=== PATIENT | female | born 1950 | race Caucasian/White ===

== ENCOUNTER → 2018-04-07 11:29 | Outpatient (CLI) | payer MEDICARE, SELFPAY ==
[2018-04-07 12:25] LABS: Anion Gap 7 (5-15); BUN 40 mg/dL (7-18); BUN/Creat Ratio 31.7 RATIO (10-20); Calcium,Total 9.1 mg/dL (8.5-10.1); Chloride 108 mmol/L (98-107); Creatinine, Serum 1.26 mg/dL (0.55-1.02); EST Glomerular Filtration Rate 45 mL/min (>60); Est Glom Filt Rate - Afr Amer 54 mL/min (>60); Glucose 165 mg/dL (74-106); Sodium Level 139 mmol/L (136-145)
== END ==
PROVIDERS: Family Provider Internal Medicine; PCP Internal Medicine; Visit Provider Internal Medicine Cardiovascular Disease
DX: I48.0 Paroxysmal atrial fibrillation (principal)
CPT/HCPCS: 36415; 80048

== ENCOUNTER 2022-05-28 03:11 | Inpatient (IN) | payer MEDICARE, SELFPAY ==
[2022-05-28] VITALS (16 sets, daily range): BP systolic 100–156; BP diastolic 58–86; PULSE 77–112; RESP 18–20; TEMP 36.8–37.6; O2SAT 89–95; BMI 37.7
--- NOTE | 2022-05-28 03:07 | PCM.HP.STD ---
HPI - General General Date of Admission: 05/28/22 Date of Service: 05/28/22 Chief Complaint: Fall, loss of balance with subsequent left femur fracture with severe pain HPI Narrative CHIQUIS STEVENS, is a 71 F who is directly admitted [facility] ED as direct admit for fall with subsequent left femur fracture. Patient had left TKR [place] [address] Niño. On 8 morning, she felt like going to bathroom for voiding urine, walked few steps on walker and then lost balance and fell down. She said she fell on the left knee and has bruise around the left knee. She did not lose loss of consciousness but had severe pain 10/10 on distal thigh/around the knee area at that time. Subsequently patient was taken to [facility], ED where they found left distal femur fracture above left knee prosthesis. I talked to ED physician Dr. Mckeon over there and he said he contacted Dr. Gerard and he would like to do surgery in [facility] therefore patient is being transferred here. Patient denies chest pain, shortness of breath, syncope, abdominal pain, dysuria or new lower urinary tract symptoms. Basic labs, imaging, EKG done in [facility] reviewed and discussed in assessment plan. [facility] Medical History Anemia Cancer Chronic back pain Chronic kidney disease, stage III (moderate) Essential (primary) hypertension High cholesterol Hyperkalemia Hyperlipidemia Osteoporosis Paroxysmal atrial fibrillation Post-menopausal Secondary pulmonary arterial hypertension Type II diabetes mellitus Home Medications aspirin 81 mg chewable tablet 81 mg PO DAILY@0800 03/04/16 [History Last Taken 03/03/16] calcium carbonate 500 mg-vitamin D3 5 mcg (200 unit) tablet 1 tab PO DAILY 03/04/16 [History Last Taken 03/03/16] gabapentin 100 mg capsule 100 mg PO TIDCM 03/04/16 [History Last Taken 03/03/16] insulin NPH isoph U-100 human 100 unit/mL (3 mL) subcutaneous pen 10 units subcut DINNER 03/04/16 [History Last Taken 03/03/16] pravastatin 20 mg tablet 10 mg PO QHS 04/11/20 [History Last Taken Unknown] acetaminophen 500 mg tablet 1,000 mg PO BID PRN Pain 05/28/22 [History Last Taken Unknown] apixaban 5 mg tablet (Eliquis) 5 mg PO BID 05/28/22 [History Last Taken Unknown] daptomycin 500 mg IV push QODAY 05/28/22 [History Last Taken Unknown] diltiazem HCl 360 mg capsule,extended release 24 hr 360 mg PO DAILY 05/28/22 [History Last Taken Unknown] ertapenem 1 gram solution for injection 0.5 g IV DAILY 05/28/22 [History Last Taken Unknown] hydrocodone-acetaminophen 5-325mg 5mg-325mg 1 tab PO Q8H PRN Pain 05/28/22 [History Last Taken Unknown] insulin NPH isoph U-100 human 100 unit/mL subcutaneous suspension (Humulin N NPH U-100 Insulin (isophane susp)) 20 unit subcut BREAKFAST 05/28/22 [History Last Taken Unknown] insulin lispro 100 unit/mL subcutaneous cartridge 5 unit subcut BREAKFAST 05/28/22 [History Last Taken Unknown] insulin lispro 100 unit/mL subcutaneous cartridge See Protocol subcut ACHS 05/28/22 [History Last Taken Unknown] latanoprost 0.005 % eye drops 1 drp EACH EYE QHS 05/28/22 [History Last Taken Unknown] losartan 25 mg PO/SL DAILY 05/28/22 [History Last Taken Unknown] metoprolol tartrate 50 mg tablet 50 mg PO Q8H 05/28/22 [History Last Taken Unknown] pantoprazole 40 mg tablet,delayed release (Protonix) 40 mg PO QHS 05/28/22 [History Last Taken Unknown] senna-docusate sodium tablet 1 tab PO BID PRN Constipation 05/28/22 [History Last Taken Unknown] Allergy/AdvReac Type Severity Reaction Status Date / Time amoxicillin [From Augmentin] Allergy PT UNSURE Verified 05/28/22 02:16 OF REACTION clavulanic acid Allergy PT UNSURE Verified 05/28/22 02:16 [From Augmentin] OF REACTION Penicillins Allergy Rash Verified 04/11/19 11:03 simvastatin [From Zocor] Allergy Rash Verified 04/11/19 11:03 lisinopril AdvReac Intermediate HYPERKALEMI Verified 04/11/19 11:03 A atorvastatin calcium AdvReac Pain in Verified 04/11/19 11:03 [From Lipitor] joints Family History Father Negative for ASCVD Mother Negative for ASCVD Surgical History History of knee replacement, total Hx of cataract surgery Social History Smoking Status: Never smoker ROS ROS Narrative Constitutional: No fever. No LOC HEENT: Reports systems reviewed and no addt'l complaints, except as documented Respiratory/Chest: Denies chest pain, shortness of breath at rest or with exertion Gastrointestinal: Denies coffee ground emesis, hematemesis or vomiting Genitourinary: Denies burning urination or new urinary tract symptoms Musculoskeletal: Left TKR 2.5. Walks on walker, loss of balance, left knee pain, current 5-6/10 intensity controlled on pain medication Neurologic: Denies seizure-like activity. No numbness or tingling or acute symptoms. skin: No ulcer. No rash Endocrinology: Reports systems reviewed and no addt'l complaints, except as documented Hematologic/Lymphatic: Reports systems reviewed and no addt'l complaints, except as documented Rest 14 ROS are negative except as mentioned in HPI Vital Signs Vital Signs Vital Signs: 05/28/22 01:49 05/28/22 02:09 Temperature 98.3 F Temperature Source Oral Pulse Rate 90 Respiratory Rate 20 H Respiratory Effort Normal Respiratory Depth Normal Respiratory Pattern Normal Blood Pressure 101/84 H Blood Pressure Mean 89 Blood Pressure Source Monitor Blood Pressure Position Semi-Fowlers Blood Pressure Location Left Forearm Pulse Ox 93 Oxygen Delivery Method Room Air Room Air Weight Weight: 204 lb 12.951 oz Body Mass Index (BMI) 37.7 Physical Exam Narrative General: Alert, Oriented x3, Cooperative, obesity grade 3, BMI 37.7 kg per metered square HEENT: Atraumatic, PERRLA, EOMI, Normocephalic Oral: Oral mucosa dry. No Gingival or Mucosal Lesions/ Ulcerations Neck: Supple, No JVD, Negative Carotid Bruits Lungs: Air entry diminished in bilateral lung bases. No crepitation/rhonchi Cardiovascular: Irregular rhythm, A. fib, Normal S1, Normal S2, No murmurs Abdomen: Bowel Sounds Present, Soft, Non Tender, Non-Distended : No renal angle tenderness. No suprapubic tenderness. Extremities: No edema, Capillary Refill Less than 3 Seconds Skin: No rashes, No breakdown Musculoskeletal: Tenderness over left distal thigh and knee. Mild bruise over medial aspect of left knee. ROM severely limited over the left knee Neurological: Cranial nerves II-XII grossly intact, DTR 2+/4 and Symmetrical, Neuro grossly intact Psych/Mental Status: flat affect Assessment & Plan Assessment/Plan (1) Closed fracture of left distal femur: (2) Paroxysmal atrial fibrillation: PLAN: Plan This is a 71-year-old female who is directly admitted on monitored bed from [facility] ED after diagnosis of left distal femur periprosthetic fracture 1. Left distal femur periprosthetic fracture: X-ray of left femur shows left distal femur periprosthetic fracture, pathological due to osteoporosis. Patient pain is controlled on pain medication currently 5-6/[address] Gerard, orthopedic surgeon consulted from [facility] ED physician. Patient took last dose of Eliquis in the evening of 05/27/2022 therefore needs 48 hours to renal clearance. Chest x-ray degenerative view shows no acute disease. Twelve-lead EKG on May 27, 2022 A. fib at 97 bpm. QTc 416 ms. ACS NSQIP risk calculated. Patient is at average risk for serious or any complication, renal failure and return to the OR. She had below average risk for pneumonia, cardiac complication, SSRI, UTI, VTE, and . No prior history of DVT/PE incentive spirometry ordered. Hold Eliquis. In SNF, patient has been walking on walker but could not calculate exact physical/functional capacity, probably less than or equal to 4 METS. Overall, it seems patient is at moderate perioperative risk for left distal femur fracture. 2. Paroxysmal A. fib/flutter on Eliquis: As mentioned above will hold Eliquis. Rate is controlled. Continue diltiazem 360 mg extended release and metoprolol tartrate 50 mg every 8 hourly. Denies history of AR/coronary artery disease or pacemaker. 3. CKD stage IIIb: BUN/creatinine 36/1.55, improved from 55/2.62 on 05/25/2022. Patient does not have clinical symptoms of UTI. UA is negative, microanalysis not indicated. Avoid nephrotoxic, diuretic. Anesthesiologist to avoid medications which are renally dependent for excretion 4. Hypertension: Current BP is 101/84. Antihypertensive medications continued with holding parameter. 5. Diabetes mellitus type 2: Patient home regimen of NPH insulin continued. Accu-Chek AC images cover with Humalog sliding scale. Glucose 194 in BMP. Last glucose check in [facility] 168. 6. Secondary pulmonary artery hypertension: Patient is not on a specific medication for that. 2D echo is ordered. 7. Dyslipidemia: Continue statin. 8. VTE prophylaxis: Bilateral SCDs. I think she will be good for 48 hours as DVT prophylaxis. Resume Eliquis when appropriate, preferably 24 hours after surgery if hemostasis is well controlled Living will/advanced directive/end of life care: Patient does have living will, signed by PCP in the chart. I reviewed it personally. Patient does not have designated power of student finance advisor for health but her niece is next of kin. After discussion of benefits/risks procedures involved with full code, DNR CC arrest and DNR CC, the patient is decided for DNR CC arrest with no intubation Patient doesn't want artificial life support including intubation, tube feed, ventilator and/chest compression, central venous catheter, vasopressor and DC shock if needed Total time spent in [id number] encounter in discussion of advanced directive 16 minutes. Charges/Coding Visit Charges Inpatient E&M: 77694 Init Hosp L3 Procedures Hospitalists Procedures: 42906 Advncd Care Plan 30 Min
[2022-05-28] MEDS: 0.45% Normal Saline 1,000 ML 75 ML IV ×2 (03:31→20:20)
[2022-05-28] MEDS: 0.9% Saline Lock 10 ML Syringe IV (03:31)
--- NOTE | 2022-05-28 03:48 | NURSING ---
Per conversation with Renetta at [facility]. Pt fell on 05/27/22 in the morning. Her last dose of Eliquis was given 05/27/22 between 1999 & 2029.
[2022-05-28] MEDS: Senna/Docusate Sodium 1 Tablet 2 TABLET PO ×2 (03:53→22:35)
[2022-05-28 03:55] LABS: Bedside Glucose 75 mg/dL (74-106)
[2022-05-28] MEDS: oxyCODONE 5 MG Tablet PO ×2 (05:50→16:46)
--- NOTE | 2022-05-28 05:55 | ECHOCS_ITS ---
Reason For Study: PRE OP Procedure This was a 2D Doppler, Color Flow transthoracic echocardiogram. Exam performed portable in patient room. Left Ventricle Normal LV size. The estimated ejection fraction is 65 %. Diastolic function is indeterminate. No regional wall motion abnormalities noted. Right Ventricle Normal RV size. Normal systolic function. Atria The left atrium is moderately enlarged. The right atrium is moderately enlarged. No doppler evidence for ASD. Mitral Valve There is moderate to severe mitral annular calcification. There is no mitral valve stenosis. Moderate (2+) mitral valve insufficiency. Tricuspid Valve There is no tricuspid stenosis. Moderate (2+) tricuspid valve insufficiency. Pulmonary artery systolic pressure is 65 mmHg. Aortic Valve Trisinus/trileaflet aortic valve. There is no aortic stenosis. No aortic valve insufficiency. Pulmonic Valve There is no pulmonic valvular stenosis. No pulmonic valve insufficiency. Great Vessels Normal aortic root. Pericardium/Pleural No pericardial effusion. MMode/2D Measurements & Calculations LVIDd: 4.6 cm IVSd: 1.3 cm Ao root diam: 3.4 cm LVIDs: 3.0 cm LVPWd: 1.6 cm RVDd: 2.3 cm FS: 34.5 % LAV(MOD-sp4): 43.0 ml LVAd ap4: 16.5 cm2 SV(MOD-sp4): 19.3 ml LVLd ap4: 6.2 cm EDV(MOD-sp4): 35.4 ml EDV(sp4-el): 36.8 ml LVAs ap4: 10.2 cm2 LVLs ap4: 5.4 cm ESV(MOD-sp4): 16.1 ml ESV(sp4-el): 16.2 ml EF(MOD-sp4): 54.6 % EF(sp4-el): 55.9 % SV(sp4-el): 20.6 ml LA A4 area: 17.1 cm2 LA dimension(2D): 4.2 cm RA A4 area: 23.3 cm2 Doppler Measurements & Calculations MV E max cady: 133.9 cm/sec Ao V2 max: 127.9 cm/sec LV V1 max: 96.7 cm/sec Ao max P.6 mmHg LV V1 max P.8 mmHg Ao V2 mean: 96.6 cm/sec LV V1 mean P.3 mmHg Ao mean P.1 mmHg LV V1 mean: 71.3 cm/sec Ao V2 VTI: 25.0 cm LV V1 VTI: 18.0 cm PA V2 max: 87.6 cm/sec TR max cady: 374.7 cm/sec TR max P.2 mmHg ECHO/Echo Complete W/ Contrast Interpretation Summary The estimated ejection fraction is 65 %. Diastolic function is indeterminate. The left atrium is moderately enlarged. The right atrium is moderately enlarged. Moderate (2+) mitral valve insufficiency. Moderate (2+) tricuspid valve insufficiency. Ordering Physician: Jairo Harris Performed By: Cecilia Payton RCS
[2022-05-28 06:56] LABS: Absolute Lymphocyte Count 1.14 X10^3/uL (0.83-4.51); Absolute Neutrophil Count 4.9 X10^3/uL (2.0-7.7); Basophil# 0.02 X10^3/uL; Basophil% 0.3 % (0-1); Eosinophil# 0.31 X10^3/uL; Eosinophils% 4.3 % (0-5); Hemoglobin 7.6 g/dL (12.0-15.0); Lymphocyte # 1.14 X10^3/ul (0.83-4.51); Lymphocyte % 15.9 % (19-41); Mean Corp Hgb Conc 30.4 g/dL (32-36); Mean Corpuscular Hgb 34.2 pg (27.0-32.0); Mean Corpuscular Volume 112.6 fL (81-99); Mean Platelet Vol. 9.4 fl (6.2-12.0); Monocyte# 0.78 X10^3/uL; Monocyte% 10.9 % (0-10); NRBC Flagged by Analyzer 0 % (0-5); Neutrophil # 4.87 X10^3/uL (2.7-7.7); Neutrophil % 67.9 % (47-70); Platelet Count 279 K/mm3 (150-450); RBC Distribution Width CV 15.9 % (11.6-14.6); RBC Distribution Width SD 64.1 fl (35.1-43.9); Red Blood Count 2.22 M/mm3 (4.2-5.4); White Blood Count 7.2 K/mm3 (4.4-11.0)
[2022-05-28 07:18] LABS: Anion Gap 5 (5-15); BUN 37 mg/dL (7-18); BUN/Creat Ratio 25.7 RATIO (10-20); Calcium,Total 8.8 mg/dL (8.5-10.1); Chloride 115 mmol/L (98-107); Creatinine, Serum 1.44 mg/dL (0.55-1.02); EST Glomerular Filtration Rate 38 mL/min (>60); Est Glom Filt Rate - Afr Amer 46 mL/min (>60); Estimated Creatinine Clearance 26.65 ml/min; Glucose 130 mg/dL (74-106); Phosphorus 3.8 mg/dL (2.5-4.9); Potassium 4.8 mmol/L (3.5-5.1); Sodium Level 143 mmol/L (136-145)
[2022-05-28 08:06] LABS: Ferritin 266 ng/mL (8-252); Iron 30 ug/dL (50-170); Iron Binding Capacity,Total 275 ug/dL (250-450); PERCENT IRON SATURATION 10.9 % (15.0-55.0)
--- NOTE | 2022-05-28 08:33 | CON.PCM_ITS ---
Assessment & Plan Assessment/Plan (1) Infection of lumbar spine: PLAN: Continue ertapenem (2) Closed fracture of left distal femur: PLAN: Natural history of the disease process and treatment options were discusse d the patient. Patient has number of confounding factors. I explained to the patient available treatment options include nonoperative treatment which likely would lead to nonunion and other medical comorbidities being exacerbated due to prolonged immobility as well as significant pain. Likelihood of returning to ambulatory status is low with proceeding to nonoperative treatment. We discussed open reduction internal fixation however, I explained that the fracture is distal and involves minimal distal bone with the prosthesis and would likely have difficult time with healing and appropriate fixation which would require significant/prolonged time of immobilization leading to similar issues with exacerbation of medical comorbidities and difficulty with returning to ambulatory status. Finally we discussed distal femoral placement as an appropriate treatment option for distal femur fracture. At this time I felt that this would be the best way to mobilize the patient and avoid exacerbation of her medical comorbidities. We have elected to proceed with this procedure. Risk and benefits of this procedure were discussed the patient including but onto blood loss, DVTs, PEs, nervous damage, infection, the risk of anesthesia loss of life. Patient is high risk for transfusion based on her anemia. I have discussed the medical team they will transfuse as appropriate. Based on the ant icipated blood loss with surgery and her history of anticoagulants I would recommend preoperative transfusion in preparation for surgical intervention. Additionally patient has active treatment for a spine infection she is receiving ertapenem will continue on these antibiotics. This places her at increased risk for infection with this procedure she will need continued antibiotic coverage for her spine infection postoperatively. Patient demonstrates an understanding of these treatment options and would like to move forward and has been adequately consented for distal femoral replacement. Plan will be to proceed with surgery tomorrow afternoon after patient has been off Eliquis for 2 days. (3) Paroxysmal atrial fibrillation: PLAN: Per medicine service, hold anticoagulation. If bridging is necessary bridge appropriately (4) Chronic kidney disease, stage III (moderate): PLAN: Per primary service (5) Anemia: PLAN: Per primary service, recommend preoperative optimization with transfusion based on anticipated blood loss (6) Type II diabetes mellitus: PLAN: Per primary service, recommend tight glucose control. HPI Consult Data Date of Consult: 05/28/22 HPI Narrative HPI Narrative: CHIQUIS STEVENS, is a 71 F who presents today with left knee pain. Patient normally lives at home however at this time she is being treated for a spine infection with IV antibiotics, she currently has a PICC line in, and mikecristin Roy. She is on ertapenem. She uses a walker for ambulation. She got up to go to the bathroom last evening and fell. Patient does not report any loss of consciousness or dizziness. It appears to been a mechanical fall or related to weakness. She had pain in her left knee and was unable to bear weight. She presented to the [facility] where the physician in the emergency department noted she had a periprosthetic distal femur fracture. Due to the complexity of the planned surgical intervention as well as the patient she was transferred to [facility] for further care. She is been admitted to the hospitalist service. Currently she reports 6 out of 10 pain better with pain medications worse with motion. She is resting comfortable with her knee in extension. She has a Davis catheter in from the emergency department. She has a PICC line in her right arm. She is getting ertapenem. She denies any associated numbness and tingling. She has significant medical comorbidities including atrial fibrillation for which she is taking Eliquis. She did get her Eliquis dose last evening. Additionally, she has significant anemia noted today and has chronic renal disease. [facility] Medical History (Updated 05/28/22 @ 08:[address] Rashi Gerard MD) Anemia Cancer Chronic back pain Chronic kidney disease, stage III (moderate) Essential (primary) hypertension High cholesterol Hyperkalemia Hyperlipidemia Osteoporosis Paroxysmal atrial fibrillation Post-menopausal Secondary pulmonary arterial hypertension Type II diabetes mellitus Home Medications aspirin 81 mg chewable tablet 81 mg PO DAILY@0800 03/04/16 [History Last Taken 03/03/16] calcium carbonate 500 mg-vitamin D3 5 mcg (200 unit) tablet 1 tab PO DAILY 03/04/16 [History Last Taken 03/03/16] gabapentin 100 mg capsule 100 mg PO TIDCM 03/04/16 [History Last Taken 03/03/16] insulin NPH isoph U-100 human 100 unit/mL (3 mL) subcutaneous pen 10 units subcut DINNER 03/04/16 [History Last Taken 03/03/16] pravastatin 20 mg tablet 10 mg PO QHS 04/11/20 [History Last Taken Unknown] acetaminophen 500 mg tablet 1,000 mg PO BID PRN Pain 05/28/22 [History Last Taken Unknown] apixaban 5 mg tablet (Eliquis) 5 mg PO BID 05/28/22 [History Last Taken Unknown] daptomycin 500 mg IV push QODAY 05/28/22 [History Last Taken Unknown] diltiazem HCl 360 mg capsule,extended release 24 hr 360 mg PO DAILY 05/28/22 [History Last Taken Unknown] ertapenem 1 gram solution for injection 0.5 g IV DAILY 05/28/22 [History Last Taken Unknown] hydrocodone-acetaminophen 5-325mg 5mg-325mg 1 tab PO Q8H PRN Pain 05/28/22 [History Last Taken Unknown] insulin NPH isoph U-100 human 100 unit/mL subcutaneous suspension (Humulin N NPH U-100 Insulin (isophane susp)) 20 unit subcut BREAKFAST 05/28/22 [History Last Taken Unknown] insulin lispro 100 unit/mL subcutaneous cartridge 5 unit subcut BREAKFAST 05/28/22 [History Last Taken Unknown] insulin lispro 100 unit/mL subcutaneous cartridge See Protocol subcut ACHS 05/28/22 [History Last Taken Unknown] latanoprost 0.005 % eye drops 1 drp EACH EYE QHS 05/28/22 [History Last Taken Unknown] losartan 25 mg PO/SL DAILY 05/28/22 [History Last Taken Unknown] metoprolol tartrate 50 mg tablet 50 mg PO Q8H 05/28/22 [History Last Taken Unknown] pantoprazole 40 mg tablet,delayed release (Protonix) 40 mg PO QHS 05/28/22 [History Last Taken Unknown] senna-docusate sodium tablet 1 tab PO BID PRN Constipation 05/28/22 [History Last Taken Unknown] Allergy/AdvReac Type Severity Reaction Status Date / Time amoxicillin [From Augmentin] Allergy PT UNSURE Verified 05/28/22 02:16 OF REACTION clavulanic acid Allergy PT UNSURE Verified 05/28/22 02:16 [From Augmentin] OF REACTION Penicillins Allergy Rash Verified 04/11/19 11:03 simvastatin [From Zocor] Allergy Rash Verified 04/11/19 11:03 lisinopril AdvReac Intermediate HYPERKALEMI Verified 04/11/19 11:03 A atorvastatin calcium AdvReac Pain in Verified 04/11/19 11:03 [From Lipitor] joints Family History Father Negative for ASCVD Mother Negative for ASCVD Surgical History History of knee replacement, total Hx of cataract surgery Social History Smoking Status: Never smoker ROS Constitutional Constitutional: Reports systems reviewed and no addt'l complaints, except as documented Eyes Eyes: Reports systems reviewed and no addt'l complaints, except as documented ENT HEENT: Reports systems reviewed and no addt'l complaints, except as documented Cardiovascular Cardiovascular: Reports systems reviewed and no addt'l complaints, except as documented Respiratory/Chest Respiratory/Chest: Reports systems reviewed and no addt'l complaints, except as documented Gastrointestinal Gastrointestinal: Reports systems reviewed and no addt'l complaints, except as documented Genitourinary Genitourinary: Reports systems reviewed and no addt'l complaints, except as documented Musculoskeletal Musculoskeletal: Reports systems reviewed and no addt'l complaints, except as documented Integumentary Integumentary: Reports systems reviewed and no addt'l complaints, except as doc umented Neurologic Neurologic: Reports systems reviewed and no addt'l complaints, except as documented Psychiatric Psychiatric: Reports systems reviewed and no addt'l complaints, except as documented Endocrine Endocrinology: Reports systems reviewed and no addt'l complaints, except as documented Hematologic/Lymphatic Hematologic/Lymphatic: Reports systems reviewed and no addt'l complaints, except as documented Allergic/Immunologic Allergic/Immunologic: Reports systems reviewed and no addt'l complaints, except as documented Physical Exam Const alert and oriented x3 Constitutional Narrative: Obese General Appearance: cooperative Orientation / Consciousness: awake HEENT normocephalic Eyes PERRL Neck No nuchal rigidity Resp normal respiratory effort Cardio Negative for diaphoretic Jugular Venous Distention: Negative for JVD GI non-distended GI Narrative: Obese Narrative: Davis catheter in place Back/Spine Back/Spine Narrative: There was no assistance was unable to roll the patient. Extremity Extremity Narrative: Left lower extremity: Ecchymosis and swelling over the distal thigh. Tenderness palpation around the knee and distal thigh. Range of motion and strength exam were deferred secondary to pain. Positive dorsiflexion EHL plantar flexion. Sensations intact light touch saphenous, sural, supers peroneal, deep peroneal tibial nerve distributions. Calves are soft and supple with no streaking or cords. Skin no jaundice Neuro oriented x3 Psych affect normal Medical Records Data Attestation: I reviewed the patient's medical records Lab / Micro Data Attestation: I reviewed the patient's lab results. Result Diagrams: 05/28/22 05:45 05/28/22 05:45 Labs: Laboratory Results - last 24 hr 05/28/22 03:33: POC Glucose 75 05/28/22 05:45: WBC 7.2, RBC 2.22 L, Hgb 7.6 L, Hct 25.0 L, MCV 112.6 H, MCH 34.2 H, MCHC 30.4 L, RDW Std Deviation 64.1 H, RDW Coeff of Sherif 15.9 H, Plt Count 279, MPV 9.4, Immature Gran % (Auto) 0.700, Neut % (Auto) 67.9, Lymph % (Auto) 15.9 L, Wilbarger % (Auto) 10.9 H, Eos % (Auto) 4.3, Baso % (Auto) 0.3, Absolute Neuts (auto) 4.9, Absolute Lymphs (auto) 1.14, Nucleated RBC % 0 05/28/22 05:45: Sodium 143, Potassium 4.8, Chloride 115 H, Carbon Dioxide 23.0, Anion Gap 5, BUN 37 H, Creatinine 1.44 H, Estim Creat Clear Calc 26.65, Est GFR (MDRD) Af Amer 46 L, Est GFR (MDRD) Non-Af 38 L, BUN/Creatinine Ratio 25.7 H, Glucose 130 H, Calcium 8.8, Phosphorus 3.8, Magnesium 2.0 05/28/22 05:45: Iron 30 L, TIBC 275, Iron Saturation 10.9 L, Ferritin 266 H
[2022-05-28 08:50] LABS: Bedside Glucose 118 mg/dL (74-106)
[2022-05-28] MEDS: Aspirin 81 MG TAB.CHEW PO (08:56)
[2022-05-28] MEDS: Metoprolol Tartrate 50 MG Tablet PO ×3 (08:56→23:48)
[2022-05-28] MEDS: dilTIAZem CD 180 MG Capsule 360 MG PO (08:56)
[2022-05-28] MEDS: Calcium Carb/Vitamin D 1 TABLET Tablet PO (08:56)
[2022-05-28] MEDS: Pantoprazole Sodium 40 MG Tablet PO (08:57)
[2022-05-28] MEDS: Acetaminophen 325 MG Tablet 650 MG PO ×2 (08:58→16:45)
[2022-05-28] MEDS: Gabapentin 100 MG Capsule PO ×3 (08:59→16:46)
[2022-05-28] MEDS: Insulin NPH Human 100 UNITS/ML PEN 20 UNITS SC (09:00)
[2022-05-28] MEDS: Nystatin Powder 15gm Bottle 1 APPLIC TOPICAL ×2 (11:20→22:33)
[2022-05-28 11:45] LABS: Bedside Glucose 84 mg/dL (74-106)
--- NOTE | 2022-05-28 12:07 | NURSING ---
Patient and caregiver Esta at bedside, declines to sign operation consent at this time, states they would like to give more consideration to option since they have spoken directly with Dr. Gerard.
--- NOTE | 2022-05-28 12:09 | CASEMGMT ---
Social Work NOLAN met with pt and two nieces Francisco and Jocy. NOLAN introduced self and role of SW. Pt had been living at home alone and independently with niece Francisco across the drive from her. Last pt was admitted to [facility] for 6 weeks of IV ATB. Pt fell at SNF and now presents with femur fx. Pt and family state they have met with ortho and are considering options for femur fx. Per pt and family, currently the plan will be for pt to return to [facility]. NOLAN spoke with pt regarding advance directives and pt does not have these documents but would like to complete. NOLAN assisted pt in completing Living Will and Health care POA naming her niece Francisco Baxter. Originals given to pt and copies placed on pt chart. NOLAN will assist pt in returning to [facility] when pt is ready for d/c. GENEVIEVE Padgett
--- NOTE | 2022-05-28 12:21 | PN.HOSP_ITS ---
Subjective Subjective Patient seen and examined. She complained of pain in her left hip, especially with movement. She has no other complaints. hb is 7.6. She denies any history of anemia, or any dark stools or bright red blood per rectum, or any coffee ground emesis. She also denies any history of PUDx. Review of systems is otherwise n egative. Objective Data Objective Data Vital Signs: Vital Signs Temp Pulse Resp BP Pulse Ox O2 Del Method 98.5 F 102 H 20 H 142/78 H 93 Room Air 05/28/22 08:13 05/28/22 12:04 05/28/22 08:13 05/28/22 08:13 05/28/22 08:13 05/28/22 08:13 Oxygen Delivery Method Room Air Weight: 207 lb 3.752 oz Body Mass Index (BMI) 37.7 Intake & Output: Intake and Output for Last 24 Hours 05/26/22 05/27/22 05/28/22 23:59 23:59 23:59 Intake Total 400 / 400 Output Total 300 / 300 Balance 100 / 100 Lab / Micro Data Result Diagrams: 05/28/22 05:45 05/28/22 05:45 Labs: Laboratory Results - last 24 hr 05/28/22 03:33: POC Glucose 75 05/28/22 05:45: WBC 7.2, RBC 2.22 L, Hgb 7.6 L, Hct 25.0 L, MCV 112.6 H, MCH 34.2 H, MCHC 30.4 L, RDW Std Deviation 64.1 H, RDW Coeff of Sherif 15.9 H, Plt Count 279, MPV 9.4, Immature Gran % (Auto) 0.700, Neut % (Auto) 67.9, Lymph % (Auto) 15.9 L, [place] % (Auto) 10.9 H, Eos % (Auto) 4.3, Baso % (Auto) 0.3, Absolute Neuts (auto) 4.9, Absolute Lymphs (auto) 1.14, Nucleated RBC % 0 05/28/22 05:45: Sodium 143, Potassium 4.8, Chloride 115 H, Carbon Dioxide 23.0, Anion Gap 5, BUN 37 H, Creatinine 1.44 H, Estim Creat Clear Calc 26.65, Est GFR (MDRD) Af Amer 46 L, Est GFR (MDRD) Non-Af 38 L, BUN/Creatinine Ratio 25.7 H, Glucose 130 H, Calcium 8.8, Phosphorus 3.8, Magnesium 2.0 05/28/22 05:45: Iron 30 L, TIBC 275, Iron Saturation 10.9 L, Ferritin 266 H 05/28/22 08:05: POC Glucose 118 H 05/28/22 11:22: POC Glucose 84 Physical Exam Const alert, oriented x3 and no apparent distress HEENT head/scalp atraumatic and moist oral mucous membranes Head and Scalp: normocephalic Mouth: oral and palatal mucosa normal Eyes PERRL, EOMs intact bilaterally and conjunctivae normal Neck no lymphadenopathy and supple Resp normal respiratory effort, no retractions, no use of accessory muscles and clear to auscultation bilaterally Cardio regular rate, regular rhythm, S1 normal heart sound, S2 normal heart sound and no murmurs GI normal to inspection, nondistended, normoactive bowel sounds, soft to palpation and non-tender Extremity Extremity Narrative: LLE externally rotated Neuro oriented x3, CN's II-XII intact bilaterally and no focal motor deficits Sensorium / Orientation: awake Psych affect normal Assessment & Plan Assessment/Plan (1) Closed fracture of left distal femur: PLAN: Plan #Left distal femoral fracture due to mechanical fall * orthopedic surgery on board * for surgery tomorrow * eliquis on hold * PT/OT on board * fall precautions * continue current pain meds * #Anemia * Hemoglobin is 7.6. Patient denies any history of peptic ulcer disease * Iron panel ordered. Stool for occult blood also ordered. Iron panel showed low iron level of 13 with TIBC of 275 and iron saturation of only 10.9 with ferritin only mildly elevated at 266. * Stool for occult blood is pending. We will check vitamin B12 and folate as well as anemia appears to be a macrocytic anemia. * Start on p.o. pantoprazole 40 mg daily. * Transfuse with 1 unit of packed red blood cells to optimize patient prior to surgery. * Will likely benefit from follow-up with gastroenterology on outpatient basis for further work-up * #Paroxysmal A. fib: Eliquis on hold. On Cardizem and metoprolol. #Hypertension: on metoprolol #Type 2 diabetes mellitus; on NPH insulin 10 units qhs and 20 units qam. Insulin sliding scale. Accu-Cheks ACH S. #Dyslipidemia: On statin #CKD stage IIIb: Creatinine is 1.44. Previous labs from 2018 showed creatinine of 1.26. Will monitor. DVT prophylaxis: SCDs Charges/Coding Visit Charges Inpatient E&M: 21034 Subs Hosp L3
--- NOTE | 2022-05-28 12:56 | CASEMGMT ---
Discharge Automatic Toe Laster Teresa rice/[employer] production assistant faxed patient update to mandi arceo. Teresa Del Toro Discharge Automatic Toe Laster
[2022-05-28 14:02] LABS: Vitamin B12 591 pg/mL (211-911)
[2022-05-28 16:45] LABS: Bedside Glucose 116 mg/dL (74-106)
[2022-05-28] MEDS: Insulin NPH Human 100 UNITS/ML PEN 10 UNITS SC (16:46)
--- NOTE | 2022-05-28 18:55 | NURSING ---
blood done, NS flush bag infusing to flush line.
[2022-05-28] MEDS: Pravastatin 20 MG Tablet 10 MG PO (22:34)
[2022-05-28] MEDS: Latanoprost 0.005% 1 Bottle 1 DRP EACH EYE (22:35)
[2022-05-29] VITALS (48 sets, daily range): BP systolic 45–150; BP diastolic 23–92; PULSE 38–120; RESP 14–28; TEMP 35.4–37.7; O2SAT 88–100; BMI 38.2
[2022-05-29 00:10] LABS: Bedside Glucose 143 mg/dL (74-106)
[2022-05-29 05:57] LABS: Absolute Lymphocyte Count 1.05 X10^3/uL (0.83-4.51); Basophil# 0.04 X10^3/uL; Basophil% 0.5 % (0-1); Eosinophil# 0.29 X10^3/uL; Eosinophils% 3.5 % (0-5); Hematocrit 25.3 % (37-47); Hemoglobin 8.3 g/dL (12.0-15.0); Lymphocyte # 1.05 X10^3/ul (0.83-4.51); Lymphocyte % 12.5 % (19-41); Mean Corp Hgb Conc 32.8 g/dL (32-36); Mean Corpuscular Hgb 34.2 pg (27.0-32.0); Mean Corpuscular Volume 104.1 fL (81-99); Mean Platelet Vol. 9.4 fl (6.2-12.0); Monocyte# 0.96 X10^3/uL; Monocyte% 11.5 % (0-10); NRBC Flagged by Analyzer 0.4 % (0-5); Neutrophil # 5.97 X10^3/uL (2.7-7.7); Neutrophil % 71.3 % (47-70); POSITIVE MORPHOLOGY YES; Platelet Count 252 K/mm3 (150-450); RBC Distribution Width CV 19.2 % (11.6-14.6); Red Blood Count 2.43 M/mm3 (4.2-5.4); White Blood Count 8.4 K/mm3 (4.4-11.0)
[2022-05-29 06:00] LABS: Differential Indicated SCAN CRITERIA MET
[2022-05-29] MEDS: oxyCODONE 5 MG Tablet PO ×2 (06:05→23:07)
[2022-05-29] MEDS: Acetaminophen 325 MG Tablet 650 MG PO (06:05)
[2022-05-29 06:21] LABS: Anisocytosis 2+; Macrocytosis 2+
[2022-05-29 06:30] LABS: Bedside Glucose 133 mg/dL (74-106)
[2022-05-29 06:30] LABS: International Normalized Ratio 1.5; Partial Thromboplast Time 37.5 Seconds (24.1-36.2); Prothrombin Time (Protime)PT. 17.5 SECONDS (11.7-14.9)
[2022-05-29 06:38] LABS: Anion Gap 6 (5-15); BUN 30 mg/dL (7-18); BUN/Creat Ratio 24.2 RATIO (10-20); Calcium,Total 8.2 mg/dL (8.5-10.1); Chloride 111 mmol/L (98-107); Creatinine, Serum 1.24 mg/dL (0.55-1.02); EST Glomerular Filtration Rate 45 mL/min (>60); Est Glom Filt Rate - Afr Amer 55 mL/min (>60); Estimated Creatinine Clearance 30.95 ml/min; Glucose 129 mg/dL (74-106); Potassium 5.1 mmol/L (3.5-5.1); Sodium Level 140 mmol/L (136-145)
[2022-05-29 07:38] LABS: Hemoglobin A1c 6.9 % (3.8-5.6)
[2022-05-29] MEDS: Gabapentin 100 MG Capsule PO (07:50)
[2022-05-29] MEDS: Metoprolol Tartrate 50 MG Tablet PO (08:04)
[2022-05-29] MEDS: 0.45% Normal Saline 1,000 ML 75 ML IV (09:02)
[2022-05-29] MEDS: dilTIAZem CD 180 MG Capsule 360 MG PO (09:03)
[2022-05-29] MEDS: Nystatin Powder 15gm Bottle 1 APPLIC TOPICAL ×2 (09:11→23:15)
[2022-05-29] MEDS: Calcium Carb/Vitamin D 1 TABLET Tablet PO (09:11)
[2022-05-29] MEDS: Pantoprazole Sodium 40 MG Tablet PO (09:11)
[2022-05-29] MEDS: Senna/Docusate Sodium 1 Tablet 2 TABLET PO (09:12)
--- NOTE | 2022-05-29 09:32 | PN.HOSP_ITS ---
Subjective Subjective Patient seen and examined. Her caretakers were by her bedside. She had no active complaints and had an uneventful night. Review of systems is otherwise negative. hb is up to 8.6 today after she was transfused with 1 unit of PRBC. She is a bit tachycardic today. REview of systems is otherwise negative. Objective Data Objective Data Vital Signs: Vital Signs Temp Pulse Resp BP Pulse Ox O2 Del Method O2 Flow Rate 99 F 116 H 18 116/65 96 Nasal Cannula 2 05/29/22 07:59 05/29/22 08:04 05/29/22 07:59 05/29/22 08:04 05/29/22 07:59 05/29/22 07:59 05/29/22 07:43 Oxygen Flow Rate (L/min) 2 Oxygen Delivery Method Nasal Cannula Weight: 207 lb 14.334 oz Body Mass Index (BMI) 37.7 Intake & Output: Intake and Output for Last 24 Hours 05/27/22 05/28/22 05/29/22 23:59 23:59 23:59 Intake Total 2120.75 / 2120.75 918.75 / 918.75 Output Total 1125 / 1125 500 / 500 Balance 995.75 / 995.75 418.75 / 418.75 Lab / Micro Data Result Diagrams: 05/29/22 04:59 05/29/22 04:59 Labs: Laboratory Results - last 24 hr 05/28/22 11:22: POC Glucose 84 05/28/22 13:20: Blood Type O NEGATIVE, Antibody Screen NEGATIVE, Crossmatch See Detail 05/28/22 13:20: Vitamin B12 591 05/28/22 16:19: POC Glucose 116 H 05/28/22 22:25: POC Glucose 143 H 05/29/22 04:59: PT 17.5 H, INR 1.5, APTT 37.5 H 05/29/22 04:59: Hemoglobin A1c 6.9 H 05/29/22 04:59: WBC 8.4, RBC 2.43 L, Hgb 8.3 L, Hct 25.3 L, MCV 104.1 H D, MCH 34.2 H, MCHC 32.8 D, RDW Std Deviation 72.0 H, RDW Coeff of Sherif 19.2 H, Plt Count 252, MPV 9.4, Immature Gran % (Auto) 0.700, Neut % (Auto) 71.3 H, Lymph % (Auto) 12.5 L, [place] % (Auto) 11.5 H, Eos % (Auto) 3.5, Baso % (Auto) 0.5, Absolute Neuts (auto) 6.0, Absolute Lymphs (auto) 1.05, Nucleated RBC % 0.4, Anisocytosis 2+, Macrocytosis 2+ 05/29/22 04:59: Sodium 140, Potassium 5.1, Chloride 111 H, Carbon Dioxide 23.0, Anion Gap 6, BUN 30 H, Creatinine 1.24 H, Estim Creat Clear Calc 30.95, Est GFR (MDRD) Af Amer 55 L, Est GFR (MDRD) Non-Af 45 L, BUN/Creatinine Ratio 24.2 H, Glucose 129 H, Calcium 8.2 L 05/29/22 06:07: POC Glucose 133 H Radiography Diagnostic Testing: Radiology Impression Echocardiogram 05/28/22 05:55 Interpretation Summary The estimated ejection fraction is 65 %. Diastolic function is indeterminate. The left atrium is moderately enlarged. The right atrium is moderately enlarged. Moderate (2+) mitral valve insufficiency. Moderate (2+) tricuspid valve insufficiency. ___ Ordering Physician: Jairo Harris Performed By: Cecilia Payton RCS Physical Exam Const alert, oriented x3 and no apparent distress HEENT head/scalp atraumatic and moist oral mucous membranes Eyes PERRL, EOMs intact bilaterally and conjunctivae normal Neck no lymphadenopathy and supple Resp normal respiratory effort, no retractions, no use of accessory muscles and clear to auscultation bilaterally Cardio regular rhythm, S1 normal heart sound, S2 normal heart sound and no murmurs Cardio Narrative: tachycardic GI normal to inspection, nondistended, normoactive bowel sounds, soft to palpation and non-tender Extremity Extremity Narrative: LLE externally rotated, tender to touch Neuro oriented x3, CN's II-XII intact bilaterally and no focal motor deficits Sensorium / Orientation: awake Psych affect normal Assessment & Plan Assessment/Plan (1) Closed fracture of left distal femur: PLAN: Plan #Left distal femoral fracture due to mechanical fall * orthopedic surgery on board * for surgery today * eliquis on hold * PT/OT on board * fall precautions * continue current pain meds * #Anemia * appears to be an iron deficiency anemia * she was transfused with one unit of PRBC yesterday * Hemoglobin is 7.6. Patient denies any history of peptic ulcer disease * Iron panel showed low iron level of 13 with TIBC of 275 and iron saturation of only 10.9 with ferritin only mildly elevated at 266. * vitamin B12 is WNL. rbc folate is pending * on PO pantoprazole 40mg daily * in light of iron deficiency anemia, will consult GI for evaluation, especially as decision will have to be made about whether to continue blood thinners or otherwise. * type and cross for surgery * * #Paroxysmal A. fib: Eliquis on hold. On Cardizem and metoprolol. #Hypertension: on metoprolol #Type 2 diabetes mellitus; on NPH insulin 10 units qhs and 20 units qam. Insulin sliding scale. Accu-Cheks ACH S. A1C is 6.9 #Dyslipidemia: On statin #CKD stage IIIb: Creatinine is 1.24 today. Previous labs from 2018 showed creatinine of 1.26. Will monitor. DVT prophylaxis: SCDs Charges/Coding Visit Charges Inpatient E&M: 20758 Subs Hosp L2
--- NOTE | 2022-05-29 10:24 | CASEMGMT ---
Social Work Phone call to Margaret at [facility] and updated given that surgery is scheduled for today. Margaret confirms pt can return to [facility] when medically ready. Green sheet placed on pt chart in the event pt is ready for discharge over the weekend. Pt will need a negative covid test to return to [facility]. Plan: [facility], skilled level of care when medically ready. GENEVIEVE Padgett
--- NOTE | 2022-05-29 11:31 | PCM.PN.ORT ---
Objective Data Objective Data Vital Signs: Vital Signs Temp Pulse Resp BP Pulse Ox O2 Del Method O2 Flow Rate 98.2 F 101 H 18 127/77 H 100 Room Air 2 05/29/22 11:10 05/29/22 11:10 05/29/22 11:10 05/29/22 11:10 05/29/22 11:10 05/29/22 11:10 05/29/22 10:00 Oxygen Flow Rate (L/min) 2 Oxygen Delivery Method Room Air Weight: 207 lb 14.334 oz Body Mass Index (BMI) 38.2 Intake & Output: Intake and Output for Last 24 Hours 05/27/22 05/28/22 05/29/22 23:59 23:59 23:59 Intake Total 2120.75 / 2120.75 973.75 / 973.75 Output Total 1125 / 1125 500 / 500 Balance 995.75 / 995.75 473.75 / 473.75 Lab / Micro Data Result Diagrams: 05/29/22 04:59 05/29/22 04:59 Labs: Laboratory Results - last 24 hr 05/28/22 11:22: POC Glucose 84 05/28/22 13:20: Blood Type O NEGATIVE, Antibody Screen NEGATIVE, Crossmatch See Detail 05/28/22 13:20: Vitamin B12 591 05/28/22 13:20: Crossmatch See Detail 05/28/22 16:19: POC Glucose 116 H 05/28/22 22:25: POC Glucose 143 H 05/29/22 04:59: PT 17.5 H, INR 1.5, APTT 37.5 H 05/29/22 04:59: Hemoglobin A1c 6.9 H 05/29/22 04:59: WBC 8.4, RBC 2.43 L, Hgb 8.3 L, Hct 25.3 L, MCV 104.1 H D, MCH 34.2 H, MCHC 32.8 D, RDW Std Deviation 72.0 H, RDW Coeff of Sherif 19.2 H, Plt Count 252, MPV 9.4, Immature Gran % (Auto) 0.700, Neut % (Auto) 71.3 H, Lymph % (Auto) 12.5 L, [place]ke % (Auto) 11.5 H, Eos % (Auto) 3.5, Baso % (Auto) 0.5, Absolute Neuts (auto) 6.0, Absolute Lymphs (auto) 1.05, Nucleated RBC % 0.4, Anisocytosis 2+, Macrocytosis 2+ 05/29/22 04:59: Sodium 140, Potassium 5.1, Chloride 111 H, Carbon Dioxide 23.0, Anion Gap 6, BUN 30 H, Creatinine 1.24 H, Estim Creat Clear Calc 30.95, Est GFR (MDRD) Af Amer 55 L, Est GFR (MDRD) Non-Af 45 L, BUN/Creatinine Ratio 24.2 H, Glucose 129 H, Calcium 8.2 L 05/29/22 06:07: POC Glucose 133 H Radiography Diagnostic Testing: Radiology Impression Echocardiogram 05/28/22 05:55 Interpretation Summary The estimated ejection fraction is 65 %. Diastolic function is indeterminate. The left atrium is moderately enlarged. The right atrium is moderately enlarged. Moderate (2+) mitral valve insufficiency. Moderate (2+) tricuspid valve insufficiency. Ordering Physician: Jairo Harris Performed By: Cecilia Payton RCS Assessment & Plan Assessment/Plan (1) Closed fracture of left distal femur: PLAN: Patient seen and examined in the preoperative area today. Left lower extremity was marked after agreeing this was appropriate extremity for surgery. Exam is unchanged. Patient had an uneventful night. She did receive packed red blood cells. Hemoglobin remained 8.3 she will receive blood intraoperatively per anesthesia's request. At this time after having time to contemplate risks and benefits of surgical procedure family and patient wished to proceed as planned yesterday. Antibiotics on-call to the operating room. Joint compound will be ordered. TXA will be ordered for lavage of the wound. We will proceed with surgery this afternoon.
[2022-05-29] MEDS: Cefazolin 2 GM in 0.9% Normal Saline 100 ML IV (11:37)
--- NOTE | 2022-05-29 13:30 | KNEE_PTH ---
PATIENT: CHIQUIS STEVENS LOC: [facility] U#:[id number] AGE/SX: 71/F ROOM: [facility]02 RE05/28/[address]: Dr. Jac Payan DO : 1950 BED: 1 DIS: 06/01/2022 SPEC #: [id number] RECD: 05/29/22 15:59 STATUS: STORM REMary #: [id number] SOTERO: 05/29/22 13:[address]: Rashi Gerard DEPT: SURGICAL PATHOLOGY RECD BY: Martha Luz ENTERED: 06/01/22 08:42 SP TYPE: TOTAL KNEE OTHR DR: MD Dr. Josh Alvarez MD Dr. Derek Brown, DO Dr. Eric Jopperi, DO Dr. Nana Yaa Koram, MD Dr. Natthavat Tanphaichitr, MD Dr. Prakash Chand, MD Christina Muller, OPERATOR/ASSISTANT FOREMAN-C Tissues: Knee, NOS Procedures: Decalcification bone/plaque Surgery Specimen Level IV HEADER OPERATION: Distal femoral replacement PRE-OP DIAGNOSIS: Closed fracture of left distal femur TISSUE SUBMITTED: Bone, soft tissue and hardware of left knee MICROSCOPIC DIAGNOSIS Bone, soft tissue and hardware of left knee: Fragments of bone with focal area of hemorrhage, clinically fracture. Orthopedic hardware (gross only). MICROSCOPIC DESCRIPTION Slides are reviewed. GROSS DESCRIPTION Received is one container designated left knee. The specimen consists of orthopedic hardware and bone fragments. One of the piece consists of metallic hardware, resembling tibial condyles, and measures 7 x 5 x 4.5 cm. Second piece consists of metallic hardware, resembling femoral condyles and containing bone and measures 7 x.6.5 x 5 cm. Third piece consists of polymer, resembling tibial condyle and measures 7 x 4.0 x 1.5 cm. Multiple detached fragments of bone also noted measuring in aggregate 7 x 6 x 2 cm. Sewer Inspector sections are submitted in three cassettes after decalcification. /TIA:gallo 06/01/22 TC:5 CPT: 66685, 09494
[2022-05-29] MEDS: Vancomycin IV 1,000 MG/20 ML Vial 2000 MG OPERA.SITE (14:05)
[2022-05-29 14:23] LABS: Hematocrit 24.3 % (37-47); Hemoglobin 7.8 g/dL (12.0-15.0)
--- NOTE | 2022-05-29 14:58 | PCM.OPRPT ---
Report of Operation Date of Procedure: 05/29/22 Pre-Operative Diagnosis: Left periprosthetic distal femur fracture with minimal distal bone Post-Operative Diagnosis: Left periprosthetic distal femur fracture with minimal distal bone Surgery/Procedure Performed:: Revision left total knee replacement to hinged prosthesis/distal femoral replacement both components Description of Surgical Findings:: Stable reduction. Leg lengths appeared equal based on patient's supine position Surgeon: Rashi Gerard bridge gang worker: Wendy Rosenberg Type of Anesthesia: General Anesthesiologist: Jac Brown Special Medications: 2 g Ancef, 2 g TXA lavage, joint cocktail (5 mg Duramorph, 30 mL of 0.5% Ropivicaine, 1000 units of epinephrine, 30 mg of Toradol), 2 g vancomycin powder in wound Specimen's removed: 3 separate specimens were sent to microbiology Estimated Blood Loss (mL): 700 Fluids Replaced: 600 mL crystalloid, 1 unit packed red blood cells Description of Procedure: On the date of the procedure patient was seen and examined in the preoperative area. We again discussed desire to proceed with surgery. Patient agreed left lower extremity was appropriate extremity for surgery was marked. Patient was brought back to the operating room where anesthesia assumed control of the C-spine and airway. After anesthesia was administered patient was transferred to the operating table in the supine position. All bony prominences were identified well-padded. Left lower extremity was then prepped in a sterile fashion after tourniquet had been placed on the left upper thigh. While the leg was being prepped the surgeon scrubbed. Upon reentering the room the left lower extremity was draped in a standard orthopedic fashion. Incision was marked out using the previous incision and extending it proximally distally. Timeout was called everyone agreed upon the side, site, procedure to be performed, patient's identity and antibiotics given. After everyone agreed Esmarch bandage was used to exsanguinate the extremity and tourniquet was placed to 250 mmHg. Incision was taken down through skin subtenons tissue fat down to fascia. Once to identify the patella and extensor mechanism we carefully created medial lateral cutaneous flaps. Knee was flexed up and a medial parapatellar arthrotomy was made. Once we entered the joint we identified the fracture in the distal femoral component. Femoral component was removed and the distal femoral fractured bone was also removed. Prior to doing this we did measure out for our planned prosthesis 80 mm. A 80 mm saw score was placed in the bone proximal to the joint for cutting later. Once this was removed we carefully flexed up the knee and expose the proximal bone. We placed retractors behind the femur and made our soft cut for the 80 mm cut. Again this cut was based off of the measured length of the prosthesis. We then directed our attention to the tibia where the tibial component was removed using a TPS saw and flexible osteotomes. Once the tibial component was removed the residual cement was removed and we began preparing the tibia. With the knee flexed we made a tibial saw skin cut neutral to the tibial axis. Once this was done we reamed for a cone. We then prepared for the tibial baseplate. Tibial baseplate trial was then placed we direct our attention to the femur. Femur was reamed up to 12 mm. We were not able to ream beyond this due to fear of fracture as the 12 mm reamer was catching up in torquing the femur. We then used the 127 mm x 11 mm trial to trial the femur with the 65 mm small body. Once this was done we then placed the trial bearings. Knee was taken through range of motion. We could operate the medial malleolus on the contralateral side. Leg lengths appeared equal based on the patient's supine position. Knee can flex with good patella tracking. We then doubt in the femoral rotation which allowed flexion of the knee without excessive internal extra rotation. Once this was done the rotation of the femoral and tibial components were marked. Components were removed and the knee and final components were verified and opened. The wound was swetha irrigated out with 6 L normal saline. Cement was mixed and the femur was cemented into place. Once this was done we then cemented the tibia into place after placing the tibial cone. Cement restrictors were placed proximally and distally in the femur and tibia. Once the cemented implants were placed. We again trialed using the trial femoral body and noted that we were again happy with the 10 mm tibial insert. Once this was done we opened the 10 mm tibial insert. The bushings were placed in the tibia and femur. Polyethylene was put into place as well as the rotating portion of the hands. The femur was flexed up bushings were placed in the femur. The trunnion was cleaned and the femoral body was impacted into place. Sauceda taper was tested and was appropriate. At this time we were able to place the pin across the bushings and the knee showed appropriate leg lengths good range of motion good patella tracking. Hemostasis was obtained. 3-minute dilute Betadine lavage performed. 1 minute chlorhexidine lavage was performed. Copious amounts of irrigation with normal saline were irrigated throughout the wound. The wound was then closed in a layered whitman fashion using #1 Vicryl for the arthrotomy. The deep layers were closed with a combination of #1 Vicryl and #1 strata fix. There was very poor fatty tissue which made tight closure very difficult. We then used 2-0 Vicryl to close the subcutaneous layer and final skin closure was done with 2-0 nylon sutures. Sterile silver dressing was placed. Patient was awakened by anesthesia and transferred the PACU for recovery in stable condition. During the procedure her blood pressure did remain low. Repeat H&H was performed and 7.8 hemoglobin was noted. Based on this and anticipated continued blood loss as well as her cardiac history we elected to proceed with 1 more unit of packed red blood cells in the PACU. Postop plan: DVT prophylaxis: Patient will resume Eliquis tomorrow Other prophylaxis: Patient be placed on antibiotics for 2 weeks as wound heals and we follow cultures doxycycline 100 mg p.o. twice daily. Therapy: Weightbearing as tolerated, range of motion as tolerated. Follow-up: Patient will follow up in the office in 2 weeks for wound check and x-ray check. Grafts/Implants Used: [place] GMR S Complications No intraoperative complications Admit VTE Documentation VTE Present on Admission: No VTE Mechan Device Prophylaxis: SCD's and Thigh High TAMRA Hose VTE Pharm Prophylaxis ordered?: Yes
[2022-05-29 15:51] LABS: Bedside Glucose 238 mg/dL (74-106)
--- NOTE | 2022-05-29 16:07 | PN_ITS ---
Progress Note I was informed by anesthesiology that patient came out of surgery quite hypotensive with blood pressure down in the 80s systolic. At the time of saman herb to anesthesia blood pressure was 85/24. It appeared that patient had lost about 1 L of blood during surgery. 2 units of blood have been ordered and patient is being transferred to the ICU for postop monitoring. She has been started on [place]-Synephrine in the ED. We will continue with Levophed in the ICU to titrate to an MAP of more than 65. Warehouse Pricing And Inventory Clerk consulted.
--- NOTE | 2022-05-29 16:11 | NURSING ---
Family informed anaesthesia would like to speak to them down in surgical waiting room. Francisco and her spouse state they know where to go and left floor to go to waiting room.
--- NOTE | 2022-05-29 16:22 | EKG12_ITS ---
Test Reason : POST OP Blood Pressure : / mmHG Vent. Rate : 048 BPM Atrial Rate : 267 BPM P-R Int : 000 ms QRS Dur : 070 ms QT Int : 456 ms P-R-T Axes : 000 -15 -01 degrees QTc Int : 407 ms Atrial flutter with variable A-V block Nonspecific ST abnormality Abnormal ECG No previous ECGs available Confirmed by PENG SHIN, TEE ([id number]), technical editor KYRA YOUNG ([id number]) on 06/01/2022 2:10:15 PM Referred By: AMISHA Confirmed By:TEE KHOURY MD
--- NOTE | 2022-05-29 16:47 | RAD_ITS ---
STUDY: X-RAY - LEFT KNEE REASON FOR EXAM: Female, 71 years old. post op -- AP and Lateral xray of operative knee in PACU TECHNIQUE: 4 view(s) of the knee. COMPARISON: None. FINDINGS: There is a total knee arthroplasty in place. The alignment is grossly anatomic. There are postsurgical changes within the soft tissues of the ventral knee. There are vascular calcifications. Electronically Signed: Simona Huynh MD at 18:13 EDT , RAD/Knee 1 or 2 Views IMPRESSION: undefined
[2022-05-29 16:50] LABS: Base Excess -10 mmol/L (-2 to +2); Bicarbonate 16.4 mmol/L (22-26); Blood Gas Specimen Type ART; PO2 117 mmHG (75-100); SITE Art Line; SO2 98 % (95-99); Total Carbon Dioxide 17 mmol/L; pCO2 34.9 mmHg (35-45); pH 7.28 (7.35-7.45)
--- NOTE | 2022-05-29 16:55 | PCM.PN.BLA ---
Progress Note 4:55pm Patient seen down in PACU. She is responsive. Her blood pressure remains down in the 20s diastolic but systolic has gone up to the 100s. ABG was done showed pH of 7.29 with PCO2 of 34 and bicarb level of 16 indicating metabolic acidosis. Troponins have been ordered as well as CBC. BMP and lactic acid also ordered. Since patient's blood pressure is not improving significantly on Raleigh-Synephrine, will switch to Levophed. I spoke to patient about her CODE STATUS. She clarifies that she does not want any attempts at intubation or CPR if needed. I discussed this with her niece and the who are her primary caregivers and they clarified that patient had always stated that if her heart stopped no attempt should be made to revive. She did not want to be intubated ever. CODE STATUS therefore remains DNR CCA no intubation. Family updated about patient's condition and patient needs to be transferred up to ICU. Total [id number] time about CODE STATUS clarification 17 minutes. Procedures Hospitalists Procedures: 97353 Advncd Care Plan 30 Min
[2022-05-29 17:02] LABS: Hematocrit 22.8 % (37-47); Hemoglobin 7.2 g/dL (12.0-15.0); Mean Corp Hgb Conc 31.6 g/dL (32-36); Mean Corpuscular Hgb 31.2 pg (27.0-32.0); Mean Corpuscular Volume 98.7 fL (81-99); Mean Platelet Vol. 9.4 fl (6.2-12.0); Platelet Count 168 K/mm3 (150-450); RBC Distribution Width CV 17.8 % (11.6-14.6); RBC Distribution Width SD 62.5 fl (35.1-43.9); Red Blood Count 2.31 M/mm3 (4.2-5.4); White Blood Count 11.6 K/mm3 (4.4-11.0)
[2022-05-29 17:10] LABS: POSITIVE COUNT NO; POSITIVE DIFFERENTIAL NO; POSITIVE MORPHOLOGY NO; Scan Indicated on CBC? Y/N NO
[2022-05-29 17:36] LABS: Anion Gap 8 (5-15); BUN 27 mg/dL (7-18); BUN/Creat Ratio 18.5 RATIO (10-20); Calcium,Total 7.1 mg/dL (8.5-10.1); Chloride 113 mmol/L (98-107); Creatinine, Serum 1.46 mg/dL (0.55-1.02); EST Glomerular Filtration Rate 37 mL/min (>60); Est Glom Filt Rate - Afr Amer 45 mL/min (>60); Estimated Creatinine Clearance 26.28 ml/min; Glucose 251 mg/dL (74-106); Sodium Level 138 mmol/L (136-145); Troponin-I HS 9 pg/mL (3.0-54.0)
[2022-05-29] MEDS: 0.45% Normal Saline 1,000 ML 125 ML IV ×2 (19:00→23:19)
[2022-05-29] MEDS: Calcium Gluconate IV 3 GM in Syringe 1 EACH IV (20:56)
[2022-05-29] MEDS: Dextrose 50%-Water 25 GM/50 ML DISP.SYRIN IV (20:56)
[2022-05-29] MEDS: Sodium Polystyrene Sulfonate 15 GM/60 ML UDC RC (20:56)
[2022-05-29] MEDS: Insulin Lispro 10 UNIT in Syringe 0 ML 6 UNIT IV (20:56)
[2022-05-29 21:20] LABS: Bedside Glucose 212 mg/dL (74-106)
[2022-05-29 21:37] LABS: Absolute Lymphocyte Count 0.64 X10^3/uL (0.83-4.51); Absolute Neutrophil Count 16.4 X10^3/uL (2.0-7.7); Basophil# 0.04 X10^3/uL; Basophil% 0.2 % (0-1); Eosinophil# 0.01 X10^3/uL; Eosinophils% 0.1 % (0-5); Hematocrit 28.4 % (37-47); Hemoglobin 9.4 g/dL (12.0-15.0); Lymphocyte # 0.64 X10^3/ul (0.83-4.51); Lymphocyte % 3.5 % (19-41); Mean Corp Hgb Conc 33.1 g/dL (32-36); Mean Corpuscular Volume 96.6 fL (81-99); Mean Platelet Vol. 9.7 fl (6.2-12.0); Monocyte% 3.9 % (0-10); NRBC Flagged by Analyzer 2.2 % (0-5); Neutrophil # 16.35 X10^3/uL (2.7-7.7); Neutrophil % 89.9 % (47-70); Platelet Count 147 K/mm3 (150-450); RBC Distribution Width CV 17.2 % (11.6-14.6); RBC Distribution Width SD 58.9 fl (35.1-43.9); Red Blood Count 2.94 M/mm3 (4.2-5.4); White Blood Count 18.2 K/mm3 (4.4-11.0)
[2022-05-29 21:59] LABS: Reflex Lactate? Y
[2022-05-29 22:13] LABS: Anion Gap 8 (5-15); BUN 34 mg/dL (7-18); BUN/Creat Ratio 20.7 RATIO (10-20); Calcium,Total 7.2 mg/dL (8.5-10.1); Chloride 113 mmol/L (98-107); Creatinine, Serum 1.64 mg/dL (0.55-1.02); EST Glomerular Filtration Rate 33 mL/min (>60); Est Glom Filt Rate - Afr Amer 40 mL/min (>60); Glucose 246 mg/dL (74-106); Potassium 6.5 mmol/L (3.5-5.1); Sodium Level 139 mmol/L (136-145)
[2022-05-29] MEDS: 0.9% Saline Lock 10 ML Syringe IV (23:06)
[2022-05-29] MEDS: Pravastatin 20 MG Tablet 10 MG PO (23:14)
[2022-05-29] MEDS: Latanoprost 0.005% 1 Bottle 1 DRP EACH EYE (23:15)
[2022-05-29 23:27] LABS: Lactic Acid 3.6 mmol/L (0.4-1.9)
[2022-05-30] VITALS (62 sets, daily range): BP systolic 87–139; BP diastolic 36–65; PULSE 100–132; RESP 12–26; TEMP 36–36.8; O2SAT 92–98
[2022-05-30 04:18] LABS: Absolute Lymphocyte Count 0.72 X10^3/uL (0.83-4.51); Absolute Neutrophil Count 16.8 X10^3/uL (2.0-7.7); Basophil# 0.03 X10^3/uL; Basophil% 0.2 % (0-1); Hemoglobin 8.6 g/dL (12.0-15.0); Lymphocyte # 0.72 X10^3/ul (0.83-4.51); Mean Corp Hgb Conc 33.1 g/dL (32-36); Mean Corpuscular Hgb 31.4 pg (27.0-32.0); Mean Corpuscular Volume 94.9 fL (81-99); Monocyte# 0.44 X10^3/uL; Monocyte% 2.4 % (0-10); NRBC Flagged by Analyzer 1.7 % (0-5); Neutrophil # 16.79 X10^3/uL (2.7-7.7); Neutrophil % 92.2 % (47-70); Platelet Count 171 K/mm3 (150-450); RBC Distribution Width CV 17.4 % (11.6-14.6); RBC Distribution Width SD 58.1 fl (35.1-43.9); Red Blood Count 2.74 M/mm3 (4.2-5.4); White Blood Count 18.2 K/mm3 (4.4-11.0)
[2022-05-30 04:36] LABS: Anion Gap 8 (5-15); BUN 36 mg/dL (7-18); BUN/Creat Ratio 21.8 RATIO (10-20); Calcium,Total 7.5 mg/dL (8.5-10.1); Chloride 111 mmol/L (98-107); Creatinine, Serum 1.65 mg/dL (0.55-1.02); EST Glomerular Filtration Rate 32 mL/min (>60); Est Glom Filt Rate - Afr Amer 39 mL/min (>60); Estimated Creatinine Clearance 23.26 ml/min; Glucose 287 mg/dL (74-106); Potassium 5.4 mmol/L (3.5-5.1); Sodium Level 138 mmol/L (136-145)
[2022-05-30] MEDS: 0.9% Saline Lock 10 ML Syringe IV (05:49)
[2022-05-30] MEDS: Insulin Lispro 100 UNIT/ML INSULN.PEN SC ×4 (05:50→22:47)
--- NOTE | 2022-05-30 06:05 | CON.PCM.CC_ITS ---
Assessment & Plan Assessment/Plan (1) Shock: PLAN: Plan RECOMMENDATIONS: 1. Continue vasopressor support to maintain a mean arterial pressure at or above 65 mmHg. 2. Obtain and send blood and urine cultures. 3. Check MRSA screen. If positive, initiate vancomycin. 4. Continue to monitor H&H. Transfuse if hemoglobin drops below 7 g/dL. 5. Start PPI therapy twice daily. 6. Continue to hold Eliquis and home antihypertensives. 7. Obtain plain film chest x-ray. 8. Wean supplemental oxygen as tolerated. Encourage incentive spirometer use. IMPRESSIONS: 1. Undifferentiated shock Potential etiologies include septic, hemorrhagic or postanesthesia shock. The patient has a recent complex medical history including lumbar spine discitis/osteomyelitis, for which the patient deferred undergoing surgery. She was discharged recently from [facility] on May 22 with a PICC line, with tentative plans for prolonged IV antibiotics. Accordingly, the patient's lumbar spine and indwelling vascular catheter potential sources of infection. The patient did receive multiple units of packed red blood cells per ioperatively due to anemia and intraoperative blood loss. At this particular time, I am going to plan to obtain blood and urine cultures. The patient will be continued on ertapenem for now. Will check MRSA screen, and if positive, the patient will need to be started on vancomycin. In the interim, plan to continue vasopressor support to maintain a mean arterial pressure at or above 65 mmHg. Given that the patient has underlying atrial fibrillation with a heart rate that is likely being exacerbated by the Levophed, will add vasopressin in hopes of decreasing her Levophed requirement. 2. Left periprosthetic distal femur fracture now POD #1 status post surgical revision and replacement Continue routine postoperative care per orthopedic surgery recommendations. 3. Acute on chronic anemia The patient has been transfused 3 units of packed red blood cells today. There are no overt signs of GI blood loss. Plan to continue to monitor blood counts and transfuse if hemoglobin drops below 7 g/dL. Continue PPI therapy as ordered. 4. Atrial fibrillation with RVR Continue to hold home Eliquis for now. Initiate vasopressin in hopes of alleviating Levophed requirement that appears to be driving the patient's heart rate response. 5. Acute on chronic kidney disease This is most likely secondary to hemodynamic instability in the setting of #1. I do anticipate improvement with stabilization of hemodynamics. Continue to monitor urine output for now. No current indication for renal replacement therapy. 6. Obesity/diabetes mellitus/hypertension/hyperlipidemia/recent lumbar spine infection Complicates care, management, recovery and prognosis. Plan to continue antimicrobials per recent discharge instructions, including ertapenem to address her lumbar spine discitis. The patient may ultimately require reimaging of her lumbar spine, depending on her clinical course. Continue to hold home antihypertensives. TIME: 48 minutes of critical care time, independent of procedures, was spent addre ssing the patient's undifferentiated shock, distal femur fracture, acute on chronic anemia, atrial fibrillation, acute on chronic kidney disease, review of all data and collaboration with the care team. HPI Consult Data Date of Consult: 05/31/22 HPI Narrative Reason for Consultation: Questionable hemorrhagic shock HPI Narrative: The patient is a 71-year-old female, with a history as outlined below, who presented as a direct transfer from [facility] emergency department on May 28 after sustaining a mechanical fall which led to a left femur fracture. The patient has been residing at a [facility] facility to receive IV antibiotics for treatment of a spine infection. She has been receiving ertapenem. The patient has known history of atrial fibrillation, chronic kidney disease, obesity, anemia, diabetes mellitus and hyperlipidemia. According to documentation reviewed, the patient was admitted to [facility] on May 13 and discharged on May 21. During that hospitalization, the patient was noted to have a urinary tract infection and was started on antibiotics. Imaging of her lumbar spine demonstrated findings concerning for discitis with possible osteomyelitis. In addition, there was incidental note made of a potential renal mass. The patient was seen in consultation by neurosurgery. However, the patient did not opt for surgery. She had a biopsy of the L2/3 disc by interventional radiology. Cultures were apparently negative. The patient was seen in consultation by infectious diseases, who recommended long-term IV antibiotics after discharge. During that hospitalization, the patient developed atrial fibrillation with RVR. She was started on Cardizem, metoprolol and Eliquis. 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 Surface echocardiogram completed on May 28 demonstrated normal LV size and function with an ejection fraction of 65%. Pulmonary artery systolic pressure was estimated to be 65 mmHg. On May 29, the patient was taken to the OR where she underwent a revision of her left total knee replacement and distal femoral replacement. Intraoperative blood loss was estimated at 700 mL. The patient received 600 mL of crystalloid fluid and 1 unit of packed red blood cells during the procedure. Postoperatively, while in the PACU recovering, she was noted to be significantly hypotensive. She was started on [place]-Synephrine by anesthesia. Due to her vasopressor requirement, she was transferred to the medical intensive care unit for further management. On my review, the patient's lowest hemoglobin documented was 7.2 g/dL on May 29. She has received 3 units of packed red blood cells to date. The patient remains on Levophed at 20 mcg/min to maintain hemodynamic stability. She is doing well from a respiratory perspective on 1 L/min via nasal cannula. Her white count is elevated at 18,000. Chemistry profile was notable for acute on chronic kidney disease with decreasing urine output overnight. Potassium is elevated at 5.4. Her last lactate was elevated at 3.6. She is currently documented to be overall net +3.5 L for the hospitalization. [facility] Medical History (Updated 05/30/22 @ 09:[address] Sierra House MD) Anemia Cancer Chronic back pain Chronic kidney disease, stage III (moderate) Essential (primary) hypertension High cholesterol Hyperkalemia Hyperlipidemia Osteoporosis Paroxysmal atrial fibrillation Post-menopausal Secondary pulmonary arterial hypertension Type II diabetes mellitus Home Medications aspirin 81 mg chewable tablet 81 mg PO DAILY@0800 03/04/16 [History Last Taken 03/03/16] calcium carbonate 500 mg-vitamin D3 5 mcg (200 unit) tablet 1 tab PO DAILY 03/04/16 [History Last Taken 03/03/16] gabapentin 100 mg capsule 100 mg PO TIDCM 03/04/16 [History Last Taken 03/03/16] insulin NPH isoph U-100 human 100 unit/mL (3 mL) subcutaneous pen 10 units subcut DINNER 03/04/16 [History Last Taken 03/03/16] pravastatin 20 mg tablet 10 mg PO QHS 04/11/20 [History Last Taken Unknown] acetaminophen 500 mg tablet 1,000 mg PO BID PRN Pain 05/28/22 [History Last Taken Unknown] apixaban 5 mg tablet (Eliquis) 5 mg PO BID 05/28/22 [History Last Taken Unknown] daptomycin 500 mg IV push QODAY 05/28/22 [History Last Taken Unknown] diltiazem HCl 360 mg capsule,extended release 24 hr 360 mg PO DAILY 05/28/22 [History Last Taken Unknown] ertapenem 1 gram solution for injection 0.5 g IV DAILY 05/28/22 [History Last Taken Unknown] hydrocodone-acetaminophen 5-325mg 5mg-325mg 1 tab PO Q8H PRN Pain 05/28/22 [History Last Taken Unknown] insulin NPH isoph U-100 human 100 unit/mL subcutaneous suspension (Humulin N NPH U-100 Insulin (isophane susp)) 20 unit subcut BREAKFAST 05/28/22 [History Last Taken Unknown] insulin lispro 100 unit/mL subcutaneous cartridge 5 unit subcut BREAKFAST 05/28/22 [History Last Taken Unknown] insulin lispro 100 unit/mL subcutaneous cartridge See Protocol subcut ACHS 05/28/22 [History Last Taken Unknown] latanoprost 0.005 % eye drops 1 drp EACH EYE QHS 05/28/22 [History Last Taken Unknown] losartan 25 mg PO/SL DAILY 05/28/22 [History Last Taken Unknown] metoprolol tartrate 50 mg tablet 50 mg PO Q8H 05/28/22 [History Last Taken Unknown] pantoprazole 40 mg tablet,delayed release (Protonix) 40 mg PO QHS 05/28/22 [History Last Taken Unknown] senna-docusate sodium tablet 1 tab PO BID PRN Constipation 05/28/22 [History Last Taken Unknown] Allergy/AdvReac Type Severity Reaction Status Date / Time amoxicillin [From Augmentin] Allergy PT UNSURE Verified 05/28/22 02:16 OF REACTION clavulanic acid Allergy PT UNSURE Verified 05/28/22 02:16 [From Augmentin] OF REACTION Penicillins Allergy Rash Verified 04/11/19 11:03 simvastatin [From Zocor] Allergy Rash Verified 04/11/19 11:03 lisinopril AdvReac Intermediate HYPERKALEMI Verified 04/11/19 11:03 A atorvastatin calcium AdvReac Pain in Verified 04/11/19 11:03 [From Lipitor] joints Family History Father Negative for ASCVD Mother Negative for ASCVD Surgical History (Updated 05/30/22 @ 10:08 by Bowen Janas PA, PA-C) History of knee replacement, total Hx of cataract surgery Social History Smoking Status: Never smoker ROS Constitutional Constitutional: Reports fatigue; Denies chills or fever(s) Eyes Eyes: Denies blurry vision or change in vision ENT HEENT: Denies dizziness, dysphagia, epistaxis or headache(s) Cardiovascular Cardiovascular: Denies dizziness, dyspnea or edema Respiratory/Chest Respiratory/Chest: Denies chest tightness, cough or dyspnea Gastrointestinal Gastrointestinal: Denies abdominal pain, nausea or vomiting Genitourinary Genitourinary: Denies difficulty urinating Musculoskeletal Musculoskeletal: Reports back pain and joint pain Integumentary Integumentary: Denies lesions, rash or skin ulcer Neurologic Neurologic: Denies abnormal speech or confusion Psychiatric Psychiatric: Denies anxiety or depression Endocrine Endocrinology: Reports fatigue Hematologic/Lymphatic Hematologic/Lymphatic: Denies easy bleeding or easy bruising Physical Exam Const alert and no apparent distress General Appearance: cooperative Nutritional Appearance: obese HEENT normocephalic and head/scalp atraumatic Eyes PERRL, EOMs intact bilaterally and conjunctivae normal Neck supple General: trachea midline Chest inspection of chest normal Resp normal respiratory effort Auscultation: Negative for rales, rhonchi or wheezes Cardio S1 normal heart sound and S2 normal heart sound Rate: tachycardic Rhythm: abnormal rhythm GI normal to inspection, nondistended, normoactive bowel sounds Extremity no clubbing, cyanosis or edema Skin no rashes or lesions noted Neuro CN's II-XII intact bilaterally and no focal motor deficits Psych cooperative and affect normal Lab / Micro Data Result Diagrams: 05/31/22 04:55 05/31/22 04:55 Labs: Laboratory Results - last 24 hr 05/28/22 13:20: Crossmatch See Detail 05/28/22 13:20: Crossmatch See Detail 05/28/22 13:20: Crossmatch See Detail 05/29/22 04:59: PT 17.5 H, INR 1.5, APTT 37.5 H 05/29/22 04:59: Hemoglobin A1c 6.9 H 05/29/22 04:59: Anisocytosis 2+, Macrocytosis 2+ 05/29/22 04:59: Sodium 140, Potassium 5.1, Chloride 111 H, Carbon Dioxide 23.0, Anion Gap 6, BUN 30 H, Creatinine 1.24 H, Estim Creat Clear Calc 30.95, Est GFR (MDRD) Af Amer 55 L, Est GFR (MDRD) Non-Af 45 L, BUN/Creatinine Ratio 24.2 H, Glucose 129 H, Calcium 8.2 L 05/29/22 06:07: POC Glucose 133 H 05/29/22 13:50: Hgb 7.8 L, Hct 24.3 L 05/29/22 15:29: POC Glucose 238 H 05/29/22 16:28: WBC 11.6 H, RBC 2.31 L, Hgb 7.2 L, Hct 22.8 L, MCV 98.7 D, MCH 31.2, MCHC 31.6 L, RDW Std Deviation 62.5 H, RDW Coeff of Sherif 17.8 H, Plt Count 168, MPV 9.4 05/29/22 16:28: Sodium 138, Potassium 7.0 H*, Chloride 113 H, Carbon Dioxide 17.0 L, Anion Gap 8, BUN 27 H, Creatinine 1.46 H, Estim Creat Clear Calc 26.28, Est GFR (MDRD) Af Amer 45 L, Est GFR (MDRD) Non-Af 37 L, BUN/Creatinine Ratio 18.5, Glucose 251 H, Calcium 7.1 L, Troponin I High Sens 9 05/29/22 17:45: Lactic Acid 5.0 H* 05/29/22 21:01: POC Glucose 212 H 05/29/22 21:15: WBC 18.2 H, RBC 2.94 L, Hgb 9.4 L, Hct 28.4 L, MCV 96.6, MCH 32.0, MCHC 33.1, RDW Std Deviation 58.9 H, RDW Coeff of Sherif 17.2 H, Plt Count 147 L, MPV 9.7, Immature Gran % (Auto) 2.400 H, Neut % (Auto) 89.9 H, Lymph % (Auto) 3.5 L, Cook % (Auto) 3.9, Eos % (Auto) 0.1, Baso % (Auto) 0.2, Absolute Neuts (auto) 16.4 H, Absolute Lymphs (auto) 0.64 L, Nucleated RBC % 2.2 05/29/22 21:15: Sodium 139, Potassium 6.5 H*, Chloride 113 H, Carbon Dioxide 18.0 L, Anion Gap 8, BUN 34 H, Creatinine 1.64 H, Estim Creat Clear Calc 23.40, Est GFR (MDRD) Af Amer 40 L, Est GFR (MDRD) Non-Af 33 L, BUN/Creatinine Ratio 20.7 H, Glucose 246 H, Calcium 7.2 L 05/29/22 22:35: Lactic Acid 3.6 H* 05/30/22 04:05: WBC 18.2 H, RBC 2.74 L, Hgb 8.6 L, Hct 26.0 L, MCV 94.9, MCH 31.4, MCHC 33.1, RDW Std Deviation 58.1 H, RDW Coeff of Sherif 17.4 H, Plt Count 171, MPV 10.0, Immature Gran % (Auto) 1.200 H, Neut % (Auto) 92.2 H, Lymph % (Auto) 4.0 L, Cook % (Auto) 2.4, Eos % (Auto) 0.0, Baso % (Auto) 0.2, Absolute Neuts (auto) 16.8 H, Absolute Lymphs (auto) 0.72 L, Nucleated RBC % 1.7 05/30/22 04:05: Sodium 138, Potassium 5.4 H, Chloride 111 H, Carbon Dioxide 19.0 L, Anion Gap 8, BUN 36 H, Creatinine 1.65 H, Estim Creat Clear Calc 23.26, Est GFR (MDRD) Af Amer 39 L, Est GFR (MDRD) Non-Af 32 L, BUN/Creatinine Ratio 21.8 H , Glucose 287 H, Calcium 7.5 L ABG Data ABG results: ABG 05/29/22 16:43 Specimen Type ART Sample Site Art Line pH 7.28 L Bicarbonate Actual 16.4 L Total CO2 17 Base Excess -10 L O2 Saturation 98 ABG pCO2 34.9 L ABG pO2 117 H Liter Flow 6.0 Radiology Impression Knee X-Ray 05/29/22 16:47 IMPRESSION: undefined Charges/Coding Procedures Hospitalists Procedures: [id number] Critial Care 1st Hr
--- NOTE | 2022-05-30 06:45 | RAD_ITS ---
STUDY: X-RAY CHEST REASON FOR EXAM: Female, 71 years old. Sepsis TECHNIQUE: Single AP portable view of the chest. COMPARISON: 05/25/2022 FINDINGS: Poor inspiration with some bibasilar atelectasis. There is no demonstrated pleural abnormality. There is moderate cardiac enlargement. Normal mediastinum and salomon. Normal visualized pulmonary arteries. Normal visualized aortic arch and descending thoracic aorta. Normal visualized thoracic spine. Normal visualized ribs, clavicles, and shoulders. There is no demonstrated abnormality of the visualized soft tissue structures of the upper abdomen. RAD/Chest 1 View (Portable) IMPRESSION: Poor inspiration with some bibasilar atelectasis. Electronically Signed: Leon Almanza MD at 9:08 EDT ,
[2022-05-30 08:34] LABS: Lactic Acid 1.6 mmol/L (0.4-1.9)
[2022-05-30 08:40] LABS: Procalcitonin 4.62 ng/mL (0.00-0.09)
[2022-05-30] MEDS: Nystatin Powder 15gm Bottle 1 APPLIC TOPICAL ×2 (08:53→21:22)
[2022-05-30] MEDS: Calcium Carb/Vitamin D 1 TABLET Tablet PO (08:53)
[2022-05-30] MEDS: Gabapentin 100 MG Capsule PO ×3 (08:53→16:56)
[2022-05-30] MEDS: Senna/Docusate Sodium 1 Tablet 2 TABLET PO ×2 (08:54→21:24)
--- NOTE | 2022-05-30 09:04 | CON.PCM.RE_ITS ---
Assessment & Plan Assessment/Plan (1) SRIDEVI (acute kidney injury): PLAN: SRIDEVI is likely due to prerenal azotemia due to decreased effective blood volume related to hypotension. Serum creatinine has increased to 1.65 mg/dL this morning. Prerenal SRIDEVI can also evolved to ischemic ATN in her case since she is still requiring IV vasopressor. Low suspicion for other causes of SRIDEVI. I will check urine indices. If renal function fails to stabilize or improve in the next 24 hours, I will check ultrasound of the kidneys. Low suspicion for obstructive uropathy at this point. There is no current need for kidney replacement therapy. She is not oliguric. Potassium level has improved, and she is not terribly acidotic. Continue to keep MAP above 65 mmHg with IV vasopressor. The patient does not appear to be volume overloaded, so I encourage her to push fluid. Current medications are reviewed and are appropriately dosed for her renal funct ion. (2) Chronic kidney disease, stage 3b: PLAN: Patient has underlying chronic kidney disease, likely due to diabetic kidney disease. Serum creatinine is around 1.4 mg/dL at baseline. [place] (3) Hyperkalemia: PLAN: Hyperkalemia was likely due to decreased perfusion to the kidney/SRIDEVI. The patient is also mildly acidotic which can contribute to hyperkalemia. She was treated with insulin/D50 and sodium polystyrene sulfonate. Potassium level is better today. We will continue to monitor potassium levels. There is no need for kidney replacement therapy at this point. (4) Essential (primary) hypertension: PLAN: The patient had been on antihypertensives as outpatient. She was not on CHAS inhibitor, ARB or aldosterone antagonist. Currently hypotensive on vasopressor agent. Therefore, antihypertensives are on hold. We will continue to watch her blood pressure. (5) Hypotension: PLAN: Etiology of hypotension is being investigated. Could be related to subacute/chronic osteomyelitis of the lumbar region versus new infection. She is requiring IV vasopressor as directed by the primary service. The patient is getting ertapenem the dose of which is adjusted for her renal function. HPI Consult Data Date of Consult: 05/30/22 HPI Narrative Reason for Consultation: SRIDEVI and hyperkalemia HPI Narrative: CHIQUIS STEVENS is a 71-year-old woman with past history of chronic kidney disease, hypertension, type 2 diabetes mellitus, paroxysmal atrial fibrillation, pulmonary hypertension, and hyperlipidemia. The patient presented to the hospital on 05/28/2022 after a fall resulting in left periprosthetic distal femur fracture. The patient is status post revision to left total knee replacement on 05/29/2022. Nephrology is asked to see the patient because of SRIDEVI. The patient has a history of underlying chronic kidney disease with serum creatinine of 1.2 to 1.4 mg/dL at baseline. She is followed by Dr. Perla for CKD as outpatient. Serum creatinine increased to 1.64 mg/dL postoperatively with potassium level of 7.0 mmol/L. The patient did become hypotensive after surgery on 05/29/2022. The patient is still requiring IV norepinephrine. The patient does have a history of lumbar discitis/osteomyelitis. She was on IV antibiotic prior to this admission via PICC. The patient was treated with temporizing measure and sodium polystyrene sulfonate for hyperkalemia. Potassium level is better today at 5.4 mmol/L. During this admission, the patient has not been on potassium supplementation or RAAS inhibitor. The patient denies current chest pain, shortness of breath, nausea, vomiting, or diarrhea. She denies edema of the lower extremities. There has been no lower urinary tract symptoms such as urinary frequency, urgency, hesitancy or incontinence. She has not been on NSAIDs during this admission. [facility] Medical History (Updated 05/30/22 @ 09:[address] Sierra House MD) Anemia Cancer Chronic back pain Chronic kidney disease, stage III (moderate) Essential (primary) hypertension High cholesterol Hyperkalemia Hyperlipidemia Osteoporosis Paroxysmal atrial fibrillation Post-menopausal Secondary pulmonary arterial hypertension Type II diabetes mellitus Home Medications aspirin 81 mg chewable tablet 81 mg PO DAILY@0800 03/04/16 [History Last Taken 03/03/16] calcium carbonate 500 mg-vitamin D3 5 mcg (200 unit) tablet 1 tab PO DAILY 03/04/16 [History Last Taken 03/03/16] gabapentin 100 mg capsule 100 mg PO TIDCM 03/04/16 [History Last Taken 03/03/16] insulin NPH isoph U-100 human 100 unit/mL (3 mL) subcutaneous pen 10 units ramachandran bcut DINNER 03/04/16 [History Last Taken 03/03/16] pravastatin 20 mg tablet 10 mg PO QHS 04/11/20 [History Last Taken Unknown] acetaminophen 500 mg tablet 1,000 mg PO BID PRN Pain 05/28/22 [History Last Taken Unknown] apixaban 5 mg tablet (Eliquis) 5 mg PO BID 05/28/22 [History Last Taken Unknown] daptomycin 500 mg IV push QODAY 05/28/22 [History Last Taken Unknown] diltiazem HCl 360 mg capsule,extended release 24 hr 360 mg PO DAILY 05/28/22 [History Last Taken Unknown] ertapenem 1 gram solution for injection 0.5 g IV DAILY 05/28/22 [History Last Taken Unknown] hydrocodone-acetaminophen 5-325mg 5mg-325mg 1 tab PO Q8H PRN Pain 05/28/22 [History Last Taken Unknown] insulin NPH isoph U-100 human 100 unit/mL subcutaneous suspension (Humulin N NPH U-100 Insulin (isophane susp)) 20 unit subcut BREAKFAST 05/28/22 [History Last Taken Unknown] insulin lispro 100 unit/mL subcutaneous cartridge 5 unit subcut BREAKFAST 05/28/22 [History Last Taken Unknown] insulin lispro 100 unit/mL subcutaneous cartridge See Protocol subcut ACHS 05/28/22 [History Last Taken Unknown] latanoprost 0.005 % eye drops 1 drp EACH EYE QHS 05/28/22 [History Last Taken Unknown] losartan 25 mg PO/SL DAILY 05/28/22 [History Last Taken Unknown] metoprolol tartrate 50 mg tablet 50 mg PO Q8H 05/28/22 [History Last Taken U nknown] pantoprazole 40 mg tablet,delayed release (Protonix) 40 mg PO QHS 05/28/22 [History Last Taken Unknown] senna-docusate sodium tablet 1 tab PO BID PRN Constipation 05/28/22 [History Last Taken Unknown] Allergy/AdvReac Type Severity Reaction Status Date / Time amoxicillin [From Augmentin] Allergy PT UNSURE Verified 05/28/22 02:16 OF REACTION clavulanic acid Allergy PT UNSURE Verified 05/28/22 02:16 [From Augmentin] OF REACTION Penicillins Allergy Rash Verified 04/11/19 11:03 simvastatin [From Zocor] Allergy Rash Verified 04/11/19 11:03 lisinopril AdvReac Intermediate HYPERKALEMI Verified 04/11/19 11:03 A atorvastatin calcium AdvReac Pain in Verified 04/11/19 11:03 [From Lipitor] joints Family History Father Negative for ASCVD Mother Negative for ASCVD Surgical History History of knee replacement, total Hx of cataract surgery Social History Smoking Status: Never smoker ROS ROS Narrative 07/27 ROS was done. It is otherwise noncontributory aside from what is documented in HPI. Physical Exam Narrative General: Alert and oriented x3 in no apparent distress. HEENT: Normocephalic, atraumatic. Mucous membrane moist without erythema. PERRLA, EOMI. Hearing is intact. Neck: Supple, no JVD. Heart: Normal S1, S2. No rubs, murmurs or gallops. Lungs: Clear to auscultation bilaterally. Abdomen: Obese, normal bowel sound. Abdomen is soft, nontender, no guarding or rebound. Extremities: No clubbing, cyanosis, or edema. Musculoskeletal: Full passive range of motion. Skin: Warm and dry. No rash. Psychiatric: Normal mood and affect. Lab / Micro Data Result Diagrams: 05/30/22 04:05 05/30/22 04:05 Labs: Laboratory Results - last 24 hr 05/28/22 13:20: Crossmatch See Detail 05/28/22 13:20: Crossmatch See Detail 05/28/22 13:20: Crossmatch See Detail 05/29/22 13:50: Hgb 7.8 L, Hct 24.3 L 05/29/22 15:29: POC Glucose 238 H 05/29/22 16:28: WBC 11.6 H, RBC 2.31 L, Hgb 7.2 L, Hct 22.8 L, MCV 98.7 D, MCH 31.2, MCHC 31.6 L, RDW Std Deviation 62.5 H, RDW Coeff of Sherif 17.8 H, Plt Count 168, MPV 9.4 05/29/22 16:28: Sodium 138, Potassium 7.0 H*, Chloride 113 H, Carbon Dioxide 17.0 L, Anion Gap 8, BUN 27 H, Creatinine 1.46 H, Estim Creat Clear Calc 26.28, Est GFR (MDRD) Af Amer 45 L, Est GFR (MDRD) Non-Af 37 L, BUN/Creatinine Ratio 18.5, Glucose 251 H, Calcium 7.1 L, Troponin I High Sens 9 05/29/22 17:45: Lactic Acid 5.0 H* 05/29/22 21:01: POC Glucose 212 H 05/29/22 21:15: WBC 18.2 H, RBC 2.94 L, Hgb 9.4 L, Hct 28.4 L, MCV 96.6, MCH 32.0, MCHC 33.1, RDW Std Deviation 58.9 H, RDW Coeff of Sherif 17.2 H, Plt Count 147 L, MPV 9.7, Immature Gran % (Auto) 2.400 H, Neut % (Auto) 89.9 H, Lymph % (Auto) 3.5 L, [place] % (Auto) 3.9, Eos % (Auto) 0.1, Baso % (Auto) 0.2, Absolute Neuts (auto) 16.4 H, Absolute Lymphs (auto) 0.64 L, Nucleated RBC % 2.2 05/29/22 21:15: Sodium 139, Potassium 6.5 H*, Chloride 113 H, Carbon Dioxide 18.0 L, Anion Gap 8, BUN 34 H, Creatinine 1.64 H, Estim Creat Clear Calc 23.40, Est GFR (MDRD) Af Amer 40 L, Est GFR (MDRD) Non-Af 33 L, BUN/Creatinine Ratio 20.7 H, Glucose 246 H, Calcium 7.2 L 05/29/22 22:35: Lactic Acid 3.6 H* 05/30/22 04:05: WBC 18.2 H, RBC 2.74 L, Hgb 8.6 L, Hct 26.0 L, MCV 94.9, MCH 31.4, MCHC 33.1, RDW Std Deviation 58.1 H, RDW Coeff of Sherif 17.4 H, Plt Count 171, MPV 10.0, Immature Gran % (Auto) 1.200 H, Neut % (Auto) 92.2 H, Lymph % (Auto) 4.0 L, [place] % (Auto) 2.4, Eos % (Auto) 0.0, Baso % (Auto) 0.2, Absolute Neuts (auto) 16.8 H, Absolute Lymphs (auto) 0.72 L, Nucleated RBC % 1.7 05/30/22 04:05: Sodium 138, Potassium 5.4 H, Chloride 111 H, Carbon Dioxide 19.0 L, Anion Gap 8, BUN 36 H, Creatinine 1.65 H, Estim Creat Clear Calc 23.26, Est GFR (MDRD) Af Amer 39 L, Est GFR (MDRD) Non-Af 32 L, BUN/Creatinine Ratio 21.8 H , Glucose 287 H, Calcium 7.5 L 05/30/22 07:40: Procalcitonin 4.62 H 05/30/22 07:40: Lactic Acid 1.6 ABG Data ABG results: ABG 05/29/22 16:43 Specimen Type ART Sample Site Art Line pH 7.28 L Bicarbonate Actual 16.4 L Total CO2 17 Base Excess -10 L O2 Saturation 98 ABG pCO2 34.9 L ABG pO2 117 H Liter Flow 6.0 Radiology Impression Knee X-Ray 05/29/22 16:47 IMPRESSION: undefined
[2022-05-30 09:16] LABS: Bedside Glucose 273 mg/dL (74-106)
--- NOTE | 2022-05-30 09:55 | PN.HOSP_ITS ---
Subjective Subjective Patient seen and examined. She is more alert today and has no active complaints. Her family was by her bedside. She is still requiring levophed and vasopressin to maintain her blood pressure. She denies any chest pain, palpitations, dizziness, uncontrolled pain, nausea, vomiting or diarrhea. Review of systems is otherwise negative. Objective Data Objective Data Vital Signs: Vital Signs Temp Pulse Resp BP Pulse Ox O2 Del Method O2 Flow Rate 98 F 124 H 18 106/46 L 96 Nasal Cannula 1 05/30/22 00:00 05/30/22 07:00 05/30/22 07:00 05/30/22 07:00 05/30/22 07:00 05/30/22 07:00 05/30/22 07:00 Oxygen Flow Rate (L/min) 1 Oxygen Delivery Method Nasal Cannula Weight: 216 lb 0.848 oz Body Mass Index (BMI) 38.2 Intake & Output: Intake and Output for Last 24 Hours 05/28/22 05/29/22 05/30/22 23:59 23:59 23:59 Intake Total 2120.75 / 2120.75 3863.12 / 3867.82 1260.58 / 1260.58 Output Total 1125 / 1125 1425 / 1425 100 / 100 Balance 995.75 / 995.75 2438.12 / 2442.82 1160.58 / 1160.58 Lab / Micro Data Result Diagrams: 05/30/22 04:05 05/30/22 04:05 Labs: Laboratory Results - last 24 hr 05/28/22 13:20: Crossmatch See Detail 05/28/22 13:20: Crossmatch See Detail 05/28/22 13:20: Crossmatch See Detail 05/29/22 13:50: Hgb 7.8 L, Hct 24.3 L 05/29/22 15:29: POC Glucose 238 H 05/29/22 16:28: WBC 11.6 H, RBC 2.31 L, Hgb 7.2 L, Hct 22.8 L, MCV 98.7 D, MCH 31.2, MCHC 31.6 L, RDW Std Deviation 62.5 H, RDW Coeff of Sherif 17.8 H, Plt Count 168, MPV 9.4 05/29/22 16:28: Sodium 138, Potassium 7.0 H*, Chloride 113 H, Carbon Dioxide 17.0 L, Anion Gap 8, BUN 27 H, Creatinine 1.46 H, Estim Creat Clear Calc 26.28, Est GFR (MDRD) Af Amer 45 L, Est GFR (MDRD) Non-Af 37 L, BUN/Creatinine Ratio 18.5, Glucose 251 H, Calcium 7.1 L, Troponin I High Sens 9 05/29/22 17:45: Lactic Acid 5.0 H* 05/29/22 21:01: POC Glucose 212 H 05/29/22 21:15: WBC 18.2 H, RBC 2.94 L, Hgb 9.4 L, Hct 28.4 L, MCV 96.6, MCH 32.0, MCHC 33.1, RDW Std Deviation 58.9 H, RDW Coeff of Sherif 17.2 H, Plt Count 147 L, MPV 9.7, Immature Gran % (Auto) 2.400 H, Neut % (Auto) 89.9 H, Lymph % (Auto) 3.5 L, [place] % (Auto) 3.9, Eos % (Auto) 0.1, Baso % (Auto) 0.2, Absolute Neuts (auto) 16.4 H, Absolute Lymphs (auto) 0.64 L, Nucleated RBC % 2.2 05/29/22 21:15: Sodium 139, Potassium 6.5 H*, Chloride 113 H, Carbon Dioxide 18.0 L, Anion Gap 8, BUN 34 H, Creatinine 1.64 H, Estim Creat Clear Calc 23.40, Est GFR (MDRD) Af Amer 40 L, Est GFR (MDRD) Non-Af 33 L, BUN/Creatinine Ratio 20.7 H, Glucose 246 H, Calcium 7.2 L 05/29/22 22:35: Lactic Acid 3.6 H* 05/30/22 04:05: WBC 18.2 H, RBC 2.74 L, Hgb 8.6 L, Hct 26.0 L, MCV 94.9, MCH 31.4, MCHC 33.1, RDW Std Deviation 58.1 H, RDW Coeff of Sherif 17.4 H, Plt Count 171, MPV 10.0, Immature Gran % (Auto) 1.200 H, Neut % (Auto) 92.2 H, Lymph % (Auto) 4.0 L, [place] % (Auto) 2.4, Eos % (Auto) 0.0, Baso % (Auto) 0.2, Absolute Neuts (auto) 16.8 H, Absolute Lymphs (auto) 0.72 L, Nucleated RBC % 1.7 05/30/22 04:05: Sodium 138, Potassium 5.4 H, Chloride 111 H, Carbon Dioxide 19.0 L, Anion Gap 8, BUN 36 H, Creatinine 1.65 H, Estim Creat Clear Calc 23.26, Est GFR (MDRD) Af Amer 39 L, Est GFR (MDRD) Non-Af 32 L, BUN/Creatinine Ratio 21.8 H , Glucose 287 H, Calcium 7.5 L 05/30/22 07:40: Procalcitonin 4.62 H 05/30/22 07:40: Lactic Acid 1.6 05/30/22 08:50: POC Glucose 273 H ABG Data ABG results: ABG 05/29/22 16:43 Specimen Type ART Sample Site Art Line pH 7.28 L Bicarbonate Actual 16.4 L Total CO2 17 Base Excess -10 L O2 Saturation 98 ABG pCO2 34.9 L ABG pO2 117 H Liter Flow 6.0 Radiography Diagnostic Testing: Radiology Impression Knee X-Ray 05/29/22 16:47 IMPRESSION: undefined Chest X-Ray 05/30/22 06:45 IMPRESSION: Poor inspiration with some bibasilar atelectasis. Electronically Signed: Leon Almanza MD at 9:08 EDT , Physical Exam Const alert, oriented x3 and no apparent distress Constitutional Narrative: looks pale HEENT head/scalp atraumatic, moist oral mucous membranes and oropharynx normal Head and Scalp: normocephalic Mouth: oral and palatal mucosa normal Eyes PERRL, EOMs intact bilaterally and conjunctivae normal Neck no lymphadenopathy and supple Resp normal respiratory effort, no retractions, no use of accessory muscles and clear to auscultation bilaterally Resp Narrative: on 1L of oxygen Cardio regular rhythm, S1 normal heart sound, S2 normal heart sound and no murmurs Cardio Narrative: tachycardic GI normal to inspection, nondistended, normoactive bowel sounds, soft to palpation, non-tender and non-distended Extremity Extremity Narrative: left knee wrapped in bandage Neuro oriented x3 and CN's II-XII intact bilaterally Sensorium / Orientation: awake and alert Psych affect normal Assessment & Plan Assessment/Plan (1) Closed fracture of left distal femur: PLAN: Plan #Hemorrhagic shock * likely due to blood loss from surgery * has been transfused a total of 2 units since surgery; was transfused with 2 units prior to surgery * on levophed and vasopressin to maintain her BP. * critical care on board. * titrate vasopressors to maintain MAP >65 * Hb today: #Left distal femoral fracture due to mechanical fall * today is POD 1 of revision of left total knee replacement to hinged prosthesis * orthopedic surgery on board * eliquis on hold * PT/OT on board * fall precautions * continue current pain meds * #Anemia * appears to be an iron deficiency anemia and complicated by blood loss from surgery * has been transfused a total of 4 units of PRBCs * Iron panel showed low iron level of 13 with TIBC of 275 and iron saturation of only 10.9 with ferritin only mildly elevated at 266. * vitamin B12 is WNL. rbc folate is pending * on PO pantoprazole 40mg daily; switch to PPI twice daily * in light of iron deficiency anemia, will consult GI for evaluation, especially as decision will have to be made about whether to continue blood thinners or otherwise. * #Leucocytosis * wbc is up to 18 today. may be reactive, from surgery * blood cultures ordered/ * #Hyperkalemia: K is 5.4. WIll give kayexalate and monitor #Non anion gap metabolic acidosis * likely due to lactic acidosis from hemorrhagic shock * bicarb is up to 19 today, from 16. * will monitor * #Lactic acidosis: * Lactic acid was up to 5 after surgery and this was likely due to shock from blood loss. * Lactic acid came down to 3.5. * Should improve as blood pressure improves. * #SRIDEVI * Creatinine is up to 1.65 from 1.24 from yesterday morning. * likely due to hemorrhagic shock. Should improve as shock resolves. 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 #Paroxysmal A. fib: Eliquis on hold. On Cardizem and metoprolol. #Hypertension: on metoprolol #Type 2 diabetes mellitus; on NPH insulin 10 units qhs and 20 units qam. Insulin sliding scale. Accu-Cheks ACH S. A1C is 6.9 #Dyslipidemia: On statin #CKD stage IIIb: Creatinine is 1.24 today. Previous labs from 2018 showed creatinine of 1.26. Will monitor. DVT prophylaxis: SCDs Charges/Coding Visit Charges Inpatient E&M: 11769 Subs Hosp L3
[2022-05-30 10:04] LABS: Mucous, Urine 0 SEEN /hpf (<or=2+)
--- NOTE | 2022-05-30 10:04 | PN.ORTHO_ITS ---
Subjective Subjective Patient sitting up in bed with family at her side. Patient states pain is been very well managed. Patient is anxious to have the opportunity to get up and walk. Patient denies chest pain, shortness of breath, calf pain, nausea vomiting. No other complaints at this time Objective Data Objective Data Vital Signs: Vital Signs Temp Pulse Resp BP Pulse Ox O2 Del Method O2 Flow Rate 98 F 124 H 18 106/46 L 96 Nasal Cannula 1 05/30/22 00:00 05/30/22 07:00 05/30/22 07:00 05/30/22 07:00 05/30/22 07:00 05/30/22 07:00 05/30/22 07:00 Oxygen Flow Rate (L/min) 1 Oxygen Delivery Method Nasal Cannula Weight: 98 kg Body Mass Index (BMI) 38.2 Intake & Output: Intake and Output for Last 24 Hours 05/28/22 05/29/22 05/30/22 23:59 23:59 23:59 Intake Total 2120.75 / 2120.75 3863.12 / 3867.82 1260.58 / 1260.58 Output Total 1125 / 1125 1425 / 1425 100 / 100 Balance 995.75 / 995.75 2438.12 / 2442.82 1160.58 / 1160.58 Lab / Micro Data Result Diagrams: 05/30/22 04:05 05/30/22 04:05 Labs: Laboratory Results - last 24 hr 05/28/22 13:20: Crossmatch See Detail 05/28/22 13:20: Crossmatch See Detail 05/28/22 13:20: Crossmatch See Detail 05/29/22 13:50: Hgb 7.8 L, Hct 24.3 L 05/29/22 15:29: POC Glucose 238 H 05/29/22 16:28: WBC 11.6 H, RBC 2.31 L, Hgb 7.2 L, Hct 22.8 L, MCV 98.7 D, MCH 31.2, MCHC 31.6 L, RDW Std Deviation 62.5 H, RDW Coeff of Sherif 17.8 H, Plt Count 168, MPV 9.4 05/29/22 16:28: Sodium 138, Potassium 7.0 H*, Chloride 113 H, Carbon Dioxide 17.0 L, Anion Gap 8, BUN 27 H, Creatinine 1.46 H, Estim Creat Clear Calc 26.28, Est GFR (MDRD) Af Amer 45 L, Est GFR (MDRD) Non-Af 37 L, BUN/Creatinine Ratio 18.5, Glucose 251 H, Calcium 7.1 L, Troponin I High Sens 9 05/29/22 17:45: Lactic Acid 5.0 H* 05/29/22 21:01: POC Glucose 212 H 05/29/22 21:15: WBC 18.2 H, RBC 2.94 L, Hgb 9.4 L, Hct 28.4 L, MCV 96.6, MCH 32.0, MCHC 33.1, RDW Std Deviation 58.9 H, RDW Coeff of Sherif 17.2 H, Plt Count 147 L, MPV 9.7, Immature Gran % (Auto) 2.400 H, Neut % (Auto) 89.9 H, Lymph % (Auto) 3.5 L, [place] % (Auto) 3.9, Eos % (Auto) 0.1, Baso % (Auto) 0.2, Absolute Neuts (auto) 16.4 H, Absolute Lymphs (auto) 0.64 L, Nucleated RBC % 2.2 05/29/22 21:15: Sodium 139, Potassium 6.5 H*, Chloride 113 H, Carbon Dioxide 18.0 L, Anion Gap 8, BUN 34 H, Creatinine 1.64 H, Estim Creat Clear Calc 23.40, Est GFR (MDRD) Af Amer 40 L, Est GFR (MDRD) Non-Af 33 L, BUN/Creatinine Ratio 20.7 H, Glucose 246 H, Calcium 7.2 L 05/29/22 22:35: Lactic Acid 3.6 H* 05/30/22 04:05: WBC 18.2 H, RBC 2.74 L, Hgb 8.6 L, Hct 26.0 L, MCV 94.9, MCH 31.4, MCHC 33.1, RDW Std Deviation 58.1 H, RDW Coeff of Sherif 17.4 H, Plt Count 171, MPV 10.0, Immature Gran % (Auto) 1.200 H, Neut % (Auto) 92.2 H, Lymph % (Auto) 4.0 L, [place] % (Auto) 2.4, Eos % (Auto) 0.0, Baso % (Auto) 0.2, Absolute Neuts (auto) 16.8 H, Absolute Lymphs (auto) 0.72 L, Nucleated RBC % 1.7 05/30/22 04:05: Sodium 138, Potassium 5.4 H, Chloride 111 H, Carbon Dioxide 19.0 L, Anion Gap 8, BUN 36 H, Creatinine 1.65 H, Estim Creat Clear Calc 23.26, Est G FR (MDRD) Af Amer 39 L, Est GFR (MDRD) Non-Af 32 L, BUN/Creatinine Ratio 21.8 H, Glucose 287 H, Calcium 7.5 L 05/30/22 07:40: Procalcitonin 4.62 H 05/30/22 07:40: Lactic Acid 1.6 05/30/22 08:50: POC Glucose 273 H ABG Data ABG results: ABG 05/29/22 16:43 Specimen Type ART Sample Site Art Line pH 7.28 L Bicarbonate Actual 16.4 L Total CO2 17 Base Excess -10 L O2 Saturation 98 ABG pCO2 34.9 L ABG pO2 117 H Liter Flow 6.0 Radiography Diagnostic Testing: Radiology Impression Knee X-Ray 05/29/22 16:47 IMPRESSION: undefined Chest X-Ray 05/30/22 06:45 IMPRESSION: Poor inspiration with some bibasilar atelectasis. Electronically Signed: Leon Almanza MD at 9:08 EDT , Physical Exam Narrative Upon exam patient sitting comfortably up in bed. She has no respiratory distress speaking in full sentences. Patient has good range of motion of the upper extremities with good muscle tone and strength. Exam of the left knee the dressing is intact, there is old blood in the dressing, no active bleeding at this time. Patient has no calf tenderness. Patient has good plantar flexion dorsiflexion of the left foot. She has a strong posterior tibial pulse. No paracentesis of lower extremities. Const alert and oriented x3 General Appearance: cooperative HEENT normocephalic Eyes PERRL Resp normal respiratory effort Effort and Inspection: able to speak in complete sentences Neuro CN's II-XII intact bilaterally Psych mental status grossly normal and affect normal Assessment & Plan Assessment/Plan (1) Status post revision of total replacement of left knee: PLAN: 1. Continue all pain medications as prescribed 2. Resume preoperative Eliquis as directed by medicine for postop DVT prophylaxis 3. Encourage incentive spirometry 4. Ice and compression to left knee 5. Ambulate, weight-bear as tolerated with walker and assistance 6. Full range of motion of left knee as tolerated
[2022-05-30 10:06] LABS: Color, Urine Yellow (Yellow); Glucose, Dipstick 50 mg/dl (Normal); Ketone-Dipstick 5 mg/dl (Negative); Leukocyte Esterase-Dipstick 500 /ul (Negative); Nitrite-Dipstick Negative (Negative); Occult Blood-Urine 50 /ul (Negative); Protein-Dipstick 100 mg/dl (Negative); Specific Gravity, Urine 1.025 (1.002-1.030); Urine Bilirubin Dipstick Negative (Negative); Urine Clarity Sl. Cloudy (Clear); Urine Urobilinogen Normal (Normal)
[2022-05-30 10:14] LABS: Red Blood Cells-Urine 10-25 SEEN /hpf (0-5)
[2022-05-30 10:15] LABS: Bacteria 2+ /hpf (None Seen); Squamous Epithelial Cells - UA 0-5 SEEN /hpf (5-10); White Blood Cells 25-50 SEEN /hpf (0-5)
[2022-05-30 10:20] LABS: Urine Sodium 23 mmol/L (Not Establ.)
[2022-05-30 10:25] LABS: M R Staph aureus DNA By PCR Negative (Negative); Probe Check PASS; Specimen Processing Control PASS
[2022-05-30 11:05] LABS: Bedside Glucose 297 mg/dL (74-106)
[2022-05-30] MEDS: Acetaminophen 325 MG Tablet 650 MG PO ×2 (12:09→21:23)
[2022-05-30] MEDS: oxyCODONE 5 MG Tablet PO ×2 (12:09→21:24)
--- NOTE | 2022-05-30 15:02 | PCM.CONS.GEN ---
Assessment & Plan Assessment/Plan (1) Anemia: PLAN: She has a iron deficiency anemia and a normocytic anemia. Her normocytic anemia is likely secondary to anemia chronic disease secondary to CKD. Her iron deficiency anemia could be secondary to acute on chronic GI blood loss. She has received blood transfusions since being in the hospital. Her hemoglobin was 9.4 yesterday and today is 8.6. She remains on anticoagulation. I think that she would benefit at least from an upper endoscopy to see if there is any signs of peptic ulcer disease, angiodysplasia, telangiectasia or hemangiomas. We can look at the esophagus, stomach, proximal small bowel at the level of the jejunum and if that is negative she can get a colonoscopy and a capsule endoscopy. Continue PPI therapy. HPI Consult Data Date of Consult: 06/01/22 HPI Narrative Reason for Consultation: Iron deficiency anemia HPI Narrative: CHIQUIS STEVENS, is a 71 F who presents from an outside hospital. She was directly admitted [facility] ED as direct admit for fall with subsequent left femur fracture.? Patient had [place] TKR [place] [address] Niño.? On 05/27 morning, she felt like going to bathroom for voiding urine, walked few steps on walker and then lost balance and fell down.? She said she fell on the left knee and has bruise around the left knee.? She did not lose loss of consciousness but had severe pain 10/10 on distal thigh/around the knee area at that time.? Subsequently patient was taken to [facility] ED where they found left distal femur fracture above left knee prosthesis.? She underwent surgery and was discovered to have left periprosthetic distal femur fracture with minimal distal bone. She also underwent a revision left total knee replacement to hinged prosthesis/distal femoral replacement both components. Currently she is being seen by the hospitalist service, nephrology service and concert singer. She has been dealing with acute on chronic renal failure, possible sepsis along with metabolic acidosis. I been asked to see the patient due to iron deficiency anemia and the need for anticoagulation. She is on anticoagulation due to history of atrial fibrillation. She has a history of anemia and takes aspirin for CAD prophylaxis and Eliquis for atrial for relation improved for last this to prevent a thromboembolic event. She also has a history of gastroesophageal reflux disease and takes Protonix 40 mg at night. She is not receive any blood trend and prior to coming into the hospital. She currently is on ertapenem and daptomycin. She denies any chest pain or shortness of breath. She denies any nausea, vomiting or diarrhea. She denies any melanotic stools. All other 16 review of systems are negative except as pertinent positive mentioned HPI. [facility] Medical History (Updated 06/01/22 @ 11:[address] Jac Payan, DO) Anemia Cancer Chronic back pain Chronic kidney disease, stage III (moderate) Essential (primary) hypertension High cholesterol Hyperkalemia Hyperlipidemia Osteoporosis Paroxysmal atrial fibrillation Post-menopausal Secondary pulmonary arterial hypertension Type II diabetes mellitus Home Medications gabapentin 100 mg capsule 100 mg PO TIDCM 03/04/16 [History Last Taken 03/03/16] insulin NPH isoph U-100 human 100 unit/mL (3 mL) subcutaneous pen 10 units subcut DINNER 03/04/16 [History Last Taken 03/03/16] acetaminophen 500 mg tablet 1,000 mg PO BID PRN Pain 05/28/22 [History Last Taken Unknown] insulin NPH isoph U-100 human 100 unit/mL subcutaneous suspension (Humulin N NPH U-100 Insulin (isophane susp)) 20 unit subcut BREAKFAST 05/28/22 [History Last Taken Unknown] insulin lispro 100 unit/mL subcutaneous cartridge 5 unit subcut BREAKFAST 05/28/22 [History Last Taken Unknown] latanoprost 0.005 % eye drops 1 drp EACH EYE QHS 05/28/22 [History Last Taken Unknown] pantoprazole 40 mg tablet,delayed release (Protonix) 40 mg PO QHS 05/28/22 [History Last Taken Unknown] insulin lispro 100 unit/mL subcutaneous pen (Humalog KwikPen (U-100) Insulin) See Protocol subcut ACHS #15 mL 06/01/22 [Rx Last Taken Unknown] oxycodone 5 mg tablet 5 mg PO Q4H PRN PRN Pain Score 4-10 3 days #20 tabs 06/01/22 [Rx Last Taken Unknown] Allergy/AdvReac Type Severity Reaction Status Date / Time amoxicillin [From Augmentin] Allergy PT UNSURE Verified 05/28/22 02:16 OF REACTION clavulanic acid Allergy PT UNSURE Verified 05/28/22 02:16 [From Augmentin] OF REACTION Penicillins Allergy Rash Verified 04/11/19 11:03 simvastatin [From Zocor] Allergy Rash Verified 04/11/19 11:03 lisinopril AdvReac Intermediate HYPERKALEMI Verified 04/11/19 11:03 A atorvastatin calcium AdvReac Pain in Verified 04/11/19 11:03 [From Lipitor] joints Family History Father Negative for ASCVD Mother Negative for ASCVD Surgical History (Updated 05/30/22 @ 10:08 by Bowen CHOPRA PA-C) History of knee replacement, total Hx of cataract surgery Social History Smoking Status: Never smoker ROS ROS Narrative 07/27 ROS was done. It is otherwise noncontributory aside from what is documented in HPI. Physical Exam Narrative Upon exam patient sitting comfortably up in bed. She has no respiratory distress speaking in full sentences. Patient has good range of motion of the upper extremities with good muscle tone and strength. Exam of the left knee the dressing is intact, there is old blood in the dressing, no active bleeding at this time. Patient has no calf tenderness. Patient has good plantar flexion dorsiflexion of the left foot. She has a strong posterior tibial pulse. No paracentesis of lower extremities. Const alert and oriented x3 General Appearance: cooperative HEENT normocephalic Eyes PERRL Resp normal respiratory effort Effort and Inspection: able to speak in complete sentences Neuro CN's II-XII intact bilaterally Psych mental status grossly normal and affect normal Lab / Micro Data Result Diagrams: 06/01/22 04:00 06/01/22 04:00 Labs: Laboratory Results - last 24 hr 05/28/22 13:20: Crossmatch See Detail 05/28/22 13:20: Crossmatch See Detail 05/28/22 13:20: Crossmatch See Detail 05/29/22 15:29: POC Glucose 238 H 05/29/22 16:28: WBC 11.6 H, RBC 2.31 L, Hgb 7.2 L, Hct 22.8 L, MCV 98.7 D, MCH 31.2, MCHC 31.6 L, RDW Std Deviation 62.5 H, RDW Coeff of Sherif 17.8 H, Plt Count 168, MPV 9.4 05/29/22 16:28: Sodium 138, Potassium 7.0 H*, Chloride 113 H, Carbon Dioxide 17.0 L, Anion Gap 8, BUN 27 H, Creatinine 1.46 H, Estim Creat Clear Calc 26.28, Est GFR (MDRD) Af Amer 45 L, Est GFR (MDRD) Non-Af 37 L, BUN/Creatinine Ratio 18.5, Glucose 251 H, Calcium 7.1 L, Troponin I High Sens 9 05/29/22 17:45: Lactic Acid 5.0 H* 05/29/22 21:01: POC Glucose 212 H 05/29/22 21:15: WBC 18.2 H, RBC 2.94 L, Hgb 9.4 L, Hct 28.4 L, MCV 96.6, MCH 32.0, MCHC 33.1, RDW Std Deviation 58.9 H, RDW Coeff of Sherif 17.2 H, Plt Count 147 L, MPV 9.7, Immature Gran % (Auto) 2.400 H, Neut % (Auto) 89.9 H, Lymph % (Auto) 3.5 L, George % (Auto) 3.9, Eos % (Auto) 0.1, Baso % (Auto) 0.2, Absolute Neuts (auto) 16.4 H, Absolute Lymphs (auto) 0.64 L, Nucleated RBC % 2.2 05/29/22 21:15: Sodium 139, Potassium 6.5 H*, Chloride 113 H, Carbon Dioxide 18.0 L, Anion Gap 8, BUN 34 H, Creatinine 1.64 H, Estim Creat Clear Calc 23.40, Est GFR (MDRD) Af Amer 40 L, Est GFR (MDRD) Non-Af 33 L, BUN/Creatinine Ratio 20.7 H, Glucose 246 H, Calcium 7.2 L 05/29/22 22:35: Lactic Acid 3.6 H* 05/30/22 04:05: WBC 18.2 H, RBC 2.74 L, Hgb 8.6 L, Hct 26.0 L, MCV 94.9, MCH 31.4, MCHC 33.1, RDW Std Deviation 58.1 H, RDW Coeff of Sherif 17.4 H, Plt Count 171, MPV 10.0, Immature Gran % (Auto) 1.200 H, Neut % (Auto) 92.2 H, Lymph % (Auto) 4.0 L, George % (Auto) 2.4, Eos % (Auto) 0.0, Baso % (Auto) 0.2, Absolute Neuts (auto) 16.8 H, Absolute Lymphs (auto) 0.72 L, Nucleated RBC % 1.7 05/30/22 04:05: Sodium 138, Potassium 5.4 H, Chloride 111 H, Carbon Dioxide 19.0 L, Anion Gap 8, BUN 36 H, Creatinine 1.65 H, Estim Creat Clear Calc 23.26, Est GFR (MDRD) Af Amer 39 L, Est GFR (MDRD) Non-Af 32 L, BUN/Creatinine Ratio 21.8 H, Glucose 287 H, Calcium 7.5 L 05/30/22 07:40: Procalcitonin 4.62 H 05/30/22 07:40: Lactic Acid 1.6 05/30/22 08:45: MRSA (PCR) Negative 05/30/22 08:50: POC Glucose 273 H 05/30/22 09:40: Urine Color Yellow, Urine Clarity Sl. Cloudy, Urine pH 6.0, Ur Specific [place] 1.025, Urine Protein 100 H, Urine Glucose (UA) 50 H, Urine Ketones 5 H, Urine Occult Blood 50 H, Urine Nitrite Negative, Urine Bilirubin Negative, Urine Urobilinogen Normal, Ur Leukocyte Esterase 500 H, Urine RBC 10-25 SEEN, Urine WBC 25-50 SEEN, Ur Squamous Epith Cells 0-5 SEEN, Urine Bacteria 2+, Urine Mucus 0 SEEN 05/30/22 09:40: Ur Random Sodium 23, Urine Creatinine 98.80 05/30/22 10:43: POC Glucose 297 H Micro: Microbiology 05/29/22 Unknown Tissue - Tibial Membrane Gram Stain - Final 05/29/22 Unknown Tissue - Tibial Membrane Wound Culture - Preliminary No growth-Final to follow 05/29/22 Unknown Tissue - Femoral Membrane Gram Stain - Final 05/29/22 Unknown Tissue - Femoral Membrane Wound Culture - Preliminary No growth-Final to follow 05/29/22 Unknown Tissue - Suprapatellar Pouch Gram Stain - Final 05/29/22 Unknown Tissue - Suprapatellar Pouch Wound Culture - Preliminary No growth-Final to follow ABG Data ABG results: ABG 05/29/22 16:43 Specimen Type ART Sample Site Art Line pH 7.28 L Bicarbonate Actual 16.4 L Total CO2 17 Base Excess -10 L O2 Saturation 98 ABG pCO2 34.9 L ABG pO2 117 H Liter Flow 6.0 Radiology Impression Knee X-Ray 05/29/22 16:47 IMPRESSION: undefined Chest X-Ray 05/30/22 06:45 IMPRESSION: Poor inspiration with some bibasilar atelectasis. Electronically Signed: Leon Almanza MD at 9:08 EDT , Charges/Coding Visit Charges Inpatient E&M: 48646 Init Hosp L2
[2022-05-30] MEDS: Insulin NPH Human 100 UNITS/ML PEN 10 UNITS SC (16:52)
[2022-05-30 17:20] LABS: Bedside Glucose 349 mg/dL (74-106)
[2022-05-30] MEDS: Bisacodyl 10 MG Suppository RC (21:21)
[2022-05-30] MEDS: Pravastatin 20 MG Tablet 10 MG PO (21:22)
[2022-05-30] MEDS: Latanoprost 0.005% 1 Bottle 1 DRP EACH EYE (21:23)
[2022-05-30] MEDS: TITRATION PARAMETER CHANGE 1 EACH IV (21:30)
[2022-05-30 22:01] LABS: Bedside Glucose 458 mg/dL (74-106)
[2022-05-30] MEDS: Insulin Lispro 100 UNIT/ML INSULN.PEN 7 UNIT SC (22:45)
[2022-05-31] VITALS (52 sets, daily range): BP systolic 93–153; BP diastolic 37–68; PULSE 108–174; RESP 15–26; TEMP 36.2–36.8; O2SAT 91–100
[2022-05-31 05:06] LABS: Absolute Lymphocyte Count 0.63 X10^3/uL (0.83-4.51); Basophil# 0.03 X10^3/uL; Basophil% 0.4 % (0-1); Eosinophil# 0.18 X10^3/uL; Eosinophils% 2.2 % (0-5); Hematocrit 22.3 % (37-47); Hemoglobin 7.3 g/dL (12.0-15.0); Lymphocyte # 0.63 X10^3/ul (0.83-4.51); Lymphocyte % 7.5 % (19-41); Mean Corp Hgb Conc 32.7 g/dL (32-36); Mean Corpuscular Hgb 31.5 pg (27.0-32.0); Mean Corpuscular Volume 96.1 fL (81-99); Mean Platelet Vol. 10.2 fl (6.2-12.0); Monocyte# 0.39 X10^3/uL; Monocyte% 4.7 % (0-10); Neutrophil # 6.99 X10^3/uL (2.7-7.7); Neutrophil % 83.6 % (47-70); Platelet Count 151 K/mm3 (150-450); RBC Distribution Width CV 17.3 % (11.6-14.6); RBC Distribution Width SD 56.8 fl (35.1-43.9); Red Blood Count 2.32 M/mm3 (4.2-5.4); White Blood Count 8.4 K/mm3 (4.4-11.0)
[2022-05-31 05:36] LABS: Anion Gap 5 (5-15); BUN 40 mg/dL (7-18); BUN/Creat Ratio 30.3 RATIO (10-20); Calcium,Total 7.4 mg/dL (8.5-10.1); Chloride 112 mmol/L (98-107); Creatinine, Serum 1.32 mg/dL (0.55-1.02); EST Glomerular Filtration Rate 42 mL/min (>60); Est Glom Filt Rate - Afr Amer 51 mL/min (>60); Estimated Creatinine Clearance 29.07 ml/min; Glucose 315 mg/dL (74-106); Potassium 4.3 mmol/L (3.5-5.1); Sodium Level 139 mmol/L (136-145)
--- NOTE | 2022-05-31 05:49 | PN.CC_ITS ---
Assessment & Plan Assessment/Plan (1) Shock: PLAN: Plan RECOMMENDATIONS: 1. Continue vasopressor support to maintain a mean arterial pressure at or above 65 mmHg. 2. Continue antimicrobials as ordered. 3. Continue to monitor H&H. Transfuse if hemoglobin drops below 7 g/dL. 4. Endoscopic work-up per GI recommendations. 5. Continue PPI therapy twice daily. 6. Continue to hold Eliquis and home antihypertensives. 7. Wean supplemental oxygen as tolerated. Encourage incentive spirometer use. IMPRESSIONS: 1. Undifferentiated shock Potential etiologies include septic, hemorrhagic or postanesthesia shock. The patient has a recent complex medical history including lumbar spine discitis/osteomyelitis, for which the patient deferred undergoing surgery. She was discharged recently from [facility] on May 22 with a PICC line, with tentative plans for prolonged IV antibiotics. Accordingly, the patient's lumbar spine and indwelling vascular catheter are potential sources of infection. The patient did receive multiple units of packed red blood cells perioperatively due to anemia and intraoperative blood loss. At this time, the patient will remain on antimicrobials pending infectious work-up. In the interim, plan to continue vasopressor support to maintain a mean arterial pressure at or above 65 mmHg. Given that the patient has underlying atrial fibrillation with a heart rate that is likely being exacerbated by the Levophed, will add vasopressin in hopes of decreasing her Levophed requirement. 2. Left periprosthetic distal femur fracture now POD #2 status post surgical revision and replacement Continue routine postoperative care per orthopedic surgery recommendations. 3. Acute on chronic anemia The patient has been transfused 3 units of packed red blood cells to date. There are no overt signs of GI blood loss. Plan to continue to monitor blood counts and transfuse if hemoglobin drops below 7 g/dL. Continue PPI therapy as ordered. 4. Atrial fibrillation with RVR Continue to hold home Eliquis for now. Initiate vasopressin in hopes of alleviating Levophed requirement that appears to be driving the patient's heart rate response. Ultimately, resume home beta-aydee regimen. 5. Acute on chronic kidney disease This is most likely secondary to hemodynamic instability in the setting of #1. I do anticipate improvement with stabilization of hemodynamics. Continue to monitor urine output for now. No current indication for renal replacement therapy. 6. Obesity/diabetes mellitus/hypertension/hyperlipidemia/recent lumbar spine infection Complicates care, management, recovery and prognosis. Plan to continue antimicrobials per recent discharge instructions, including ertapenem to address her lumbar spine discitis. The patient may ultimately require reimaging of her lumbar spine, depending on her clinical course. Continue to hold home antihypertensives. TIME: 35 minutes of critical care time, independent of procedures, was spent addressing the patient's undifferentiated shock, distal femur fracture, acute on chronic anemia, atrial fibrillation, acute on chronic kidney disease, review of all data and collaboration with the care team. Subjective Subjective The patient was seen and examined at the bedside this morning. Events from the last 24 hours have been reviewed. The patient is currently afebrile and maintaining appropriate oxygen saturations on 1 L/min via nasal cannula. The patient remains on Levophed at 6 mcg/min to maintain hemodynamic stability. Her vasopressin was weaned off this morning at approximately 0500. She remains in atrial fibrillation. The patient is currently documented to be overall net +5.2 L for the hospitalization. Hemoglobin has dropped to 7.3 g/dL this morning. Creatinine has improved to 1.32. Objective Data Objective Data The patient's most recent lab work, culture data and imaging studies have all been personally reviewed. Surface echocardiogram dated May 28 demonstrated normal LV size with an ejection fraction of 65%. MRSA screen was negative. Pulmonary artery systolic pressure was estimated to be 65 mmHg. Blood and urine cultures are pending. Vital Signs: Vital Signs Temp Pulse Resp BP Pulse Ox O2 Del Method O2 Flow Rate 97.2 F L 131 H 15 153/62 H 99 Nasal Cannula 1 05/31/22 00:00 05/31/22 05:00 05/31/22 05:00 05/31/22 05:00 05/31/22 05:00 05/31/22 05:00 05/31/22 05:00 Oxygen Flow Rate (L/min) 1 Oxygen Delivery Method Nasal Cannula Weight: 216 lb 0.848 oz Body Mass Index (BMI) 38.2 Intake & Output: Intake and Output for Last 24 Hours 05/29/22 05/30/22 05/31/22 23:59 23:59 23:59 Intake Total 3863.12 / 3867.82 2759.34 / 2826.24 265.21 / 265.21 Output Total 1425 / 1425 470 / 1220 750 / 750 Balance 2438.12 / 2442.82 2289.34 / 1606.24 -484.79 / -484.79 Lab / Micro Data Attestation: I reviewed the patient's lab results. Result Diagrams: 05/31/22 04:55 05/31/22 04:55 Labs: Laboratory Results - last 24 hr 05/30/22 07:40: Procalcitonin 4.62 H 05/30/22 07:40: Lactic Acid 1.6 05/30/22 08:45: MRSA (PCR) Negative 05/30/22 08:50: POC Glucose 273 H 05/30/22 09:40: Urine Color Yellow, Urine Clarity Sl. Cloudy, Urine pH 6.0, Ur Specific [place] 1.025, Urine Protein 100 H, Urine Glucose (UA) 50 H, Urine Ketones 5 H, Urine Occult Blood 50 H, Urine Nitrite Negative, Urine Bilirubin Negative, Urine Urobilinogen Normal, Ur Leukocyte Esterase 500 H, Urine RBC 10- 25 SEEN, Urine WBC 25-50 SEEN, Ur Squamous Epith Cells 0-5 SEEN, Urine Bacteria 2+, Urine Mucus 0 SEEN 05/30/22 09:40: Ur Random Sodium 23, Urine Creatinine 98.80 05/30/22 10:43: POC Glucose 297 H 05/30/22 16:49: POC Glucose 349 H 05/30/22 21:28: POC Glucose 458 H* 05/31/22 04:55: WBC 8.4, RBC 2.32 L, Hgb 7.3 L, Hct 22.3 L, MCV 96.1, MCH 31.5, MCHC 32.7, RDW Std Deviation 56.8 H, RDW Coeff of Sherif 17.3 H, Plt Count 151, MPV 10.2, Immature Gran % (Auto) 1.600 H, Neut % (Auto) 83.6 H, Lymph % (Auto) 7.5 L , [place] % (Auto) 4.7, Eos % (Auto) 2.2, Baso % (Auto) 0.4, Absolute Neuts (auto) 7.0, Absolute Lymphs (auto) 0.63 L, Nucleated RBC % 1.0 05/31/22 04:55: Sodium 139, Potassium 4.3, Chloride 112 H, Carbon Dioxide 22.0, Anion Gap 5, BUN 40 H, Creatinine 1.32 H, Estim Creat Clear Calc 29.07, Est GFR (MDRD) Af Amer 51 L, Est GFR (MDRD) Non-Af 42 L, BUN/Creatinine Ratio 30.3 H, Glucose 315 H, Calcium 7.4 L Micro: Microbiology 05/29/22 Unknown Tissue - Tibial Membrane Gram Stain - Final 05/29/22 Unknown Tissue - Tibial Membrane Wound Culture - Preliminary No growth-Final to follow 05/29/22 Unknown Tissue - Femoral Membrane Gram Stain - Final 05/29/22 Unknown Tissue - Femoral Membrane Wound Culture - Preliminary No growth-Final to follow 05/29/22 Unknown Tissue - Suprapatellar Pouch Gram Stain - Final 05/29/22 Unknown Tissue - Suprapatellar Pouch Wound Culture - Preliminary No growth-Final to follow Radiography Diagnostic Testing: Radiology Impression Chest X-Ray 05/30/22 06:45 IMPRESSION: Poor inspiration with some bibasilar atelectasis. Electronically Signed: Leon Almanza MD at 9:08 EDT , Physical Exam Const alert and no apparent distress General Appearance: cooperative Nutritional Appearance: obese HEENT normocephalic and head/scalp atraumatic Eyes PERRL, EOMs intact bilaterally and conjunctivae normal Neck supple General: trachea midline Chest inspection of chest normal Resp normal respiratory effort Auscultation: wheezes; Negative for rales or rhonchi Cardio S1 normal heart sound and S2 normal heart sound Rate: tachycardic Rhythm: abnormal rhythm GI normal to inspection, nondistended, normoactive bowel sounds Extremity no clubbing, cyanosis or edema Skin no rashes or lesions noted Neuro CN's II-XII intact bilaterally and no focal motor deficits Psych Mood & Affect: flat affect Charges/Coding Procedures Hospitalists Procedures: 76850 Critial Care 1st Hr
[2022-05-31] MEDS: Insulin Lispro 100 UNIT/ML INSULN.PEN SC ×4 (06:03→21:53)
[2022-05-31 06:30] LABS: Bedside Glucose 282 mg/dL (74-106)
[2022-05-31] MEDS: Metoprolol Tartrate 50 MG Tablet PO (07:59)
--- NOTE | 2022-05-31 08:55 | PCM.PN.ORT ---
Subjective Subjective The patient was sitting in bed upon examination. Patient denies any chest pain, shortness of breath, dizziness, lightheadedness, nausea or vomiting, or calf pain. Pain is controlled on medications. No adverse overnight events. Patient has no significant complaints with regards to her left knee. Upon discussion with the floor nurse they have been dealing with patient going under RVR. Consultation with solvent process extractor operator Dr. Nguyen saw the patient and does feel patient would benefit from an upper endoscopy once medically stable. Patient has already had preoperatively and postoperative transfusion. She has had a drop in hemoglobin today and currently 7.3 from 8.6 on May 30, 2022. She currently denies any dizziness or lightheadedness. Discussed with the nurse about therapy and they state they tried getting up to bedside chair and she was a 4 person assist. They will try again today. Cultures have been negative from surgery. She is currently on antibiotic from previous spine infection. Objective Data Objective Data Vital Signs: Vital Signs Temp Pulse Resp BP Pulse Ox O2 Del Method O2 Flow Rate 97.2 F L 167 H 18 140/48 H 98 Nasal Cannula 1 05/31/22 00:00 05/31/22 07:59 05/31/22 07:00 05/31/22 07:59 05/31/22 07:00 05/31/22 07:00 05/31/22 07:00 Oxygen Flow Rate (L/min) 1 Oxygen Delivery Method Nasal Cannula Weight: 99.5 kg Body Mass Index (BMI) 38.2 Intake & Output: Intake and Output for Last 24 Hours 05/29/22 05/30/22 05/31/22 23:59 23:59 23:59 Intake Total 3863.12 / 3867.82 2759.34 / 2826.24 689.61 / 689.61 Output Total 1425 / 1425 470 / 1220 1025 / 1025 Balance 2438.12 / 2442.82 2289.34 / 1606.24 -335.39 / -335.39 Lab / Micro Data Result Diagrams: 05/31/22 04:55 05/31/22 04:55 Labs: Laboratory Results - last 24 hr 05/28/22 13:20: Crossmatch See Detail 05/30/22 08:45: MRSA (PCR) Negative 05/30/22 08:50: POC Glucose 273 H 05/30/22 09:40: Urine Color Yellow, Urine Clarity Sl. Cloudy, Urine pH 6.0, Ur Specific [place] 1.025, Urine Protein 100 H, Urine Glucose (UA) 50 H, Urine Ketones 5 H, Urine Occult Blood 50 H, Urine Nitrite Negative, Urine Bilirubin Negative, Urine Urobilinogen Normal, Ur Leukocyte Esterase 500 H, Urine RBC 10-25 SEEN, Urine WBC 25-50 SEEN, Ur Squamous Epith Cells 0-5 SEEN, Urine Bacteria 2+, Urine Mucus 0 SEEN 05/30/22 09:40: Ur Random Sodium 23, Urine Creatinine 98.80 05/30/22 10:43: POC Glucose 297 H 05/30/22 16:49: POC Glucose 349 H 05/30/22 21:28: POC Glucose 458 H* 05/31/22 04:55: WBC 8.4, RBC 2.32 L, Hgb 7.3 L, Hct 22.3 L, MCV 96.1, MCH 31.5, MCHC 32.7, RDW Std Deviation 56.8 H, RDW Coeff of Sherif 17.3 H, Plt Count 151, MPV 10.2, Immature Gran % (Auto) 1.600 H, Neut % (Auto) 83.6 H, Lymph % (Auto) 7.5 L, [place] % (Auto) 4.7, Eos % (Auto) 2.2, Baso % (Auto) 0.4, Absolute Neuts (auto) 7.0, Absolute Lymphs (auto) 0.63 L, Nucleated RBC % 1.0 05/31/22 04:55: Sodium 139, Potassium 4.3, Chloride 112 H, Carbon Dioxide 22.0, Anion Gap 5, BUN 40 H, Creatinine 1.32 H, Estim Creat Clear Calc 29.07, Est GFR (MDRD) Af Amer 51 L, Est GFR (MDRD) Non-Af 42 L, BUN/Creatinine Ratio 30.3 H, Glucose 315 H, Calcium 7.4 L 05/31/22 06:02: POC Glucose 282 H Micro: Microbiology 05/29/22 Unknown Tissue - Tibial Membrane Gram Stain - Final 05/29/22 Unknown Tissue - Tibial Membrane Wound Culture - Preliminary No growth-Final to follow 05/29/22 Unknown Tissue - Femoral Membrane Gram Stain - Final 05/29/22 Unknown Tissue - Femoral Membrane Wound Culture - Preliminary No growth-Final to follow 05/29/22 Unknown Tissue - Suprapatellar Pouch Gram Stain - Final 05/29/22 Unknown Tissue - Suprapatellar Pouch Wound Culture - Preliminary No growth-Final to follow Radiography Diagnostic Testing: Radiology Impression Chest X-Ray 05/30/22 06:45 IMPRESSION: Poor inspiration with some bibasilar atelectasis. Electronically Signed: Leon Almanza MD at 9:08 EDT , Physical Exam Narrative Blood pressures have been maintaining and patient has been in tachycardia, currently on nasal cannula oxygen 1 L/min with 98% O2 saturation Patient is able to plantarflex and dorsiflex actively. [place] wrap in place over the left lower extremity. Nurse states they have had difficulty due to patient's body habitus with the left upper thigh Sensation is intact to light touch to saphenous, sural, superficial and deep peroneal, and tibial distribution. Dressing is moderate drainage not contacting both borders Negative Homans bilaterally, negative signs and symptoms of DVT. Const alert, oriented x3 and no apparent distress Assessment & Plan Assessment/Plan (1) Status post revision of total replacement of left knee: PLAN: 1. S/P left revision total knee replacement to a hinged prosthesis/distal femoral replacement with both components POD #1 2. Continue Pain Medications: Tylenol and oxycodone 3. DVT Prophylaxis: Eliquis is currently on hold. Continue with Eliquis directed by medicine/office machines teacher for postoperative DVT prophylaxis when medically appropriate. Recommend SCDs on bilateral lower extremities 4. PT/OT: Weightbearing as tolerated with walker, okay to work on full range of motion of left knee as tolerated 5. H & H: 7.3/22.3, asymptomatic. Acute on chronic anemia with postoperative involvement secondary to acute blood loss from surgery without any intra operative complications. Per office machines teacher note will transfuse again if hemoglobin drops below 7. 6. Encouraged Incentive Spirometry 7. Continue with antibiotics: Intraoperative cultures have been negative. She currently is on antibiotic secondary to a previous spine infection. 8. Continue postoperative medical management per medicine/office machines teacher 9. Continue work-up per solvent process extractor operator: Dr. Nguyen feels patient would benefit from upper endoscopy when medically stable. 10. Disposition: Orthopedically patient appears to be stable from her left knee revision with distal femoral replacement. Her pain has been very well controlled. Continue current care from the office machines teacher and medicine providers. Please contact orthopedics with any orthopedic concern. This dictation was created using voice recognition software. Phonetic and/or grammatical errors may exist.
--- NOTE | 2022-05-31 10:19 | PN.RENAL_ITS ---
Subjective Subjective Following for SRIDEVI on CKD. No new complaints today. There is no chest pain or shortness of breath. Appetite remains poor. Objective Data Objective Data Vital Signs: Vital Signs Temp Pulse Resp BP Pulse Ox O2 Del Method O2 Flow Rate 97.2 F L 167 H 18 140/48 H 98 Nasal Cannula 1 05/31/22 00:00 05/31/22 07:59 05/31/22 07:00 05/31/22 07:59 05/31/22 07:00 05/31/22 07:00 05/31/22 07:00 Oxygen Flow Rate (L/min) 1 Oxygen Delivery Method Nasal Cannula Weight: 99.5 kg Body Mass Index (BMI) 38.2 Intake & Output: Intake and Output for Last 24 Hours 05/29/22 05/30/22 05/31/22 23:59 23:59 23:59 Intake Total 3863.12 / 3867.82 2759.34 / 2826.24 689.61 / 689.61 Output Total 1425 / 1425 470 / 1220 1025 / 1025 Balance 2438.12 / 2442.82 2289.34 / 1606.24 -335.39 / -335.39 Lab / Micro Data Result Diagrams: 05/31/22 04:55 05/31/22 04:55 Labs: Laboratory Results - last 24 hr 05/28/22 13:20: Crossmatch See Detail 05/30/22 08:45: MRSA (PCR) Negative 05/30/22 09:40: Ur Random Sodium 23, Urine Creatinine 98.80 05/30/22 10:43: POC Glucose 297 H 05/30/22 16:49: POC Glucose 349 H 05/30/22 21:28: POC Glucose 458 H* 05/31/22 04:55: WBC 8.4, RBC 2.32 L, Hgb 7.3 L, Hct 22.3 L, MCV 96.1, MCH 31.5, MCHC 32.7, RDW Std Deviation 56.8 H, RDW Coeff of Sherif 17.3 H, Plt Count 151, MPV 10.2, Immature Gran % (Auto) 1.600 H, Neut % (Auto) 83.6 H, Lymph % (Auto) 7.5 L , [place] % (Auto) 4.7, Eos % (Auto) 2.2, Baso % (Auto) 0.4, Absolute Neuts (auto) 7.0, Absolute Lymphs (auto) 0.63 L, Nucleated RBC % 1.0 05/31/22 04:55: Sodium 139, Potassium 4.3, Chloride 112 H, Carbon Dioxide 22.0, Anion Gap 5, BUN 40 H, Creatinine 1.32 H, Estim Creat Clear Calc 29.07, Est GFR (MDRD) Af Amer 51 L, Est GFR (MDRD) Non-Af 42 L, BUN/Creatinine Ratio 30.3 H, Glucose 315 H, Calcium 7.4 L 05/31/22 06:02: POC Glucose 282 H Micro: Microbiology 05/29/22 Unknown Tissue - Tibial Membrane Gram Stain - Final 05/29/22 Unknown Tissue - Tibial Membrane Wound Culture - Preliminary No growth-Final to follow 05/29/22 Unknown Tissue - Femoral Membrane Gram Stain - Final 05/29/22 Unknown Tissue - Femoral Membrane Wound Culture - Preliminary No growth-Final to follow 05/29/22 Unknown Tissue - Suprapatellar Pouch Gram Stain - Final 05/29/22 Unknown Tissue - Suprapatellar Pouch Wound Culture - Preliminary No growth-Final to follow Physical Exam Narrative General: Alert and oriented x3 in no apparent distress. Heart: Tachycardic. Irregularly irregular S1, S2. No rubs, murmurs or gallops. Lungs: Clear to auscultation anteriorly . Abdomen: Obese, normal bowel sound. Abdomen is soft, nontender, no guarding or rebound. Extremities: No clubbing, cyanosis, or edema. Assessment & Plan Assessment/Plan (1) SRIDEVI (acute kidney injury): PLAN: SRIDEVI is due to prerenal azotemia due to decreased effective blood volume related to hypotension. Urine studies from 05/30/2022 are consistent with prerenal azotemia. Thus far, serum creatinine has peaked at 1.65 mg/dL on 05/30/2022. Prerenal SRIDEVI can also evolved to ischemic ATN in her case since she is still requiring IV vasopressor. So, we will continue to monitor her closely. Low suspicion for other causes of SRIDEVI. Renal function has improved and is now close to baseline. She is not oliguric. Potassium level has improved, and she is not acidotic. Continue to keep MAP above 65 mmHg with IV vasopressor. The patient does not appear to be volume overloaded, so I encourage her to push fluid. Current medications are reviewed and are appropriately dosed for her renal function. (2) Chronic kidney disease, stage 3b: PLAN: Patient has underlying chronic kidney disease, likely due to diabetic kidney disease. Serum creatinine is around 1.3 to 1.4 mg/dL at baseline. She is followed by sales floor team leader in [place], Dr. Perla. (3) Hyperkalemia: PLAN: Hyperkalemia was likely due to decreased perfusion to the kidney/SRIDEVI. The patient was also mildly acidotic which can contribute to hyperkalemia. She was treated with insulin/D50 and sodium polystyrene sulfonate. Potassium level is better today. We will continue to monitor potassium levels. There is no need for kidney replacement therapy at this point. (4) Essential (primary) hypertension: PLAN: The patient had been on antihypertensives as outpatient. However, she was not on CHAS inhibitor, ARB or aldosterone antagonist. Currently, she remains hypotensive on vasopressor agent. Therefore, antihypertensives are on hold. We will continue to watch her blood pressure. (5) Hypotension: PLAN: Etiology of hypotension is under investigation. The patient does have pyuria, and urine culture is growing gram-positive organism. Could also be related to subacute/chronic osteomyelitis of the lumbar region versus new infection. She is still requiring IV vasopressor. The patient is receiving ertapenem. With improvement of renal function, ertapenem can be increased to 1 g IV every 24 hours from the nephrology standpoint if this dose is indicated.
--- NOTE | 2022-05-31 10:43 | PN.HOSP_ITS ---
Subjective Subjective Patient seen and examined. She was lying comfortably in bed and had no active problems. She had an uneventful night and review of systems otherwise negative. Her heart rate was noted to be elevated today and this is because she is not been on her beta-aydee on account of her hypotension. She has been started on metoprolol. She has been weaned off the vasopressin but still remains on Levophed which is being titrated downwards. Objective Data Objective Data Vital Signs: Vital Signs Temp Pulse Resp BP Pulse Ox O2 Del Method O2 Flow Rate 97.2 F L 167 H 18 140/48 H 98 Nasal Cannula 1 05/31/22 00:00 05/31/22 07:59 05/31/22 07:00 05/31/22 07:59 05/31/22 07:00 05/31/22 07:00 05/31/22 07:00 Oxygen Flow Rate (L/min) 1 Oxygen Delivery Method Nasal Cannula Weight: 219 lb 5.759 oz Body Mass Index (BMI) 38.2 Intake & Output: Intake and Output for Last 24 Hours 05/29/22 05/30/22 05/31/22 23:59 23:59 23:59 Intake Total 3863.12 / 3867.82 2759.34 / 2826.24 689.61 / 689.61 Output Total 1425 / 1425 470 / 1220 1025 / 1025 Balance 2438.12 / 2442.82 2289.34 / 1606.24 -335.39 / -335.39 Lab / Micro Data Result Diagrams: 05/31/22 04:55 05/31/22 04:55 Labs: Laboratory Results - last 24 hr 05/28/22 13:20: Crossmatch See Detail 05/30/22 10:43: POC Glucose 297 H 05/30/22 16:49: POC Glucose 349 H 05/30/22 21:28: POC Glucose 458 H* 05/31/22 04:55: WBC 8.4, RBC 2.32 L, Hgb 7.3 L, Hct 22.3 L, MCV 96.1, MCH 31.5, MCHC 32.7, RDW Std Deviation 56.8 H, RDW Coeff of Sherif 17.3 H, Plt Count 151, MPV 10.2, Immature Gran % (Auto) 1.600 H, Neut % (Auto) 83.6 H, Lymph % (Auto) 7.5 L , [place] % (Auto) 4.7, Eos % (Auto) 2.2, Baso % (Auto) 0.4, Absolute Neuts (auto) 7.0, Absolute Lymphs (auto) 0.63 L, Nucleated RBC % 1.0 05/31/22 04:55: Sodium 139, Potassium 4.3, Chloride 112 H, Carbon Dioxide 22.0, Anion Gap 5, BUN 40 H, Creatinine 1.32 H, Estim Creat Clear Calc 29.07, Est GFR (MDRD) Af Amer 51 L, Est GFR (MDRD) Non-Af 42 L, BUN/Creatinine Ratio 30.3 H, Glucose 315 H, Calcium 7.4 L 05/31/22 06:02: POC Glucose 282 H Micro: Microbiology 05/30/22 09:40 Urine Catheter - Davis Urine Culture - Preliminary Gram positive organism 05/29/22 Unknown Tissue - Tibial Membrane Gram Stain - Final 05/29/22 Unknown Tissue - Tibial Membrane Wound Culture - Preliminary No growth-Final to follow 05/29/22 Unknown Tissue - Femoral Membrane Gram Stain - Final 05/29/22 Unknown Tissue - Femoral Membrane Wound Culture - Preliminary No growth-Final to follow 05/29/22 Unknown Tissue - Suprapatellar Pouch Gram Stain - Final 05/29/22 Unknown Tissue - Suprapatellar Pouch Wound Culture - Preliminary No growth-Final to follow Physical Exam Const alert, oriented x3 and no apparent distress HEENT head/scalp atraumatic, moist oral mucous membranes and oropharynx normal Head and Scalp: normocephalic Mouth: oral and palatal mucosa normal Eyes PERRL, EOMs intact bilaterally and conjunctivae normal Neck no lymphadenopathy and supple Resp normal respiratory effort, no retractions, no use of accessory muscles and clear to auscultation bilaterally Resp Narrative: on 1L of oxygen Cardio regular rhythm, S1 normal heart sound, S2 normal heart sound and no murmurs Cardio Narrative: tachycardic GI normal to inspection, nondistended, normoactive bowel sounds, soft to palpation, non-tender and non-distended Extremity Extremity Narrative: left knee wrapped in bandage Neuro oriented x3 and CN's II-XII intact bilaterally Sensorium / Orientation: awake and alert Speech: speech normal Psych Psych Narrative: flat affect Assessment & Plan Assessment/Plan (1) Closed fracture of left distal femur: PLAN: Plan # shock, likely hemorrhagic vs septic * likely due to blood loss from surgery though she was also on ertapenem for chronic spine infection, so septic shock cannot be ruled out * has been transfused a total of 2 units since surgery; was transfused with 2 units prior to surgery * has been weaned off vasopressin; now on levophed * critical care on board. * titrate vasopressor to maintain MAP >65 #Afib * At rate has been poorly controlled. This likely because she is not been getting her beta-blockers * Patient's metoprolol resumed today. * IV Lopressor as needed. * #Left distal femoral fracture due to mechanical fall * today is POD 3 of revision of left total knee replacement to hinged prosthesis * orthopedic surgery on board * eliquis on hold * PT/OT on board * fall precautions * continue current pain meds * #Anemia * appears to be an iron deficiency anemia and complicated by blood loss from surgery * has been transfused a total of 4 units of PRBCs * Iron panel showed low iron level of 13 with TIBC of 275 and iron saturation of only 10.9 with ferritin only mildly elevated at 266. * vitamin B12 is WNL. rbc folate is pending * on PO pantoprazole 40mg bid * GI on board; recommends an EGD for now * Hb today is 7.3 * #Leucocytosis * resolved. Down to 8.4. * * #Hyperkalemia: resolved #Non anion gap metabolic acidosis * resolved. * #Lactic acidosis: * resolved. * #SRIDEVI * Creatinine is down to 1.32 today * resolving . 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 #Paroxysmal A. fib: Eliquis on hold. cardizem on hold due to hypotension. metoprolol resumed. #Hypertension: on metoprolol #Type 2 diabetes mellitus; on NPH insulin 10 units qhs and 20 units qam. Insulin sliding scale. Accu-Cheks ACH S. A1C is 6.9 #Dyslipidemia: On statin DVT prophylaxis: SCDs; unable to anticoagulate due to anemia. Charges/Coding Visit Charges Inpatient E&M: 89348 Subs Hosp L3
[2022-05-31] MEDS: Nystatin Powder 15gm Bottle 1 APPLIC TOPICAL ×2 (10:49→21:53)
[2022-05-31] MEDS: Calcium Carb/Vitamin D 1 TABLET Tablet PO (10:59)
[2022-05-31] MEDS: Senna/Docusate Sodium 1 Tablet 2 TABLET PO (11:00)
[2022-05-31] MEDS: Gabapentin 100 MG Capsule PO (11:03)
[2022-05-31] MEDS: Insulin NPH Human 100 UNITS/ML PEN 20 UNITS SC (11:07)
--- NOTE | 2022-05-31 11:14 | RAD_ITS ---
STUDY: X-RAY CHEST REASON FOR EXAM: Female, 71 years old. Shortness of breath and cough TECHNIQUE: Single AP portable view of the chest. COMPARISON: Yesterday FINDINGS: EKG leads overlie the chest, stable appearance of a right sided PICC line The lungs are clear and expanded. There is no demonstrated pleural abnormality. Normal size heart. Normal mediastinum and salomon. Normal visualized pulmonary arteries. There is atherosclerotic calcification of the aortic arch with tortuosity. There are diffuse degenerative changes of the visualized thoracic spine. There is degenerative osteoarthritis of the bilateral shoulders. There is no demonstrated abnormality of the visualized soft tissue structures of the upper abdomen. RAD/Chest 1 View (Portable) IMPRESSION: No acute pulmonary process Electronically Signed: Michel Salter MD at 11:50 EDT ,
--- NOTE | 2022-05-31 11:16 | NURSING ---
This RN giving meds to pt, she wakes readily but it is work to keep pt attention on task at hand. She swallowed neurontin w/out diff. Pt took long time w/os-ender in her mouth, taking small sips H20. She then coughed, swallowed hard. Her eyes rolled back and she stopped responding. She was out for approx 2min or less. She is now responding appropriately but is very wheezy bilat and is requiring 6lnc to keep SpO2 >90.
[2022-05-31 11:40] LABS: Bedside Glucose 398 mg/dL (74-106)
[2022-05-31] MEDS: 0.9% Saline Lock 10 ML Syringe IV (16:36)
[2022-05-31 17:00] LABS: Bedside Glucose 299 mg/dL (74-106)
[2022-05-31] MEDS: Lactated Ringers 1,000 ML 100 ML IV (18:11)
[2022-05-31] MEDS: Insulin NPH Human 100 UNITS/ML PEN 10 UNITS SC (18:58)
[2022-05-31 20:07] LABS: Folate, RBC (Hct) Test 21.4 % (34.0-46.6)
[2022-05-31 20:17] LABS: Folates, RBC Test 1916 ng/mL (>498)
[2022-05-31] MEDS: Metoprolol Tartrate 5 MG/5 ML Vial 2.5 MG IV (21:52)
[2022-05-31] MEDS: Latanoprost 0.005% 1 Bottle 1 DRP EACH EYE (21:54)
[2022-05-31 22:36] LABS: Bedside Glucose 286 mg/dL (74-106)
[2022-06-01] VITALS (14 sets, daily range): BP systolic 111–137; BP diastolic 44–59; PULSE 133–152; RESP 17–25; TEMP 36.3–37.2; O2SAT 94–100
[2022-06-01] MEDS: Lactated Ringers 1,000 ML 100 ML IV (04:06)
[2022-06-01 04:07] LABS: Absolute Lymphocyte Count 0.75 X10^3/uL (0.83-4.51); Absolute Neutrophil Count 6.8 X10^3/uL (2.0-7.7); Basophil# 0.01 X10^3/uL; Basophil% 0.1 % (0-1); Eosinophil# 0.09 X10^3/uL; Eosinophils% 1.1 % (0-5); Hemoglobin 6.6 g/dL (12.0-15.0); Lymphocyte # 0.75 X10^3/ul (0.83-4.51); Lymphocyte % 9.2 % (19-41); Mean Corpuscular Hgb 32.2 pg (27.0-32.0); Mean Corpuscular Volume 97.6 fL (81-99); Mean Platelet Vol. 9.7 fl (6.2-12.0); Monocyte# 0.48 X10^3/uL; Monocyte% 5.9 % (0-10); NRBC Flagged by Analyzer 0.6 % (0-5); Neutrophil # 6.78 X10^3/uL (2.7-7.7); Neutrophil % 82.7 % (47-70); Platelet Count 119 K/mm3 (150-450); RBC Distribution Width CV 17.4 % (11.6-14.6); Red Blood Count 2.05 M/mm3 (4.2-5.4); White Blood Count 8.2 K/mm3 (4.4-11.0)
[2022-06-01 04:21] LABS: Anion Gap 6 (5-15); BUN 36 mg/dL (7-18); BUN/Creat Ratio 37.3 RATIO (10-20); Calcium,Total 7.6 mg/dL (8.5-10.1); Chloride 113 mmol/L (98-107); Creatinine, Serum 0.97 mg/dL (0.55-1.02); EST Glomerular Filtration Rate 60 mL/min (>60); Est Glom Filt Rate - Afr Amer 73 mL/min (>60); Estimated Creatinine Clearance 39.56 ml/min; Glucose 188 mg/dL (74-106); Potassium 3.8 mmol/L (3.5-5.1); Sodium Level 143 mmol/L (136-145)
--- NOTE | 2022-06-01 07:03 | PCM.PN.INT ---
Assessment & Plan Assessment/Plan (1) Shock: PLAN: Plan RECOMMENDATIONS: 1. Hold pressors for now. 2. Continue antimicrobials as ordered. 3. Continue to monitor H&H. Transfuse blood if patient continues to want aggressive measures 4. Endoscopic work-up per GI recommendations. 5. Continue PPI therapy twice daily. 6. Continue to hold Eliquis and home antihypertensives. 7. Wean supplemental oxygen as tolerated. Encourage incentive spirometer use. 8. Await response of hospice meeting IMPRESSIONS: 1. Undifferentiated shock Potential etiologies include septic, hemorrhagic or postanesthesia shock. The patient has a recent complex medical history including lumbar spine discitis/osteomyelitis, for which the patient deferred undergoing surgery. She was discharged recently from [facility] on May 22 with a PICC line, with tentative plans for prolonged IV antibiotics. Accordingly, the patient's lumbar spine and indwelling vascular catheter are potential sources of infection. The patient did receive multiple units of packed red blood cells perioperatively due to anemia and intraoperative blood loss. Cultures are showing only fungal urine growth. Blood pressure has improved despite fall and hemoglobin. Patient currently off of pressors. Rate control is limited given hypotension. 2. Left periprosthetic distal femur fracture now POD #3 status post surgical revision and replacement Continue routine postoperative care per orthopedic surgery recommendations. Patient is not reporting any syncopal event leading to fall 3. Acute on chronic anemia The patient has been transfused 3 units of packed red blood cells to date. There are no overt signs of GI blood loss. Plan to continue to monitor blood counts and transfuse if hemoglobin drops below 7 g/dL. Continue PPI therapy as ordered. Anticipate transfusing 2 more units of blood if patient remains aggressive 4. Atrial fibrillation with RVR Continue to hold home Eliquis for now. Possibly attempt to resume beta-aydee following blood transfusion if patient wishes to remain aggressive. 5. Acute on chronic kidney disease This is most likely secondary to hemodynamic instability in the setting of #1. Improved renal function. Continue to monitor urine output for now. No current indication for renal replacement therapy. 6. Obesity/diabetes mellitus/hypertension/hyperlipidemia/recent lumbar spine infection Complicates care, management, recovery and prognosis. Plan to continue antimicrobials per recent discharge instructions, including ertapenem to address her lumbar spine discitis. The patient may ultimately require reimaging of her lumbar spine, depending on her clinical course. Continue to hold home antihypertensives. Subjective Subjective Patient did okay overnight. No acute issues were reported. Patient has remained in A. fib. Patient has been able to be taken off of Levophed. Patient did receive some Lopressor overnight secondary to A. fib with RVR, but this was subsequently held secondary to resulting hypotension. Patient reportedly is to have a hospice discussion later this morning. Objective Data Objective Data Vital Signs: Vital Signs Temp Pulse Resp BP Pulse Ox O2 Del Method O2 Flow Rate 36.3 C L 148 H 18 127/52 H 94 Nasal Cannula 2 06/01/22 00:00 06/01/22 06:00 06/01/22 06:00 06/01/22 06:00 06/01/22 06:00 06/01/22 06:00 06/01/22 06:00 Oxygen Flow Rate (L/min) 2 Oxygen Delivery Method Nasal Cannula Weight: 102.3 kg Body Mass Index (BMI) 38.2 Intake & Output: Intake and Output for Last 24 Hours 05/30/22 05/31/22 06/01/22 23:59 23:59 23:59 Intake Total 2759.34 / 2826.24 1053.71 / 1053.71 1101.67 / 1101.67 Output Total 470 / 1220 1400 / 1400 Balance 2289.34 / 1606.24 -346.29 / -346.29 1101.67 / 1101.67 Lab / Micro Data Attestation: I reviewed the patient's lab results. Result Diagrams: 06/01/22 04:00 06/01/22 04:00 Labs: Laboratory Results - last 24 hr 05/28/22 13:20: RBC Folate Hemolysate 410.0, RBC Folate 1916, Hematocrit 21.4 L 05/28/22 13:20: Crossmatch See Detail 05/31/22 11:05: POC Glucose 398 H 05/31/22 16:39: POC Glucose 299 H 05/31/22 21:50: POC Glucose 286 H 06/01/22 04:00: WBC 8.2, RBC 2.05 L, Hgb 6.6 L, Hct 20.0 L, MCV 97.6, MCH 32.2 H, MCHC 33.0, RDW Std Deviation 59.0 H, RDW Coeff of Sherif 17.4 H, Plt Count 119 L, MPV 9.7, Immature Gran % (Auto) 1.000 H, Neut % (Auto) 82.7 H, Lymph % (Auto) 9.2 L, [place] % (Auto) 5.9, Eos % (Auto) 1.1, Baso % (Auto) 0.1, Absolute Neuts (auto) 6.8, Absolute Lymphs (auto) 0.75 L, Nucleated RBC % 0.6 06/01/22 04:00: Sodium 143, Potassium 3.8, Chloride 113 H, Carbon Dioxide 24.0, Anion Gap 6, BUN 36 H, Creatinine 0.97, Estim Creat Clear Calc 39.56, Est GFR (MDRD) Af Amer 73, Est GFR (MDRD) Non-Af 60, BUN/Creatinine Ratio 37.3 H, Glucose 188 H, Calcium 7.6 L Micro: Microbiology 05/31/22 15:10 Stool Stool Occult Blood (NNEKA) - Final Occult Blood Positive 05/30/22 09:40 Urine Catheter - Davis Urine Culture - Preliminary Yeast Like Organism 05/29/22 Unknown Tissue - Femoral Membrane Gram Stain - Final 05/29/22 Unknown Tissue - Femoral Membrane Wound Culture - Preliminary No growth-Final to follow 05/29/22 Unknown Tissue - Femoral Membrane Anaerobic Culture - Preliminary No growth in 48 hours. 05/29/22 Unknown Tissue - Tibial Membrane Gram Stain - Final 05/29/22 Unknown Tissue - Tibial Membrane Wound Culture - Preliminary No growth-Final to follow 05/29/22 Unknown Tissue - Tibial Membrane Anaerobic Culture - Preliminary No growth in 48 hours. 05/29/22 Unknown Tissue - Suprapatellar Pouch Gram Stain - Final 05/29/22 Unknown Tissue - Suprapatellar Pouch Wound Culture - Preliminary No growth-Final to follow 05/29/22 Unknown Tissue - Suprapatellar Pouch Anaerobic Culture - Preliminary No growth in 48 hours. Radiography Diagnostic Testing: Radiology Impression Chest X-Ray 05/31/22 11:14 IMPRESSION: No acute pulmonary process Electronically Signed: Michel Salter MD at 11:50 EDT , Rhythm Strip Rhythm Strip: A-fib Rate: 136 Ectopy: None Physical Exam Const alert and no apparent distress General Appearance: cooperative Nutritional Appearance: obese HEENT normocephalic and head/scalp atraumatic Eyes PERRL, EOMs intact bilaterally and conjunctivae normal Neck supple General: trachea midline Chest inspection of chest normal Resp normal respiratory effort Auscultation: Negative for rales, rhonchi or wheezes Cardio S1 normal heart sound, S2 normal heart sound, no murmurs, no rub and no gallops Rate: tachycardic Rhythm: abnormal rhythm irregularly irregular GI normal to inspection, nondistended, normoactive bowel sounds Extremity no clubbing, cyanosis or edema Skin no rashes or lesions noted Neuro CN's II-XII intact bilaterally, moves all extremities and no focal motor deficits Psych Mood & Affect: flat affect Charges/Coding Visit Charges Inpatient E&M: 87206 Subs Hosp L3
--- NOTE | 2022-06-01 07:33 | PN.HOSP_ITS ---
Subjective Subjective Denies complaints Objective Data Objective Data Vital Signs: Vital Signs Temp Pulse Resp BP Pulse Ox O2 Del Method O2 Flow Rate 36.3 C L 148 H 18 127/52 H 94 Nasal Cannula 2 06/01/22 00:00 06/01/22 06:00 06/01/22 06:00 06/01/22 06:00 06/01/22 06:00 06/01/22 06:00 06/01/22 06:00 Oxygen Flow Rate (L/min) 2 Oxygen Delivery Method Nasal Cannula Weight: 102.3 kg Body Mass Index (BMI) 38.2 Intake & Output: Intake and Output for Last 24 Hours 05/30/22 05/31/22 06/01/22 23:59 23:59 23:59 Intake Total 2759.34 / 2826.24 1053.71 / 1053.71 1101.67 / 1101.67 Output Total 470 / 1220 1400 / 1400 Balance 2289.34 / 1606.24 -346.29 / -346.29 1101.67 / 1101.67 Lab / Micro Data Result Diagrams: 06/01/22 04:00 06/01/22 04:00 Labs: Laboratory Results - last 24 hr 05/28/22 13:20: RBC Folate Hemolysate 410.0, RBC Folate 1916, Hematocrit 21.4 L 05/28/22 13:20: Crossmatch See Detail 05/31/22 11:05: POC Glucose 398 H 05/31/22 16:39: POC Glucose 299 H 05/31/22 21:50: POC Glucose 286 H 06/01/22 04:00: WBC 8.2, RBC 2.05 L, Hgb 6.6 L, Hct 20.0 L, MCV 97.6, MCH 32.2 H , MCHC 33.0, RDW Std Deviation 59.0 H, RDW Coeff of Sherif 17.4 H, Plt Count 119 L, MPV 9.7, Immature Gran % (Auto) 1.000 H, Neut % (Auto) 82.7 H, Lymph % (Auto) 9.2 L, [place] % (Auto) 5.9, Eos % (Auto) 1.1, Baso % (Auto) 0.1, Absolute Neuts (auto) 6.8, Absolute Lymphs (auto) 0.75 L, Nucleated RBC % 0.6 06/01/22 04:00: Sodium 143, Potassium 3.8, Chloride 113 H, Carbon Dioxide 24.0, Anion Gap 6, BUN 36 H, Creatinine 0.97, Estim Creat Clear Calc 39.56, Est GFR (MDRD) Af Amer 73, Est GFR (MDRD) Non-Af 60, BUN/Creatinine Ratio 37.3 H, Glucose 188 H, Calcium 7.6 L Micro: Microbiology 05/31/22 15:10 Stool Stool Occult Blood (NNEKA) - Final Occult Blood Positive 05/30/22 09:40 Urine Catheter - Davis Urine Culture - Preliminary Yeast Like Organism 05/29/22 Unknown Tissue - Femoral Membrane Gram Stain - Final 05/29/22 Unknown Tissue - Femoral Membrane Wound Culture - Preliminary No growth-Final to follow 05/29/22 Unknown Tissue - Femoral Membrane Anaerobic Culture - Preliminary No growth in 48 hours. 05/29/22 Unknown Tissue - Tibial Membrane Gram Stain - Final 05/29/22 Unknown Tissue - Tibial Membrane Wound Culture - Preliminary No growth-Final to follow 05/29/22 Unknown Tissue - Tibial Membrane Anaerobic Culture - Preliminary No growth in 48 hours. 05/29/22 Unknown Tissue - Suprapatellar Pouch Gram Stain - Final 05/29/22 Unknown Tissue - Suprapatellar Pouch Wound Culture - Preliminary No growth-Final to follow 05/29/22 Unknown Tissue - Suprapatellar Pouch Anaerobic Culture - Preliminary No growth in 48 hours. Radiography Diagnostic Testing: Radiology Impression Chest X-Ray 05/31/22 11:14 IMPRESSION: No acute pulmonary process Electronically Signed: Michel Salter MD at 11:50 EDT Reading Location ID and State: [facility] / [place] , Service support , Rhythm Strip Rhythm Strip: A-fib Rate: 136 Ectopy: None Physical Exam Const alert and no apparent distress Resp normal respiratory effort, no retractions and no use of accessory muscles Cardio Cardio Narrative: irregularly irregular Extremity General Extremity: edema bilateral Assessment & Plan Assessment/Plan (1) Closed fracture of left distal femur: PLAN: 05/29: s/p revision of left total knee replacement to hinged prosthesis orthopedic surgery on board PT/OT on board fall precautions continue current pain meds (2) Shock: PLAN: resolved shock, likely hemorrhagic vs septic likely due to blood loss from surgery though she was also on ertapenem for chronic spine infection, so septic shock cannot be ruled out has been transfused a total of 2 units since surgery; was transfused with 2 units prior to surgery has been weaned off vasopressin; now on levophed critical care on board. vassopressors off (3) Acute blood loss anemia: PLAN: appears to be an iron deficiency anemia and complicated by blood loss from surgery has been transfused a total of 4 units of PRBCs Iron panel showed low iron level of 13 with TIBC of 275 and iron saturation of only 10.9 with ferritin only mildly elevated at 266. vitamin B12 is WNL. rbc folate is pending GI following, recommending endoscopy on IV pantoprazole 40mg bid Hg 6.6 today Since she is hospice, will not transfuse. (4) Paroxysmal atrial fibrillation: PLAN: At rate has been poorly controlled. This likely because she is not been getting her beta-blockers Patient's metoprolol resumed today. IV Lopressor as needed. (5) SRIDEVI (acute kidney injury): PLAN: on CKD 3B nephrology following. non-oliguric. HLIV (6) Discitis: PLAN: Discitis/osteomyelitis at [facility] Pt declined surgery Plan was for long-term antibiotics. on ertapenam Given that she will be hospice, will DC abx. PLAN: Plan #Leucocytosis * resolved. Down to 8.4. #Hyperkalemia: resolved #Non anion gap metabolic acidosis * resolved. #Lactic acidosis: * resolved. #Type 2 diabetes mellitus; will treat despite being hospice. Can be deescalated as outpt. on NPH insulin 10 units qhs and 20 units qam. Insulin sliding scale. Accu-Cheks ACH S. A1C is 6.9 #Dyslipidemia: On statin DVT prophylaxis: SCDs; unable to anticoagulate due to anemia. Pt elected to proceed with hospice. Given that, will deescalate therapy and focus on comfort measures. DW family at bedside.
[2022-06-01] MEDS: Insulin Lispro 100 UNIT/ML INSULN.PEN SC ×2 (07:42→11:53)
--- NOTE | 2022-06-01 07:48 | PCM.PROGNOTE ---
Subjective Subjective Patient appears to be very somnolent and mildly depressed. She denies any abdominal pain. Denies any nausea. She had a possible aspiration episode yesterday. Objective Data Objective Data Vital Signs: Vital Signs Temp Pulse Resp BP Pulse Ox O2 Del Method O2 Flow Rate 97.3 F L 134 H 18 127/52 H 94 Nasal Cannula 2 06/01/22 00:00 06/01/22 07:47 06/01/22 06:00 06/01/22 06:00 06/01/22 06:00 06/01/22 06:00 06/01/22 06:00 Oxygen Flow Rate (L/min) 2 Oxygen Delivery Method Nasal Cannula Weight: 225 lb 8.526 oz Body Mass Index (BMI) 38.2 Intake & Output: Intake and Output for Last 24 Hours 05/30/22 05/31/22 06/01/22 23:59 23:59 23:59 Intake Total 2759.34 / 2826.24 1053.71 / 1053.71 1101.67 / 1101.67 Output Total 470 / 1220 1400 / 1400 Balance 2289.34 / 1606.24 -346.29 / -346.29 1101.67 / 1101.67 Lab / Micro Data Result Diagrams: 06/01/22 04:00 06/01/22 04:00 Labs: Laboratory Results - last 24 hr 05/28/22 13:20: RBC Folate Hemolysate 410.0, RBC Folate 1916, Hematocrit 21.4 L 05/28/22 13:20: Crossmatch See Detail 05/31/22 11:05: POC Glucose 398 H 05/31/22 16:39: POC Glucose 299 H 05/31/22 21:50: POC Glucose 286 H 06/01/22 04:00: WBC 8.2, RBC 2.05 L, Hgb 6.6 L, Hct 20.0 L, MCV 97.6, MCH 32.2 H, MCHC 33.0, RDW Std Deviation 59.0 H, RDW Coeff of Sherif 17.4 H, Plt Count 119 L, MPV 9.7, Immature Gran % (Auto) 1.000 H, Neut % (Auto) 82.7 H, Lymph % (Auto) 9.2 L, [place] % (Auto) 5.9, Eos % (Auto) 1.1, Baso % (Auto) 0.1, Absolute Neuts (auto) 6.8, Absolute Lymphs (auto) 0.75 L, Nucleated RBC % 0.6 06/01/22 04:00: Sodium 143, Potassium 3.8, Chloride 113 H, Carbon Dioxide 24.0, Anion Gap 6, BUN 36 H, Creatinine 0.97, Estim Creat Clear Calc 39.56, Est GFR (MDRD) Af Amer 73, Est GFR (MDRD) Non-Af 60, BUN/Creatinine Ratio 37.3 H, Glucose 188 H, Calcium 7.6 L Micro: Microbiology 05/31/22 15:10 Stool Stool Occult Blood (NNEKA) - Final Occult Blood Positive 05/30/22 09:40 Urine Catheter - Davis Urine Culture - Preliminary Yeast Like Organism 05/29/22 Unknown Tissue - Femoral Membrane Gram Stain - Final 05/29/22 Unknown Tissue - Femoral Membrane Wound Culture - Preliminary No growth-Final to follow 05/29/22 Unknown Tissue - Femoral Membrane Anaerobic Culture - Preliminary No growth in 48 hours. 05/29/22 Unknown Tissue - Tibial Membrane Gram Stain - Final 05/29/22 Unknown Tissue - Tibial Membrane Wound Culture - Preliminary No growth-Final to follow 05/29/22 Unknown Tissue - Tibial Membrane Anaerobic Culture - Preliminary No growth in 48 hours. 05/29/22 Unknown Tissue - Suprapatellar Pouch Gram Stain - Final 05/29/22 Unknown Tissue - Suprapatellar Pouch Wound Culture - Preliminary No growth-Final to follow 05/29/22 Unknown Tissue - Suprapatellar Pouch Anaerobic Culture - Preliminary No growth in 48 hours. Radiography Diagnostic Testing: Radiology Impression Chest X-Ray 05/31/22 11:14 IMPRESSION: No acute pulmonary process Electronically Signed: Michel Salter MD at 11:50 EDT , Rhythm Strip Rhythm Strip: A-fib Rate: 136 Ectopy: None Assessment & Plan Assessment/Plan (1) Acute blood loss anemia: PLAN: Patient is iron deficient with anemia in the setting of sepsis, rapid atrial fibrillation. At this time regarding possible hospice options. If she is not going to go hospice in light of her continued need for anticoagulation she can undergo an upper endoscopy to look for signs of acute or chronic blood loss anemia. As for now the hemoglobin seems to be relatively stable. (2) Aspiration into airway: PLAN: Patient possibly had an episode of aspiration yesterday when attempting to eat. At this time she is n.p.o. If she is not hospice or needs ongoing nutrition she may benefit from a percutaneous endoscopic gastrostomy tube. I will wait to hear decision from the family regarding hospice. Charges/Coding Visit Charges Inpatient E&M: 86947 Subs Hosp L2
[2022-06-01 08:05] LABS: Bedside Glucose 166 mg/dL (74-106)
--- NOTE | 2022-06-01 09:49 | CASEMGMT ---
Hospice was present talking with patient's family. NOLAN spoke with Mc from Hospice and family did sign papers. Family would like for patient to return to [facility] on Hospice. Mc was contacting their mobile unit to see if they are able to transport patient. Mc from Hospice will let NOLAN know. NOLAN called Tiera at [facility] and let her know patient will be returning on Hospice today. NOLAN will update Tiera once transport has been arranged. Plan: d/c back to [facility] under [facility]. Phoebe Mobley SENIOR ORACLE [employer] SQL DEVELOPERUche ADLER
--- NOTE | 2022-06-01 10:09 | PCM.PN.ORT ---
Subjective Subjective Patient lying in bed awake. Nurse at her bedside. Patient is scheduled to go to hospice this afternoon. Patient states her pain has been well managed. Patient denies chest pain, shortness of breath, calf pain, nausea vomiting. Patient has been unable to ambulate as she is unable to stand without 4 person assist, due to weakness, and dizziness. Objective Data Objective Data Vital Signs: Vital Signs Temp Pulse Resp BP Pulse Ox O2 Del Method O2 Flow Rate 98.9 F 133 H 19 H 134/57 H 97 Nasal Cannula 2 06/01/22 07:00 06/01/22 09:00 06/01/22 09:00 06/01/22 09:00 06/01/22 09:00 06/01/22 09:00 06/01/22 09:00 Oxygen Flow Rate (L/min) 2 Oxygen Delivery Method Nasal Cannula Weight: 102.3 kg Body Mass Index (BMI) 38.2 Intake & Output: Intake and Output for Last 24 Hours 05/30/22 05/31/22 06/01/22 23:59 23:59 23:59 Intake Total 2759.34 / 2826.24 1053.71 / 1053.71 1156.67 / 1156.67 Output Total 470 / 1220 1400 / 1400 Balance 2289.34 / 1606.24 -346.29 / -346.29 1156.67 / 1156.67 Lab / Micro Data Result Diagrams: 06/01/22 04:00 06/01/22 04:00 Labs: Laboratory Results - last 24 hr 05/28/22 13:20: RBC Folate Hemolysate 410.0, RBC Folate 1916, Hematocrit 21.4 L 05/31/22 11:05: POC Glucose 398 H 05/31/22 16:39: POC Glucose 299 H 05/31/22 21:50: POC Glucose 286 H 06/01/22 04:00: WBC 8.2, RBC 2.05 L, Hgb 6.6 L, Hct 20.0 L, MCV 97.6, MCH 32.2 H, MCHC 33.0, RDW Std Deviation 59.0 H, RDW Coeff of Sherif 17.4 H, Plt Count 119 L, MPV 9.7, Immature Gran % (Auto) 1.000 H, Neut % (Auto) 82.7 H, Lymph % (Auto) 9.2 L, [place] % (Auto) 5.9, Eos % (Auto) 1.1, Baso % (Auto) 0.1, Absolute Neuts (auto) 6.8, Absolute Lymphs (auto) 0.75 L, Nucleated RBC % 0.6 06/01/22 04:00: Sodium 143, Potassium 3.8, Chloride 113 H, Carbon Dioxide 24.0, Anion Gap 6, BUN 36 H, Creatinine 0.97, Estim Creat Clear Calc 39.56, Est GFR (MDRD) Af Amer 73, Est GFR (MDRD) Non-Af 60, BUN/Creatinine Ratio 37.3 H, Glucose 188 H, Calcium 7.6 L 06/01/22 07:41: POC Glucose 166 H Micro: Microbiology 05/29/22 Unknown Tissue - Tibial Membrane Gram Stain - Final 05/29/22 Unknown Tissue - Tibial Membrane Wound Culture - Final No growth aerobically. 05/29/22 Unknown Tissue - Tibial Membrane Anaerobic Culture - Preliminary No growth in 48 hours. 05/29/22 Unknown Tissue - Femoral Membrane Gram Stain - Final 05/29/22 Unknown Tissue - Femoral Membrane Wound Culture - Final No growth aerobically. 05/29/22 Unknown Tissue - Femoral Membrane Anaerobic Culture - Preliminary No growth in 48 hours. 05/29/22 Unknown Tissue - Suprapatellar Pouch Gram Stain - Final 05/29/22 Unknown Tissue - Suprapatellar Pouch Wound Culture - Final No growth aerobically. 05/29/22 Unknown Tissue - Suprapatellar Pouch Anaerobic Culture - Preliminary No growth in 48 hours. 05/30/22 08:20 Blood Culture (Wb) - Left Hand Blood Culture - Preliminary No growth in 48 hours. 05/30/22 07:40 Blood Culture (Wb) - Pic Blood Culture - Preliminary No growth in 48 hours. 05/31/22 15:10 Stool Stool Occult Blood (NNEKA) - Final Occult Blood Positive 05/30/22 09:40 Urine Catheter - Davis Urine Culture - Preliminary Yeast Like Organism Radiography Diagnostic Testing: Radiology Impression Chest X-Ray 05/31/22 11:14 IMPRESSION: No acute pulmonary process Electronically Signed: Michel Salter MD at 11:50 EDT , Rhythm Strip Rhythm Strip: A-fib Rate: 136 Ectopy: None Physical Exam Narrative Upon exam patient laying comfortably in bed. Patient alert. Patient in no obvious respiratory distress, speaking in full sentences. Nurse at bedside holding pressure on a needlestick in the right forearm. Patient is good motion of the upper extremities. Exam of the left knee, the dressing was intact no active bleeding. Patient had no calf tenderness. Patient has good plantar flexion dorsiflexion of the bilateral feet without paresthesias. Patient had a strong posterior tibial pulse. Patient's hemoglobin is down to 6.6. Medicine has been managing her medically and has received transfusion. Const alert and oriented x3 General Appearance: cooperative Eyes PERRL Neuro CN's II-XII intact bilaterally Psych mental status grossly normal and affect normal Assessment & Plan Assessment/Plan (1) Status post revision of total replacement of left knee: PLAN: Plan 1. Continue all pain medications as prescribed 2. Medicine will continue managing medically. 3. Patient is orthopedically stable. 4. Patient to follow up with Dr. Gerard in 2 weeks. 5. Continue ice to the left knee.
--- NOTE | 2022-06-01 10:49 | CASEMGMT ---
NOLAN received a call from [facility] and their mobile unit is not available. NOLAN will set up transport once orders are in and COVID test done. DNR is completed and signed. Phoebe Mobley MSW VITOR
--- NOTE | 2022-06-01 11:28 | TREXTCAR_ITS ---
Diet Diet Order/Speech Therapy: Regular diet Wound(s) left yancey: Wound Type: Surgical Incision rt yancey: Wound Type: blister, broken Therapies Weight Bearing: Weight bearing as tolerated Problem/Diagnosis (1) Closed fracture of left distal femur: Status: Acute Code(s): S72.402A - Unspecified fracture of lower end of left femur, initial encounter for closed fracture Plan: 05/29: s/p revision of left total knee replacement to hinged prosthesis orthopedic surgery on board PT/OT on board fall precautions continue current pain meds (2) Shock: Status: Acute Code(s): R57.9 - Shock, unspecified Plan: resolved shock, likely hemorrhagic vs septic likely due to blood loss from surgery though she was also on ertapenem for chronic spine infection, so septic shock cannot be ruled out has been transfused a total of 2 units since surgery; was transfused with 2 units prior to surgery has been weaned off vasopressin; now on levophed critical care on board. vassopressors off (3) Acute blood loss anemia: Status: Acute Code(s): D62 - Acute posthemorrhagic anemia Plan: appears to be an iron deficiency anemia and complicated by blood loss from surgery has been transfused a total of 4 units of PRBCs Iron panel showed low iron level of 13 with TIBC of 275 and iron saturation of only 10.9 with ferritin only mildly elevated at 266. vitamin B12 is WNL. rbc folate is pending GI following, recommending endoscopy on IV pantoprazole 40mg bid Hg 6.6 today Since she is hospice, will not transfuse. (4) Paroxysmal atrial fibrillation: Status: Chronic Code(s): I48.0 - Paroxysmal atrial fibrillation Plan: At rate has been poorly controlled. This likely because she is not been getting her beta-blockers Patient's metoprolol resumed today. IV Lopressor as needed. (5) SRIDEVI (acute kidney injury): Status: Acute Code(s): N17.9 - Acute kidney failure, unspecified Plan: on CKD 3B nephrology following. non-oliguric. HLIV (6) Discitis: Status: Acute Code(s): M46.40 - Discitis, unspecified, site unspecified Plan: Discitis/osteomyelitis at [facility] Pt declined surgery Plan was for long-term antibiotics. on ertapenam Given that she will be hospice, will DC abx. Plan #Leucocytosis * resolved. Down to 8.4. #Hyperkalemia: resolved #Non anion gap metabolic acidosis * resolved. #Lactic acidosis: * resolved. #Type 2 diabetes mellitus; will treat despite being hospice. Can be deescalated as outpt. on NPH insulin 10 units qhs and 20 units qam. Insulin sliding scale. Accu-Cheks ACH S. A1C is 6.9 #Dyslipidemia: On statin DVT prophylaxis: SCDs; unable to anticoagulate due to anemia. Pt elected to proceed with hospice. Given that, will deescalate therapy and focus on comfort measures. DW family at bedside. Allergies/Procedures Done in Hospital Allergies amoxicillin [From Augmentin] Allergy (Verified 05/28/22 02:16) PT UNSURE OF REACTION clavulanic acid [From Augmentin] Allergy (Verified 05/28/22 02:16) PT UNSURE OF REACTION Penicillins Allergy (Verified 04/11/19 11:03) Rash simvastatin [From Zocor] Allergy (Verified 04/11/19 11:03) Rash lisinopril Adverse Reaction (Intermediate, Verified 04/11/19 11:03) HYPERKALEMIA atorvastatin calcium [From Lipitor] Adverse Reaction (Verified 04/11/19 11:03) Pain in joints Procedures: - (Revision left total knee replacement to hinged prosthesis/distal femoral replacement both components) Type of Care/Length of Stay Estimated LOS: More Than 30 Days Type of Care Needed: Skilled Rehab Potential: Poor Prognosis: Poor Additional Orders/Day of Discharge Day of Discharge: 06/01/22 Dietary and Speech Recommendations Dietitian Recommendations/Changes: Carbohydrate controlled, no added salt given marginal PO intake- texture/consistency modifications per OFFICE AUDITOR. Regular diet if pt/family signs w/ hospice care. 120mL Glucerna ONS 4x/day w/ medpass when diet resumed Discharge Plan Admission Admit Date/Time: 05/28/22 03:11 Primary Reason for Your Visit: femur fracture Attending Provider: Jac Payan Primary Care Provider: Josh Ma Consulting Providers: Jairo Harris ; Aldo Gonsalez ; Tom Ash ; Mariana Chowdary NP ; Rashi Gerard ; [facility] ; Sharri Salguero Discharge Orders/Prescriptions Prescriptions: New oxycodone 5 mg Tablet 5 mg PO Q4H PRN PRN (Reason: Pain Score 4-10) 3 Days Qty: 20 0RF insulin lispro [Humalog KwikPen Insulin] 100 unit/mL Insulin Pen See Protocol subcut ACHS Qty: 15 0RF Protocol: 4. Sliding Scale Insulin High-Med Dosing Condition: 150-199 mg/dl = 2 units Condition: 200-259 mg/dl = 4 units Condition: 260-324 mg/dl = 6 units Condition: 325-374 mg/dl = 8 units Condition: 375-409 mg/dl = 10 units Condition: 410-449 mg/dl = 11 units Condition: Greater than 449 call physician Protocol Text: - Use for Total Daily Dose of Insulin 56-80 units - Patient who are insulin resistant or septic HIGH MEDIUM DOSING ALGORITHM Continued gabapentin 100 MG capsule 100 mg PO TIDCM Label Comments: nerve pain insulin NPH isoph U-100 human 100 UNITS/ML insulin pen 10 units SC DINNER Label Comments: blood sugar latanoprost 0.005 % Drops 1 drp EACH EYE QHS acetaminophen 500 mg Tablet 1,000 mg PO BID PRN (Reason: Pain) pantoprazole [Protonix] 40 mg Tablet,Delayed Release (Dr/Ec) 40 mg PO QHS Humulin N NPH U-100 Insulin 100 unit/mL suspension 20 unit SUBCUT BREAKFAST Label Comments: INJECT 20 UNITS SUBCUTANEOUSLY IN THE MORNING AND 10 IN THE EVENING insulin lispro 100 unit/mL Cartridge 5 unit subcut BREAKFAST Discontinued aspirin 81 MG tablet,chewable 81 mg PO DAILY@0800 Label Comments: heart health calcium carbonate-vitamin D3 1 TABLET tablet 1 tab PO DAILY Label Comments: supplement pravastatin 20 mg tablet 10 mg PO QHS Label Comments: cholesterol lowering hydrocodone-acetaminophen 5-325 mg Tablet 1 tab PO Q8H PRN (Reason: Pain) diltiazem HCl 360 mg Capsule,Extended Release 24hr 360 mg PO DAILY metoprolol tartrate 50 mg Tablet 50 mg PO Q8H ertapenem 1 gram Recon Soln 0.5 g IV DAILY Senna Plus (senna-docusate) Tablet 1 tab PO BID PRN (Reason: Constipation) insulin lispro 100 unit/mL Cartridge See Protocol subcut ACHS Protocol: 6. Sliding Scale Insulin Custom Condition: mg/dl range Dose/Route: Number of Units Condition: 151-200 Dose/Route: 5 Condition: 201-250 Dose/Route: 7 Condition: 251-300 Dose/Route: 10 Condition: 301-350 Dose/Route: 12 Condition: 351-400 Dose/Route: 15 Condition: >401 Instruction: call MD Protocol Text: Custom Sliding Scale Eliquis 5 mg Tablet 5 mg PO BID daptomycin 500 mg IV push QODAY losartan 25 mg PO/SL DAILY Referrals / Follow Up: Josh Ma MD [Primary Care Provider] - Disposition Disposition (needs filled in before D/C Order can be placed): Hospice in Medical Facility
--- NOTE | 2022-06-01 11:39 | DS.PCM_ITS ---
Providers Date of Admission: 05/28/22 Primary Care Physician: Dr. Josh Ma MD Consultations 05/28/22 03:21 Consult: Orthopedics Routine Consulting Provider: Rashi Gerard Reason for Consult: Left femur fracture EMERGENT Consult: No Notified: Yes Date Notified: 05/28/22 Time Notified: 03:17 Method of Notification: ED Physician Initiated Comments:: ED physician in [facility] consulted Dr Gerard accepted 05/29/22 09:53 Consult: Gastroenterology Routine Consulting Provider: [facility] Reason for Consult: iron deficiency anemia EMERGENT Consult: No Notified: Yes Date Notified: 05/29/22 Time Notified: 09:53 Method of Notification: Text 05/29/22 17:53 Consult: Stencil Maker / Pulmonary Medicine Routine Consulting Provider: Pulmonary Medicine [facility] Reason for Consult: shock, likely hemorrhagic due to blood loss from surgery EMERGENT Consult: No Notified: Yes Date Notified: 05/29/22 Time Notified: 16:04 Method of Notification: Text 05/29/22 19:25 Consult: Nephrology Routine Consulting Provider: [facility] Reason for Consult: Renal insufficiency EMERGENT Consult: No Notified: Yes Date Notified: 05/30/22 Time Notified: 08:15 Method of Notification: Answering Service Reason For Visit: LEFT FEMUR FRACTURE Diagnosis Discharge Diagnosis (1) Closed fracture of left distal femur: Status: Acute Code(s): S72.402A - Unspecified fracture of lower end of left femur, initial encounter for closed fracture Qualifiers: Encounter type: initial encounter Fracture morphology: unspecified fracture morphology Qualified Code(s): S72.402A - Unspecified fracture of lower end of left femur, initial encounter for closed fracture Plan: 05/29: s/p revision of left total knee replacement to hinged prosthesis orthopedic surgery on board PT/OT on board fall precautions continue current pain meds (2) Shock: Status: Acute Code(s): R57.9 - Shock, unspecified Plan: resolved shock, likely hemorrhagic vs septic likely due to blood loss from surgery though she was also on ertapenem for chronic spine infection, so septic shock cannot be ruled out has been transfused a total of 2 units since surgery; was transfused with 2 units prior to surgery has been weaned off vasopressin; now on levophed critical care on board. vassopressors off (3) Acute blood loss anemia: Status: Acute Code(s): D62 - Acute posthemorrhagic anemia Plan: appears to be an iron deficiency anemia and complicated by blood loss from surgery has been transfused a total of 4 units of PRBCs Iron panel showed low iron level of 13 with TIBC of 275 and iron saturation of only 10.9 with ferritin only mildly elevated at 266. vitamin B12 is WNL. rbc folate is pending GI following, recommending endoscopy on IV pantoprazole 40mg bid Hg 6.6 today Since she is hospice, will not transfuse. (4) Paroxysmal atrial fibrillation: Status: Chronic Code(s): I48.0 - Paroxysmal atrial fibrillation Plan: At rate has been poorly controlled. This likely because she is not been getting her beta-blockers Patient's metoprolol resumed today. IV Lopressor as needed. (5) SRIDEVI (acute kidney injury): Status: Acute Code(s): N17.9 - Acute kidney failure, unspecified Plan: on CKD 3B nephrology following. non-oliguric. HLIV (6) Discitis: Status: Acute Code(s): M46.40 - Discitis, unspecified, site unspecified Plan: Discitis/osteomyelitis at [facility] Pt declined surgery Plan was for long-term antibiotics. on ertapenam Given that she will be hospice, will DC abx. Plan #Leucocytosis * resolved. Down to 8.4. #Hyperkalemia: resolved #Non anion gap metabolic acidosis * resolved. #Lactic acidosis: * resolved. #Type 2 diabetes mellitus; will treat despite being hospice. Can be deescalated as outpt. on NPH insulin 10 units qhs and 20 units qam. Insulin sliding scale. Accu-Cheks ACH S. A1C is 6.9 #Dyslipidemia: On statin DVT prophylaxis: SCDs; unable to anticoagulate due to anemia. Pt elected to proceed with hospice. Given that, will deescalate therapy and focus on comfort measures. DW family at bedside. Medications at Discharge Home Medications gabapentin 100 mg capsule 100 mg PO TIDCM 03/04/16 insulin NPH isoph U-100 human 100 unit/mL (3 mL) subcutaneous pen 10 units subcut DINNER 03/04/16 acetaminophen 500 mg tablet 1,000 mg PO BID PRN Pain 05/28/22 insulin NPH isoph U-100 human 100 unit/mL subcutaneous suspension (Humulin N NPH U-100 Insulin (isophane susp)) 20 unit subcut BREAKFAST 05/28/22 insulin lispro 100 unit/mL subcutaneous cartridge 5 unit subcut BREAKFAST 05/28/22 latanoprost 0.005 % eye drops 1 drp EACH EYE QHS 05/28/22 pantoprazole 40 mg tablet,delayed release (Protonix) 40 mg PO QHS 05/28/22 insulin lispro 100 unit/mL subcutaneous pen (Humalog KwikPen (U-100) Insulin) See Protocol subcut ACHS #15 mL 06/01/22 oxycodone 5 mg tablet 5 mg PO Q4H PRN PRN Pain Score 4-10 3 days #20 tabs 06/01/22 Hospital Course Operations - (Revision left total knee replacement to hinged prosthesis/distal femoral replacement both components) Summary of Care Provided Minutes Spent on Discharge: 35 Weight / BMI Weight Weight: 102.3 kg Body Mass Index (BMI) 38.2 ABG / Lab / Microbiology Data Result Diagrams: 06/01/22 04:00 06/01/22 04:00 Laboratory: Laboratory Results - last 24 hr 05/28/22 13:20: RBC Folate Hemolysate 410.0, RBC Folate 1916, Hematocrit 21.4 L 05/31/22 11:05: POC Glucose 398 H 05/31/22 16:39: POC Glucose 299 H 05/31/22 21:50: POC Glucose 286 H 06/01/22 04:00: WBC 8.2, RBC 2.05 L, Hgb 6.6 L, Hct 20.0 L, MCV 97.6, MCH 32.2 H , MCHC 33.0, RDW Std Deviation 59.0 H, RDW Coeff of Sherif 17.4 H, Plt Count 119 L, MPV 9.7, Immature Gran % (Auto) 1.000 H, Neut % (Auto) 82.7 H, Lymph % (Auto) 9.2 L, [place] % (Auto) 5.9, Eos % (Auto) 1.1, Baso % (Auto) 0.1, Absolute Neuts (auto) 6.8, Absolute Lymphs (auto) 0.75 L, Nucleated RBC % 0.6 06/01/22 04:00: Sodium 143, Potassium 3.8, Chloride 113 H, Carbon Dioxide 24.0, Anion Gap 6, BUN 36 H, Creatinine 0.97, Estim Creat Clear Calc 39.56, Est GFR (MDRD) Af Amer 73, Est GFR (MDRD) Non-Af 60, BUN/Creatinine Ratio 37.3 H, Glucose 188 H, Calcium 7.6 L 06/01/22 07:41: POC Glucose 166 H Microbiology: Microbiology 06/01/22 10:45 Nasal Secretion SARS-CoV-2 Antigen (Rapid) - Final 05/29/22 Unknown Tissue - Tibial Membrane Gram Stain - Final 05/29/22 Unknown Tissue - Tibial Membrane Wound Culture - Final No growth aerobically. 05/29/22 Unknown Tissue - Tibial Membrane Anaerobic Culture - Preliminary No growth in 48 hours. 05/29/22 Unknown Tissue - Femoral Membrane Gram Stain - Final 05/29/22 Unknown Tissue - Femoral Membrane Wound Culture - Final No growth aerobically. 05/29/22 Unknown Tissue - Femoral Membrane Anaerobic Culture - Preliminary No growth in 48 hours. 05/29/22 Unknown Tissue - Suprapatellar Pouch Gram Stain - Final 05/29/22 Unknown Tissue - Suprapatellar Pouch Wound Culture - Final No growth aerobically. 05/29/22 Unknown Tissue - Suprapatellar Pouch Anaerobic Culture - Preliminary No growth in 48 hours. 05/30/22 08:20 Blood Culture (Wb) - Left Hand Blood Culture - Preliminary No growth in 48 hours. 05/30/22 07:40 Blood Culture (Wb) - Pic Blood Culture - Preliminary No growth in 48 hours. 05/31/22 15:10 Stool Stool Occult Blood (NNEKA) - Final Occult Blood Positive 05/30/22 09:40 Urine Catheter - Davis Urine Culture - Preliminary Yeast Like Organism Radiography Diagnostic Testing: Radiology Impression Chest X-Ray 05/31/22 11:14 IMPRESSION: No acute pulmonary process Electronically Signed: Michel Salter MD at 11:50 EDT , Meaningful Use Info Meaningful Use Diagnoses (Choose all that apply): None applicable Discharge Plan Admission Admit Date/Time: 05/28/22 03:11 Primary Reason for Your Visit: femur fracture Attending Provider: Jac Payan Primary Care Provider: Josh Ma Consulting Providers: Jairo Harris ; Aldo Gonsalez ; Tom Ash ; Mariana Chowdary NP ; Rashi Gerard ; [facility] ; Sharri Salguero Discharge Orders/Prescriptions Prescriptions: New oxycodone 5 mg Tablet 5 mg PO Q4H PRN PRN (Reason: Pain Score 4-10) 3 Days Qty: 20 0RF insulin lispro [Humalog KwikPen Insulin] 100 unit/mL Insulin Pen See Protocol subcut ACHS Qty: 15 0RF Protocol: 4. Sliding Scale Insulin High-Med Dosing Condition: 150-199 mg/dl = 2 units Condition: 200-259 mg/dl = 4 units Condition: 260-324 mg/dl = 6 units Condition: 325-374 mg/dl = 8 units Condition: 375-409 mg/dl = 10 units Condition: 410-449 mg/dl = 11 units Condition: Greater than 449 call physician Protocol Text: - Use for Total Daily Dose of Insulin 56-80 units - Patient who are insulin resistant or septic HIGH MEDIUM DOSING ALGORITHM Continued gabapentin 100 MG capsule 100 mg PO TIDCM Label Comments: nerve pain insulin NPH isoph U-100 human 100 UNITS/ML insulin pen 10 units SC DINNER Label Comments: blood sugar latanoprost 0.005 % Drops 1 drp EACH EYE QHS acetaminophen 500 mg Tablet 1,000 mg PO BID PRN (Reason: Pain) pantoprazole [Protonix] 40 mg Tablet,Delayed Release (Dr/Ec) 40 mg PO QHS Humulin N NPH U-100 Insulin 100 unit/mL suspension 20 unit SUBCUT BREAKFAST Label Comments: INJECT 20 UNITS SUBCUTANEOUSLY IN THE MORNING AND 10 IN THE EVENING insulin lispro 100 unit/mL Cartridge 5 unit subcut BREAKFAST Discontinued aspirin 81 MG tablet,chewable 81 mg PO DAILY@0800 Label Comments: heart health calcium carbonate-vitamin D3 1 TABLET tablet 1 tab PO DAILY Label Comments: supplement pravastatin 20 mg tablet 10 mg PO QHS Label Comments: cholesterol lowering hydrocodone-acetaminophen 5-325 mg Tablet 1 tab PO Q8H PRN (Reason: Pain) diltiazem HCl 360 mg Capsule,Extended Release 24hr 360 mg PO DAILY metoprolol tartrate 50 mg Tablet 50 mg PO Q8H ertapenem 1 gram Recon Soln 0.5 g IV DAILY Senna Plus (senna-docusate) Tablet 1 tab PO BID PRN (Reason: Constipation) insulin lispro 100 unit/mL Cartridge See Protocol subcut [facility] Protocol: 6. Sliding Scale Insulin Custom Condition: mg/dl range Dose/Route: Number of Units Condition: 151-200 Dose/Route: 5 Condition: 201-250 Dose/Route: 7 Condition: 251-300 Dose/Route: 10 Condition: 301-350 Dose/Route: 12 Condition: 351-400 Dose/Route: 15 Condition: >401 Instruction: call MD Protocol Text: Custom Sliding Scale Eliquis 5 mg Tablet 5 mg PO BID daptomycin 500 mg IV push QODAY losartan 25 mg PO/SL DAILY Referrals / Follow Up: Josh Ma MD [Primary Care Provider] - Disposition Disposition (needs filled in before D/C Order can be placed): Hospice in Medical Facility Charges/Coding Visit Charges Inpatient E&M: 81116 Disch Hosp
[2022-06-01 12:15] LABS: Bedside Glucose 197 mg/dL (74-106)
--- NOTE | 2022-06-01 12:16 | CASEMGMT ---
SW arranged for patient to get picked up at 1p. SW faxed orders, COVID test, DNR, and pepper picker time to [facility]. SW also called Tiera at [facility] and let her know as well as Mc at Hospice. SW notified patient's family and RN. All in agreement with d/c plan. Plan: d/c to [facility] under Hospice, Intermediate level of care. Physicians transported patient via cot. Phoebe Mobley [employer]
== END 2022-06-01 13:06 | disposition hospice, inpatient (51) | DRG 466 ==
LOC: MS3 05-29 10:26 → ICU 05-29 17:30
PROVIDERS: Anesthesiology; Internal Medicine Critical Care Medicine; Internal Medicine Nephrology; Specialist; Student in an Organized Health Care Education/Training Program; Admitting Provider Internal Medicine; PCP Internal Medicine
PROC: 0SRD0J9 Replacement of Left Knee Joint with Synthetic Substitute, Cemented, Open Approach (ICD-10-PCS; principal; 2022-05-29 13:05)
DX: M80.052A Age-related osteoporosis with current pathological fracture, left femur, initial encounter for fracture (principal); T81.12XA Postprocedural septic shock, initial encounter; A41.9 Sepsis, unspecified organism; T81.19XA Other postprocedural shock, initial encounter; I48.92 Unspecified atrial flutter; D62 Acute posthemorrhagic anemia; M46.26 Osteomyelitis of vertebra, lumbar region; M97.12XA Periprosthetic fracture around internal prosthetic left knee joint, initial encounter; I27.21 Secondary pulmonary arterial hypertension; D63.1 Anemia in chronic kidney disease; E11.22 Type 2 diabetes mellitus with diabetic chronic kidney disease; E66.01 Morbid (severe) obesity due to excess calories; N18.32 Chronic kidney disease, stage 3b; I48.0 Paroxysmal atrial fibrillation; Z79.4 Long term (current) use of insulin; D50.9 Iron deficiency anemia, unspecified; E78.00 Pure hypercholesterolemia, unspecified; I12.9 Hypertensive chronic kidney disease with stage 1 through stage 4 chronic kidney disease, or unspecified chronic kidney disease; I95.81 Postprocedural hypotension; E87.5 Hyperkalemia; Z96.652 Presence of left artificial knee joint; Z78.0 Asymptomatic menopausal state; G89.29 Other chronic pain; Z79.82 Long term (current) use of aspirin; Z79.899 Other long term (current) drug therapy; Z79.01 Long term (current) use of anticoagulants; Z68.37 Body mass index [BMI] 37.0-37.9, adult; Y83.8 Other surgical procedures as the cause of abnormal reaction of the patient, or of later complication, without mention of misadventure at the time of the procedure; Z66 Do not resuscitate; N28.1 Cyst of kidney, acquired
CPT/HCPCS: 36415; 36600; 71045; 73560; 80048; 81001; 82274; 82570; 82607; 82728; 82747; 82803; 82962; 83036; 83540; 83550; 83605; 83735; 84100; 84145; 84300; 84484; 85014; 85018; 85025; 85027; 85610; 85730; 86850; 86900; 86901; 86920; 86922; 87015; 87040; 87070; 87075; 87086; 87088; 87102; 87116; 87176; 87205; 87206; 87641; 87811; 88305; 88311; 92610; 93005; 93306; 97110; 97163; 97166; 97530; 97803; 99251; C1776; J7030; J7040; J7050; J7120; P9016; Q9957; A4216; C8929; G0463; J0610; J3490